=== PATIENT | male | born 1965 | race Two or more races ===

== ENCOUNTER → 2020-01-25 09:09 | Outpatient (BNVA) | payer MEDICAID, SELFPAY | PROVIDERS: Visit Provider Internal Medicine Gastroenterology | DX: K59.09 Other constipation (principal); K21.9 Gastro-esophageal reflux disease without esophagitis; K74.60 Unspecified cirrhosis of liver; D64.9 Anemia, unspecified; Z79.899 Other long term (current) drug therapy; Z86.19 Personal history of other infectious and parasitic diseases | CPT/HCPCS: 99213 ==

== ENCOUNTER 2020-01-26 10:40 | Emergency (ER) | payer MEDICAID, SELFPAY | END 2020-01-26 13:39 | disposition left against medical advice (07) | PROVIDERS: Emergency Provider Emergency Medicine | DX: R07.9 Chest pain, unspecified (principal); I10 Essential (primary) hypertension; F17.210 Nicotine dependence, cigarettes, uncomplicated | CPT/HCPCS: 99281 ==

== ENCOUNTER 2020-01-27 07:54 | Emergency (ER) | payer MEDICAID, SELFPAY ==
[2020-01-27 08:05] VITALS: BP 135/71; PULSE 74; RESP 14; TEMP 36.8; O2SAT 98; BMI 24.6
--- NOTE | 2020-01-27 08:19 | ECG_ITS ---
Test Reason : CHESTPAIN Blood Pressure : / mmHG Vent. Rate : 072 BPM Atrial Rate : 072 BPM P-R Int : 140 ms QRS Dur : 078 ms QT Int : 390 ms P-R-T Axes : 006 067 054 degrees QTc Int : 427 ms Normal sinus rhythm Nonspecific ST abnormality Inferior leads Abnormal ECG No significant change was found Referred By: Alley Hirsch Electronically Signed By:JOCELYNE RAINEY MD
--- NOTE | 2020-01-27 08:19 | XR_ITS ---
EXAMINATION: XR CHEST CLINICAL INFORMATION: Chest pain. COMPARISON: Chest 05/13/2019 TECHNIQUE: Frontal view of the chest was obtained. FINDINGS: The lungs are well-expanded and clear of acute process. The heart size and pulmonary vascularity is normal. No gross bony abnormality seen. Previously visualized rim calcified lesion along the posterior right eighth rib is not seen at this time. XR/XR chest 1V IMPRESSION: Unremarkable chest exam. No change from 05/13/2019.
--- NOTE | 2020-01-27 08:36 | ED.CHESTPAIN ---
HPI - Chest Pain General Chief Complaint: Chest Pain Stated Complaint: diff breathing, chest pain Time Seen by Provider: 01/27/20 08:29 Source: patient Mode of arrival: ambulatory Limitations: no limitations History of Present Illness HPI narrative: 54yoM c PMHx of hypertension, anemia, hepatitis-C, cirrhosis of liver without ascites and GERD presenting to the ED with complaints of diffuse chest pain/pressure with associated shortness of breath since yesterday a.m. while he was drinking coffee this started at 8AM and has been constant. Reports that he has associated right shoulder pain, neck pain and jaw pain. Reports nothing makes the symptoms worse and nothing makes the symptoms better. Reports he has never had these symptoms in the past. Denies recent travel, history of cancer, history of hypercoagulation disorder and recent surgery. Denies drug usage including cocaine usage and alcohol usage. Denies any other symptoms complaints or concerns at this time. Related Data Home Medications Medication Instructions Recorded Confirmed amlodipine 2.5 mg-benazepril 10 mg 1 cap PO DAILY 01/25/20 01/25/20 capsule calcium-vitamin D3-vitamin K 500 tab PO 01/25/20 01/25/20 mg-1,000 unit-40 mcg chewable tablet hydralazine 10 mg tablet 10 mg PO BID 01/25/20 01/25/20 lisinopril 40 mg tablet 40 mg PO DAILY 01/25/20 01/25/20 lubiprostone 24 mcg capsule 24 mcg PO BID cap 01/25/20 01/25/20 omeprazole 40 mg capsule,delayed 40 mg PO DAILY 01/25/20 01/25/20 release Previous Rx's Medication Instructions Recorded dicyclomine 20 mg tablet 20 mg PO QID PRN #120 tab 01/08/20 lubiprostone 24 mcg capsule 24 mcg PO BID #60 cap 01/25/20 cyclobenzaprine 10 mg PO TID PRN #10 tab NS 01/27/20 naproxen 500 mg PO BID PRN #10 tab NS 01/27/20 Allergies Allergy/AdvReac Type Severity Reaction Status Date / Time latex [LATEX] Allergy Mild RASH Verified 01/27/20 08:34 Review of Systems Review of Systems: Constitutional : No Weight loss, No Fever, No Chills, No Night Sweats, No Fatigue, No Malaise ENT/Mouth : No Hearing loss, No Ear Pain, No Nasal Congestion, No Sinus Pain, No Hoarseness, No sore throat, No Rhinorrhea, No Swallowing Difficulty Eyes: No Eye Pain, No Swelling, No Redness, No Foreign Body, No Discharge, No Vision Changes Cardiovascular : no Dyspnea on Exertion, No Orthopnea, No Edema, No extremity swelling, No Palpitations Respiratory : No Cough, No Sputum, No Wheezing, No Dyspnea Gastrointestinal : No Nausea, No Vomiting, No Diarrhea, No abdominal Pain Genitourinary : No Dysuria, No Urinary Frequency, No Hematuria, No Urinary Incontinence, No Urgency, No Flank Pain, No Urinary Flow Changes, No Hesitancy Musculoskeletal : No joint pain, No Myalgias, No Joint Swelling Skin : No Skin Lesions, No rash Neuro : No Weakness, No Numbness, No Paresthesias, No Loss of Consciousness, No Dizziness, No Headache Psych : No Anxiety/Panic, No Depression, No SI/HI/AH/VH Heme/Lymph: No Bruising, No Bleeding,No Lymphadenopathy Yes all other systems are reviewed and are negative [facility] Past Medical History Attestation statement: The following information was validated with the patient. Medical History Anemia Chronic constipation Cirrhosis of liver without ascites Depression GERD (gastroesophageal reflux disease) Hepatitis C virus infection resolved after antiviral drug therapy History of drug abuse History of Helicobacter pylori infection Hypertension Periumbilical abdominal pain Surgical History H/O inguinal hernia repair (~1989) H/O removal of cyst (~06/15/13) H/O wisdom tooth extraction History of cholecystectomy (~2010) History of colonoscopy Hx of endoscopy Hx of tonsillectomy S/P excision of lipoma (~06/2014) Family History Family History Father History of high blood pressure Mother History of depression Social History Social History Alcohol intake: never Smoking Status: Current every day smoker Tobacco Type: Cigarette Use of substances other than those prescribed or required for medical reasons: No Advance Directives: No Advance Directives Information Provided: Yes Physical Exam Vital Signs: Vital Signs: Vital Signs Temp Pulse Resp BP Pulse Ox 10/24/20 12:18 79 12 133/72 97 01/27/20 10:37 64 12 138/78 97 01/27/20 08:05 98.3 F 74 14 135/71 98 Body Mass Index 24.6 vital signs have been reviewed as normal and appeared to be correct. Blood pressure normal. Heart rate normal. Respiration rate normal. Temperature normal. Oxygen saturation normal. Appearance: Alert. Oriented X3. No acute distress. Head: Normal external exam. Normocephalic. Atraumatic. No Toth signs noted. No raccoon eyes noted Eyes: PERRLA. EOMI. Conjunctiva and sclera normal. Eyelids normal. ENT: EAC normal. TM's Normal. Pharynx normal. Uvula midline. Moist mucous membranes. No trismus noted. No drooling noted. No muffled voice noted. Neck: Normal inspection. Neck supple. FROM. No adenopathy. Thyroid Normal. No meningeal signs. No neck mass noted. CVS: Normal heart rate and rhythm. Heart sound normal. No murmurs noted. Pulses normal throughout. Respiratory: No respiratory distress. Painless inspiration. Breath sounds normal. No wheezes/rales/rhonchi noted. Chest nontender. No accessory muscle usage noted or decreased air movement noted. Abdomen: Soft and nontender. Bowel sounds normal in all 4 quadrants. No distention noted. No organomegaly noted. No visible injury noted. Back: No CVA tenderness. Full range of motion noted. Skin: Skin warm and dry. Normal skin color. Normal skin turgor. No rashes/lesions/lacerations noted. Extremities: No lower extremity edema. Extremities exhibit normal range of motion. Extremities nontender. Neuro: Oriented X 3. No motor deficit. No sensory deficit. Reflexes normal. Course Course Course Narrative: 8:20am 54yoM c PMHx of hypertension, anemia, hepatitis-C, cirrhosis of liver without ascites and GERD presenting to the ED with complaints of diffuse chest pain/pressure with associated shortness of breath since yesterday a.m. while he was drinking coffee this started at 8AM and has been constant. Reports that he has associated right shoulder pain, neck pain and jaw pain. Reports nothing makes the symptoms worse and nothing makes the symptoms better. Reports he has never had these symptoms in the past. Denies recent travel, history of cancer, history of hypercoagulation disorder and recent surgery. Denies drug usage including cocaine usage and alcohol usage. Denies any other symptoms complaints or concerns at this time. - Concern for ACS vs PE vs muscular strain - Plan: Labs, EKG, CXR then re-evaluate. Reevaluation(s) Reevaluation #1: Labs all within normal limits including troponin and D-dimer. Patient reports he is still having pain therefore given 15 mg of Toradol and 10 mg of Flexeril and re-obtain a troponin 3 hours after the 1st then will re-evaluate. Although this is most likely muscular as patient now is saying that it is pain in his trapezius aspect. Will re-evaluate. Time: 12:16 Reevaluation #2: Repeat 2nd troponin within normal limits. Patient reports he feels better after the Toradol and the Flexeril therefore most likely muscular. Will DC home with symptomatic treatment along with instructions to return if any new or worsening symptoms to follow-up with primary care provider. Patient understands agrees the plan. Time: 13:11 MDM - Chest Pain Medical Records Data Attestation: I reviewed the patient's medical records. Lab Data Attestation: I reviewed the patient's lab results. Result diagrams: 01/27/20 08:22 10 08:22 Labs: Lab Results 01/27/20 01/27/20 10 Range/Units 08:22 08:22 08:22 WBC 6.1 (4.8-10.8) X10*3/uL RBC 4.04 L (4.60-5.80) X10*6/uL Hgb 11.7 L (14.0-18.0) g/dl Hct 35.3 L (42-52) % MCV 87.4 (80-98) fL MCH 29.0 (27.0-33.0) pg MCHC 33.1 (31.0-36.0) g/dl RDW 13.3 (11.0-16.0) % Plt Count 115 L (160-400) X10*3/uL MPV 11.7 (9.4-12.4) fL Immature Gran % (Auto) 0.5 H (0.0-0.4) % Neut % (Auto) 55.8 (45-73) % Lymph % (Auto) 35.3 (20-40) % [place] % (Auto) 6.7 (2-11) % Eos % (Auto) 1.5 (0-4) % Baso % (Auto) 0.2 (0-2) % Lymph # (Auto) 2.2 (1.2-4.9) X10*3/uL [place] # (Auto) 0.4 (0.1-1.2) X10*3/uL Eos # (Auto) 0.1 (0.0-0.4) X10*3/uL Baso # (Auto) 0.0 (0.0-0.2) X10*3/uL Abs Immat Gran (auto) 0.03 (0.00-0.03) X10*3/uL Absolute Neuts (auto) 3.4 (2.0-8.3) X10*3/uL Absolute Nucleated RBC 0.000 (0.0-0.012) X10*3/uL Nucleated RBC % (auto) 0.0 (0.0-0.2) /100WBC PT INR D-Dimer < 200 NG/ML Hold Blue Top SEE NOTE Sodium 142 (135-145) mmol/L Potassium 4.2 (3.3-5.1) mmol/l Chloride 102 (96-108) mmol/L Carbon Dioxide 30 H (22-29) mmol/L Anion Gap 14 (12-20) BUN 26 H (9-16) mg/dL Creatinine 0.99 (0.5-1.4) mg/dL Estim Creat Clear Calc 83.3 Estimated GFR > 60 Random Glucose 131 H (60-115) mg/dL Calcium 9.1 (8.4-10.2) mg/dL Troponin I High Sens (<3.5-35.0) ng/L 01/27/20 01/27/20 01/27/20 Range/Units 08:22 10:28 12:24 WBC (4.8-10.8) X10*3/uL RBC (4.60-5.80) X10*6/uL Hgb (14.0-18.0) g/dl Hct (42-52) % MCV (80-98) fL MCH (27.0-33.0) pg MCHC (31.0-36.0) g/dl RDW (11.0-16.0) % Plt Count (160-400) X10*3/uL MPV (9.4-12.4) fL Immature Gran % (Auto) (0.0-0.4) % Neut % (Auto) (45-73) % Lymph % (Auto) (20-40) % [place] % (Auto) (2-11) % Eos % (Auto) (0-4) % Baso % (Auto) (0-2) % Lymph # (Auto) (1.2-4.9) X10*3/uL [place] # (Auto) (0.1-1.2) X10*3/uL Eos # (Auto) (0.0-0.4) X10*3/uL Baso # (Auto) (0.0-0.2) X10*3/uL Abs Immat Gran (auto) (0.00-0.03) X10*3/uL Absolute Neuts (auto) (2.0-8.3) X10*3/uL Absolute Nucleated RBC (0.0-0.012) X10*3/uL Nucleated RBC % (auto) (0.0-0.2) /100WBC PT Cancelled INR Cancelled D-Dimer Cancelled NG/ML Hold Blue Top Sodium (135-145) mmol/L Potassium (3.3-5.1) mmol/l Chloride (96-108) mmol/L Carbon Dioxide (22-29) mmol/L Anion Gap (12-20) BUN (9-16) mg/dL Creatinine (0.5-1.4) mg/dL Estim Creat Clear Calc Estimated GFR Random Glucose (60-115) mg/dL Calcium (8.4-10.2) mg/dL Troponin I High Sens < 3.5 < 3.5 (<3.5-35.0) ng/L Imaging Data Chest x-ray: Attestation: I personally reviewed and interpreted this imaging study as follows: Radiologist's impression: IMPRESSION: Unremarkable chest exam. No change from 05/13/2019. ECG Data ECG #1: Attestation: I personally reviewed and interpreted this ECG as follows: ECG interpretation date: 01/27/20 ECG interpretation time: 08:00 Prior ECG tracings: available for review Interpretation: Normal sinus rhythm with a ventricular rate of 72 normal NE interval, normal QRS duration, normal QT/QTC interval. No acute ischemic changes noted. Similar when compared to prior on Jan 26, 2020. Discharge Plan Discharge Clinical Impression: Atypical chest pain, Muscle strain Patient Disposition: Home, Self-Care Instructions: Chest Pain (ED), Muscle Spasm (ED) Prescriptions: New naproxen 500 mg tablet 500 mg PO BID PRN (Reason: pain) Qty: 10 RF: 0 cyclobenzaprine 10 mg tablet 10 mg PO TID PRN (Reason: muscle pain) Qty: 10 RF: 0 No Action dicyclomine 20 mg tablet 20 mg PO QID PRN (Reason: Abdominal cramps) Qty: 120 RF: 1 hydralazine 10 mg tablet 10 mg PO BID RF: 0 lisinopril 40 mg tablet 40 mg PO DAILY RF: 0 amlodipine-benazepril 2.5-10 mg capsule 1 cap PO DAILY RF: 0 omeprazole 40 mg capsule,delayed release(DR/EC) 40 mg PO DAILY RF: 0 calcium-vitamin D3-vitamin K [Citracal-D3 Soft Chew] 500 mg-1,000 unit-40 mcg tablet,chewable PO RF: 0 Amitiza 24 mcg capsule 24 mcg PO BID Qty: 60 RF: 1 Amitiza 24 mcg capsule 24 mcg PO BID RF: 0 Referrals: [facility] [Primary Care Provider] - 2 days Print Language: Frisian
[2020-01-27 09:06] LABS: Basophils Percent Auto 0.2 % (0-2); Eosinophils Absolute Auto 0.1 X10*3/uL (0.0-0.4); Eosinophils Percent Auto 1.5 % (0-4); Imm Gran Abs Auto 0.03 X10*3/uL (0.00-0.03); Imm Gran Pct Auto 0.5 % (0.0-0.4); PLT CLUMP 1; Red Cell Distribution Width 13.3 % (11.0-16.0); SCAN SMEAR FLAG 1
[2020-01-27 09:08] LABS: Hematocrit 35.3 % (42-52); Hemoglobin 11.7 g/dl (14.0-18.0); Lymphocytes Absolute Auto 2.2 X10*3/uL (1.2-4.9); Lymphocytes Percent Auto 35.3 % (20-40); Mean Corpuscular HGB Conc 33.1 g/dl (31.0-36.0); Mean Corpuscular Volume 87.4 fL (80-98); Mean Platelet Volume 11.7 fL (9.4-12.4); Monocytes Absolute Auto 0.4 X10*3/uL (0.1-1.2); Monocytes Percent Auto 6.7 % (2-11); Neutrophils Absolute Auto 3.4 X10*3/uL (2.0-8.3); Neutrophils Percent Auto 55.8 % (45-73); Red Blood Count 4.04 X10*6/uL (4.60-5.80); White Blood Count 6.1 X10*3/uL (4.8-10.8)
[2020-01-27 09:09] LABS: MANUAL DIFF FLAG NO
[2020-01-27 09:10] LABS: Platelet Count 115 X10*3/uL (160-400)
[2020-01-27 09:31] LABS: Anion Gap 14 (12-20); Blood Urea Nitrogen 26 mg/dL (9-16); Calcium 9.1 mg/dL (8.4-10.2); Carbon Dioxide 30 mmol/L (22-29); Chloride 102 mmol/L (96-108); Creatinine Clr Calc Pharmacy 83.3; Estimated Glomerular Filt Rate > 60; Glucose Random 131 mg/dL (60-115); Potassium 4.2 mmol/l (3.3-5.1); Sodium 142 mmol/L (135-145)
[2020-01-27 09:38] LABS: Troponin-I High Sensitivity < 3.5 ng/L (<3.5-35.0)
[2020-01-27 10:37] VITALS: BP 138/78; PULSE 64; RESP 12; O2SAT 97
[2020-01-27 11:43] LABS: D Dimer < 200 NG/ML
[2020-01-27] MEDS: Ketorolac Tromethamine 15 MG/ML VIAL IV (11:44)
[2020-01-27] MEDS: Cyclobenzaprine HCl 10 MG TABLET PO (11:44)
--- NOTE | 2020-01-27 11:48 | PC.NURSE ---
pt c/o R shoulder pain, radiating up to neck and jaw. pt reports lifting weights regularly. PA notified. medicated as per emr.
--- NOTE | 2020-01-27 12:17 | PC.NURSE ---
pt reporting signifcant improvement with pain
[2020-01-27 12:18] VITALS: BP 133/72; PULSE 79; RESP 12; O2SAT 97
[2020-01-27 12:58] LABS: Troponin-I High Sensitivity < 3.5 ng/L (<3.5-35.0)
== END 2020-01-27 13:35 | disposition home or self-care (01) ==
PROVIDERS: Physician Assistant Medical; Emergency Provider Emergency Medicine
DX: R07.89 Other chest pain (principal); M25.511 Pain in right shoulder; M54.2 Cervicalgia; R06.02 Shortness of breath; S46.911A Strain of unspecified muscle, fascia and tendon at shoulder and upper arm level, right arm, initial encounter; X58.XXXA Exposure to other specified factors, initial encounter; Y93.9 Activity, unspecified; Y92.9 Unspecified place or not applicable; Z79.899 Other long term (current) drug therapy; F17.200 Nicotine dependence, unspecified, uncomplicated; Z71.6 Tobacco abuse counseling
CPT/HCPCS: 36415; 71045; 80048; 84484; 85025; 85379; 85610; 93005; 96374; 99284; J1885

== ENCOUNTER 2020-03-21 13:37 | Outpatient (REF) | payer MEDICAID, SELFPAY ==
--- NOTE | 2020-03-21 13:45 | XR_ITS ---
EXAMINATION: XR SHOULDER, RIGHT CLINICAL INFORMATION: Pain COMPARISON: None TECHNIQUE: AP external rotation, Grashey, scapular Y, and axillary views of the right shoulder. FINDINGS: The bones and soft tissues are normal. No fracture. Glenohumeral and acromioclavicular alignment is anatomic with normal joint space. No abnormal soft tissue calcifications. XR/XR shoulder RT min 2V IMPRESSION: Normal right shoulder.
== END 2020-03-21 13:38 | disposition home or self-care (01) ==
LOC: HO.XRAY 13:37
PROVIDERS: PCP Internal Medicine; Visit Provider Internal Medicine
DX: M25.511 Pain in right shoulder (principal)
CPT/HCPCS: 73030

== ENCOUNTER → 2020-04-25 09:53 | Outpatient (BNVA) | payer MEDICAID, SELFPAY | PROVIDERS: Visit Provider Internal Medicine Gastroenterology ==

== ENCOUNTER 2020-04-30 17:35 | Emergency (ER) | payer MEDICAID, SELFPAY ==
--- NOTE | 2020-04-30 18:02 | ECG_ITS ---
Test Reason : CHEST PAIN Blood Pressure : / mmHG Vent. Rate : 074 BPM Atrial Rate : 074 BPM P-R Int : 140 ms QRS Dur : 072 ms QT Int : 344 ms P-R-T Axes : 044 067 075 degrees QTc Int : 381 ms Normal sinus rhythm Nonspecific ST abnormality Abnormal ECG When compared with ECG of 27-JAN-2020 08:00, No significant change was found Referred By: Generic ED Physician Electronically Signed By:Rosales Kaiser
[2020-04-30 18:32] VITALS: BP 130/73; PULSE 68; RESP 18; TEMP 36.7; O2SAT 97; BMI 25.1
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
--- NOTE | 2020-04-30 19:06 | XR_ITS ---
EXAMINATION: CHEST 1 VIEW CLINICAL INFORMATION: Left-sided chest pain. COMPARISON: January 27, 2020. TECHNIQUE: An AP view of the chest is provided. FINDINGS: The cardiac silhouette is not enlarged. The mediastinal and hilar contours are unremarkable. There are neither pleural effusions nor pneumothoraces. There are no consolidations. The osseous structures are stable. XR/XR chest 1V IMPRESSION: No evidence for acute disease.
[2020-04-30 19:51] LABS: Basophils Percent Auto 0.2 % (0-2); MANUAL DIFF FLAG SCAN; Monocytes Percent Auto 6.8 % (2-11); PLT CLUMP 1; SCAN SMEAR FLAG 1
[2020-04-30 19:52] LABS: Eosinophils Absolute Auto 0.1 X10*3/uL (0.0-0.4); Hematocrit 36.7 % (42-52); Hemoglobin 12.3 g/dl (14.0-18.0); Imm Gran Abs Auto 0.03 X10*3/uL (0.00-0.03); Imm Gran Pct Auto 0.5 % (0.0-0.4); Lymphocytes Absolute Auto 1.5 X10*3/uL (1.2-4.9); Lymphocytes Percent Auto 25.5 % (20-40); Mean Corpuscular HGB Conc 33.5 g/dl (31.0-36.0); Mean Corpuscular Hemoglobin 28.7 pg (27.0-33.0); Mean Corpuscular Volume 85.5 fL (80-98); Mean Platelet Volume 11.2 fL (9.4-12.4); Monocytes Absolute Auto 0.4 X10*3/uL (0.1-1.2); Neutrophils Absolute Auto 3.9 X10*3/uL (2.0-8.3); Platelet Count 129 X10*3/uL (160-400); Red Blood Count 4.29 X10*6/uL (4.60-5.80); Red Cell Distribution Width 13.2 % (11.0-16.0); White Blood Count 5.9 X10*3/uL (4.8-10.8)
[2020-04-30 19:58] LABS: SLIDE REVIEW VERIFIED
[2020-04-30 20:00] VITALS: BP 125/70; PULSE 72; RESP 13; TEMP 36.8; O2SAT 97
[2020-04-30 20:27] LABS: Anion Gap 14 (12-20); Blood Urea Nitrogen 28 mg/dL (9-16); Calcium 9.7 mg/dL (8.4-10.2); Carbon Dioxide 28 mmol/L (22-29); Chloride 104 mmol/L (96-108); Creatinine Clr Calc Pharmacy 90.6; Estimated Glomerular Filt Rate > 60; Glucose Random 99 mg/dL (60-115); Potassium 4.5 mmol/l (3.3-5.1); Sodium 141 mmol/L (135-145)
[2020-04-30 20:34] LABS: Troponin-I High Sensitivity < 3.5 ng/L (<3.5-35.0)
[2020-04-30 20:36] LABS: Glucose Urine UA NEG (NEG); Leukocyte Esterase Urine NEG (NEG); Nitrite Urine NEG (NEG); Specific Gravity - Urine >= 1.030 (1.005-1.025); Urine Blood NEG (NEG); Urine Ketones NEG (NEG); Urine Protein NEG (NEG-TRACE)
[2020-04-30 20:38] LABS: Appearance Urine CLEAR; Color Urine YELLOW
[2020-04-30 21:02] LABS: Amphetamine Screen Urine Not Detected (Not Detect); Barbiturates, Urine Not Detected (Not Detect); Benzodiazepines Screen Urine Not Detected (Not Detect); Cannabinoid Screen Urine Not Detected (Not Detect); Cocaine Screen Urine Not Detected (Not Detect); Opiate Screen Urine Not Detected (Not Detect); Phencyclidine Screen Urine Not Detected (Not Detect)
[2020-04-30 21:15] VITALS: BP 126/78; PULSE 74; RESP 10; O2SAT 98
--- NOTE | 2020-04-30 21:22 | PC.NURSE ---
pt reporting improvement with pain. continues to deny sob, dizziness, nausea. speaking in clear full sentences, resp even and nonlaboured. nsr on monitor. #20 in L AC. VS wnl since arrival.
[2020-04-30] MEDS: 0.9 % Sodium Chloride 1,000 ML 999 ML IVCONT (21:29)
== END 2020-04-30 22:24 | disposition home or self-care (01) ==
PROVIDERS: Nurse Practitioner Family; Emergency Provider Emergency Medicine Emergency Medical Services
DX: R07.89 Other chest pain (principal); E86.0 Dehydration; I10 Essential (primary) hypertension; F17.210 Nicotine dependence, cigarettes, uncomplicated; F19.11 Other psychoactive substance abuse, in remission
CPT/HCPCS: 36415; 71045; 80048; 80307; 81003; 84484; 85025; 93005; 96360; 99284

== ENCOUNTER 2020-05-01 07:52 | Outpatient (REF) | payer MEDICAID, SELFPAY ==
--- NOTE | 2020-05-01 08:00 | US_ITS ---
EXAMINATION: US ABDOMEN COMPLETE CLINICAL INFORMATION: Cirrhosis of liver. COMPARISON: Ultrasound abdomen 09/11/2019 and 03/10/2019. X-ray KUB 04/10/2019 and 03/10/2019. CT abdomen and pelvis 09/11/2018. TECHNIQUE: Real-time imaging of the abdominal viscera. FINDINGS: PANCREAS: Normal. ABDOMINAL AORTA: The proximal, mid, and distal segments are normal in caliber. INFERIOR VENA CAVA: Visualized portions are normal. LIVER: The liver is normal in size. The liver contour is nodular and lobulated. There is increased liver echogenicity. No focal hepatic lesion. There is no intrahepatic biliary duct dilatation seen. Normal hepatopedal flow seen in the portal vein on Doppler examination. There are periportal and head of the pancreas lymph nodes with the largest lymph node measuring 1.9 x 0.7 x 1.9 cm. GALLBLADDER: Surgically absent. COMMON BILE DUCT: Normal in caliber measuring 0.39 cm in diameter. RIGHT KIDNEY: There is an anechoic cyst in the midpole measuring 2.0 x 1.7 x 1.8 cm. No hydronephrosis or renal calculi. The kidney measures 10.6 cm in maximum dimension. LEFT KIDNEY: Normal. No hydronephrosis. No renal calculi or focal parenchymal lesions. The kidney measures 9.4 cm in maximum dimension. SPLEEN: Normal. The spleen measures 12 cm in maximum dimension. FREE FLUID: None. US/US abdomen complete IMPRESSION: Periportal lymph nodes. These are visualized on the previous ultrasound exam of 05/01/2010 and not described on exam from 2019. Diffuse hepatic steatosis with nodular liver surface and heterogeneous parenchyma suggestive of cirrhosis. Midpole right renal cyst measuring 2.0 cm.
== END 2020-05-01 07:53 | disposition home or self-care (01) ==
LOC: HO.US 07:52
PROVIDERS: Visit Provider Internal Medicine Gastroenterology
DX: K74.60 Unspecified cirrhosis of liver (principal)
CPT/HCPCS: 76700

== ENCOUNTER → 2020-05-02 09:57 | Outpatient (BNVA) | payer MEDICAID, SELFPAY | PROVIDERS: PCP Internal Medicine; Visit Provider Orthopaedic Surgery | DX: M67.919 Unspecified disorder of synovium and tendon, unspecified shoulder (principal) | CPT/HCPCS: 20610; 99202; J1100 ==

== ENCOUNTER 2020-05-10 07:44 | Outpatient (REF) | payer MEDICAID, SELFPAY ==
--- NOTE | ~2020-05-10 | MR_ITS ---
EXAMINATION: MR SHOULDER WITHOUT CONTRAST, RIGHT CLINICAL INFORMATION: Right shoulder pain. Decreased range of motion. Recent cortisone injection. COMPARISON: Right shoulder radiographs dated 03/21/2020 TECHNIQUE: MRI of the shoulder without contrast was performed on a high-field scanner. Examination is slightly limited by patient motion. Imaging sequences were repeated. FINDINGS: ROTATOR CUFF: There is mild undersurface fraying of the subscapularis tendon distally near the insertion. No tears. Supraspinatus, infraspinatus, and teres minor are intact. No muscle atrophy or fatty infiltration. BICEPS: Normal. CORACOACROMIAL ARCH: The undersurface of the acromion is curved with no subacromial spur. Mild acromioclavicular osteoarthritis. Small volume of fluid in the subacromial-subdeltoid bursa, most pronounced anteriorly. LABRUM/CAPSULE: There is undersurface fraying of the labrum superiorly. No tears. Joint capsule is thickened and edematous at the inferior glenohumeral ligament and axillary pouch. GLENOHUMERAL JOINT/MARROW: Small marginal osteophytes are present at the glenoid. There is mild chondral thinning at the humeral head superomedially and at the superior aspect of the glenoid. No fracture or malalignment. Marrow signal is normal. MR/MR shoulder RT wo con IMPRESSION: 1. Capsular thickening and edema at the glenohumeral joint as can be seen with adhesive capsulitis. 2. Articular-sided fraying of the subscapularis tendon. No discrete rotator cuff tear. 3. Mild acromioclavicular and glenohumeral osteoarthritis. Undersurface fraying of the superior labrum. 4. Minimal subacromial-subdeltoid bursitis.
== END 2020-05-10 07:45 | disposition home or self-care (01) ==
LOC: HO.MRI 07:44
PROVIDERS: Visit Provider Orthopaedic Surgery
DX: M67.919 Unspecified disorder of synovium and tendon, unspecified shoulder (principal)
CPT/HCPCS: 73221

== ENCOUNTER 2020-05-15 12:33 | Outpatient (RCR) | payer MEDICAID, SELFPAY ==
--- NOTE | 2020-05-16 16:34 | MHC.PT.EP ---
[facility] [place] Office [place] Office [place] Office [address] [phone] F: [phone] F: [phone] F: [phone] F: [phone] Physical Therapy Plan of Care Date of Evaluation: 05/15/20 Date of Surgery: NA Diagnosis: RIGHT SHOULDER IMPINGEMENT SYNDROME (UNSPECIFIED DISORDER OF SYNOVIUM AND TENDON, UNSPECIFIED SHOULDER M67.919) Assessment: Pt IS A PLEASANT 55 YO MALE WITH S/S CONSISTENT WITH SHOULDER IMPINGEMENT. IMPAIRMENTS INCLUDE DECREASED ROM, DECREASED STRENGTH, ALTERED POSTURE AND POSITIONING, INCREASED PAIN. FUNCTIONAL LIMITATIONS INCLUDE DECREASED ABILITY TO PERFORM LIFTING, REACHING, PUSHING AND PULLING, ALTERED ABILITY TO PERFORM HOMEMAKING AND SELF CARE TASKS, DISRUPTED SLEEP Frequency and Duration: The patient will be seen 2 X WEEK FOR 5 WEEKS Short Term Goals: INITIATE HEP AND SELF MANAGEMENT OF SYMPTOMS IN 2 WEEKS Fpc Goals: INDEPENDENT WITH HEP IN 5 WEEKS FULL, PAIN FREE SHOULDER MOBILITY IN 5 WEEKS TO PERFORM LIFTING TO SHOULDER HEIGHT WITH #5 OR GREATER AND PAIN NO GREATER THAN 2/10 IN 5 WEEKS Treatment Plan: Modalities to reduce pain, spasms and effusion. Manual therapy to restore motion and function. Therapeutic exercise to improve strength and flexibility. Neuromuscular re-education for posture and balance. Therapeutic activities to return to functional activities of daily living. Electronically signed by: JEFERSON RAY PT, DPT Please sign and return to therapist. Thank you for your referral.
--- NOTE | 2020-07-01 13:42 | MHC.PT.DC ---
[facility] [place] Office [place] Office [place] Office [address] Rafa Tsagn [address] [facility] [phone] F: [phone] F: [phone] F: [phone] F: [phone] Physical Therapy Discharge Report Diagnosis: RIGHT SHOULDER IMPINGEMENT SYNDROME (UNSPECIFIED DISORDER OF SYNOVIUM AND TENDON, UNSPECIFIED SHOULDER M67.919) Date of Surgery: NA Date of Evaluation: 05/15/20 Date of Discharge: 06/21/20 Treatments to Date: 1 Cancellations to Date: 2 No Shows to Date: 5 Discharge Status: Visit Non-compliance Discharge Summary: DID NOT RETURN AFTER INITIAL EVALUATION Electronically signed by: JEFERSON RAY PT, DPT Please sign and return to therapist. Thank you for your referral.
== END 2020-07-01 13:47 | disposition other institution (70) ==
LOC: HO.PT 12:33
PROVIDERS: PCP Family Medicine; Visit Provider Orthopaedic Surgery
DX: M67.919 Unspecified disorder of synovium and tendon, unspecified shoulder (principal)
CPT/HCPCS: 97110; 97161

== ENCOUNTER → 2020-10-17 10:02 | Outpatient (BNVA) | payer MEDICAID, SELFPAY | PROVIDERS: PCP Family Medicine; Visit Provider Internal Medicine Gastroenterology ==

== ENCOUNTER 2020-12-08 13:51 | Emergency (ER) | payer MEDICAID, SELFPAY ==
--- NOTE | ~2020-12-08 | XR_ITS ---
EXAMINATION: XR RIBS, LEFT CLINICAL INFORMATION: Left lateral rib pain post fall COMPARISON: None TECHNIQUE: Frontal view the chest and 3 views of the left ribs were obtained. FINDINGS: Mild asymmetric elevation of the right hemidiaphragm. Lungs are clear. No consolidation, pneumothorax, or pleural effusion. The cardiomediastinal silhouette and pulmonary vasculature are normal. Osseous structures are unremarkable. Ribs are intact. No displaced rib fractures are identified. XR/XR ribs LT min 3V w CXR1V IMPRESSION: No displaced rib fracture seen.
--- NOTE | ~2020-12-08 | XR_ITS ---
EXAMINATION: XR FOOT, LEFT CLINICAL INFORMATION: Pain and bruising. Fall. COMPARISON: None TECHNIQUE: AP, lateral, and oblique views of the left foot. FINDINGS: Bone alignment is normal. No fracture or dislocation is seen. The joint spaces are normal. Soft tissues are normal. XR/XR foot LT min 3V IMPRESSION: No fracture seen.
[2020-12-08 14:26] VITALS: BP 136/73; PULSE 78; RESP 18; TEMP 36.6; O2SAT 97; BMI 24.5
[2020-12-08] MEDS: oxyCODONE HCl Immed Release 5 MG TABLET PO (15:16)
--- NOTE | 2020-12-08 15:51 | ED.FALL ---
HPI - Fall General Chief Complaint: Fall Stated Complaint: FELL DOWN STAIRS L LEG INJ Time Seen by Provider: 12/08/20 15:06 Source: patient Mode of arrival: ambulatory Limitations: no limitations History of Present Illness HPI Narrative: 55-year-old male presenting to the ED with complaints of left lateral rib cage pain, left hip pain and left foot pain after he had a mechanical fall where he slipped and fell on approximately 6 steps in his home due to uneven steps while taking out the trash can yesterday. He denies head injury or loss of consciousness. He denies any other injuries complaints or concerns. He is not on any blood thinners. He denies any symptoms prior to the fall. He reports only pain after the fall no other symptoms. He denies prolonged downtime. complaint: fall Onset (ago): day(s) (Yesterday) Fall from: down stairs (#) (Approximately 6 steps) Fall witnessed: no Place fall occurred: home Loss of consciousness: none Prolonged down time: no Symptoms prior to fall: none Context: tripped/slipped (Due to uneven stairs) Location of injury: chest (Left lateral/posterior ribcage) and pelvis (Left hip) Location of injury - extremities: left: foot Severity: moderate Severity scale (1-10): >10 Quality: aching Associated symptoms (after fall): denies Related Data Home Medications Medication Instructions Recorded Confirmed amlodipine 2.5 mg-benazepril 10 mg 1 cap PO DAILY 01/25/20 10/17/20 capsule hydralazine 10 mg tablet 10 mg PO BID 01/25/20 10/17/20 lisinopril 40 mg tablet 40 mg PO DAILY 01/25/20 10/17/20 omeprazole 40 mg capsule,delayed 40 mg PO DAILY 01/25/20 10/17/20 release Previous Rx's Medication Instructions Recorded cyclobenzaprine 10 mg tablet 10 mg PO TID PRN #10 tab NS 01/27/20 naproxen 500 mg tablet 500 mg PO BID PRN #10 tab NS 01/27/20 bisacodyl 5 mg tablet,delayed 10 mg PO ONCE 1 Days #2 tab 02/16/20 release (Dulcolax (bisacodyl)) polyethylene glycol 3350 17 238 g PO .COMPLEX 1 Days #238 g 02/16/20 gram/dose oral powder (Miralax) sodium phosphates 19 gram-7 118 ml ME ONCE #133 ml 02/16/20 gram/118 mL enema (Fleet Enema) calcium-vitamin D3-vitamin K 500 1 tab PO ONCE 30 Days #30 tab 04/25/20 mg-1,000 unit-40 mcg chewable tablet (Citracal-D3 Soft Chew) lubiprostone 24 mcg capsule 24 mcg PO BID #60 cap 10/17/20 (Amitiza) dicyclomine 20 mg tablet 20 mg PO QID PRN #120 tab 11/27/20 hydrocodone 5 mg-acetaminophen 325 1 tab PO Q8H PRN #10 tab 12/08/20 mg tablet ibuprofen 800 mg tablet 800 mg PO Q8H PRN #14 tab 12/08/20 Allergies Allergy/AdvReac Type Severity Reaction Status Date / Time latex [LATEX] Allergy Mild RASH Verified 10/17/20 10:02 Review of Systems Review of Systems: Constitutional : No changes in activity, No lethargy, No recent prior head injury, No agitation, No increased fussiness ENT/Mouth : No Ear Pain, No Nasal discharge/drainage Eyes: No Eye Pain, No Swelling, No Redness, No Foreign Body, No Vision Changes Cardiovascular : No Chest Pain, No SOB Respiratory : No Cough Gastrointestinal : No Nausea, No Vomiting, No abdominal Pain Genitourinary : No Dysuria, No Urinary Frequency, No Urinary Incontinence, No Urgency, No Flank Pain Musculoskeletal : + joint pain to left foot and rib cage pain No neck stiffness, No back pain/injury Skin : No lacerations Neuro : No unsteady gait, No Paresthesias, No Loss of Consciousness, No altered mental status, No Headache Yes all other systems are reviewed and are negative FOR[facility]LY [facility], [facility] Past Medical History Attestation statement: The following information was validated with the patient. Medical History Anemia Chronic constipation Cirrhosis of liver without ascites Depression GERD (gastroesophageal reflux disease) Hepatitis C virus infection resolved after antiviral drug therapy History of drug abuse History of Helicobacter pylori infection Hypertension Periumbilical abdominal pain Rotator cuff dysfunction Surgical History H/O inguinal hernia repair (~1989) H/O removal of cyst (~06/15/13) H/O wisdom tooth extraction History of cholecystectomy (~2010) History of colonoscopy Hx of endoscopy Hx of tonsillectomy S/P excision of lipoma (~06/2014) Family History Family History Father History of high blood pressure Mother History of depression Social History Social History Household Members Other:: SISTER Alcohol intake: current Alcohol intake frequency: does not drink Cigarettes Per Day: 5 Advance Directives: Yes Advance Directives Information Provided: Yes Advance Directives on File: No Current occupational status: disabled Current occupation: right handed Physical Exam Vital Signs: Vital Signs: Last Vital Signs Temp 97.9 F 12/08/20 14:26 Pulse 78 12/08/20 14:26 Resp 18 12/08/20 14:26 BP 136/73 12/08/20 14:26 Pulse Ox 97 12/08/20 14:26 Body Mass Index 24.5 vital signs have been reviewed as normal and appeared to be correct. Blood pressure normal. Heart rate normal. Respiration rate normal. Temperature normal. Oxygen saturation normal. Appearance: Alert. Oriented X3. No acute distress. Head: Normal external exam. Normocephalic. Atraumatic. Eyes: PERRLA. EOMI. Conjunctiva and sclera normal. Eyelids normal. ENT: Pharynx normal. Uvula midline. Moist mucous membranes. Neck: Normal inspection. Neck supple. FROM. No adenopathy. No meningeal signs. CVS: Normal heart rate and rhythm. Heart sound normal. Pulses normal throughout. No murmurs/rales/gallops. Respiratory: No respiratory distress. Painless inspiration. Breath sounds normal. No wheezes/rales/rhonchi noted. Chest with tenderness of patient to left lateral ribcage. Not consistent with low chest. No obvious deformities or rashes noted. No accessory muscle usage noted or decreased air movement noted. Abdomen: Soft and nontender. Bowel sounds normal in all 4 quadrants. No distention noted. No organomegaly noted. No visible injury noted. Back: Full range of motion noted. No rashes/lesion/induration/fluctuance or signs of infection noted. Skin: Skin warm and dry. Normal skin color. Normal skin turgor. No rashes/lesions/lacerations noted. Extremities: Patient with tenderness of patient to left foot at the plantar aspect/medial aspect with ecchymosis noted. Although patient has full range of motion of all toes/foot and ankle joint. No obvious deformities or signs of infection noted. all other Extremities exhibit normal range of motion and nontender. Neuro: Oriented X 3. No motor deficit. No sensory deficit. Reflexes normal. Normal steady gait. No focal neuro deficits noted. Vascular: + radial pulses/+ 2 distal pedal pulses/+2 dorsalis pedis b/l. Normal cap refill. No cyanosis noted to upper extremity nails and lower extremity toes nails. Course Course Course Narrative: Patient presenting to the ED with complaints of left lateral rib cage pain and left foot pain after he had a mechanical fall yesterday while he was throwing up the trash down his steps fell approximately 6 steps. No head injury loss of consciousness. Not on any blood thinners. Denies any other symptoms. X-rays obtained of ribs and left foot and negative for any acute processes. Will DC home with symptomatic treatment instructions to return if any new or worsening symptoms to follow up with primary care provider. Patient understands agrees with this plan. MDM - Fall Medical Records Attestation: I reviewed the patient's medical records. Imaging Data Left foot x-ray: Attestation: I personally reviewed and interpreted this imaging study as follows: Radiologist's impression: FINDINGS: Bone alignment is normal. No fracture or dislocation is seen. The joint spaces are normal. Soft tissues are normal.? XR/XR foot LT min 3V IMPRESSION: No fracture seen. Ribs/chest x-ray: Attestation: I personally reviewed and interpreted this imaging study as follows: Radiologist's impression: FINDINGS: Mild asymmetric elevation of the right hemidiaphragm. Lungs are clear. No consolidation, pneumothorax, or pleural effusion. The cardiomediastinal silhouette and pulmonary vasculature are normal. Osseous structures are unremarkable. Ribs are intact. No displaced rib fractures are identified. XR/XR ribs LT min 3V w CXR1V IMPRESSION: No displaced rib fracture seen. Discharge Plan Discharge Clinical Impression: Fall, Sprain of left foot, Traumatic ecchymosis of left foot, Strain of chest wall Patient Disposition: Home, Self-Care Instructions: Muscle Strain (ED), Foot Contusion (ED), Foot Sprain (ED), Fall Prevention (ED) Prescriptions: New ibuprofen 800 mg tablet 800 mg PO Q8H PRN (Reason: pain) Qty: 14 RF: 0 hydrocodone-acetaminophen 5-325 mg tablet 1 tab PO Q8H PRN (Reason: pain) Qty: 10 RF: 0 No Action polyethylene glycol 3350 [Miralax] 17 gram/dose powder 238 g PO .COMPLEX 1 Days Qty: 238 RF: 0 bisacodyl [Dulcolax (bisacodyl)] 5 mg tablet,delayed release (DR/EC) 10 mg PO ONCE 1 Days Qty: 2 RF: 0 Fleet Enema 19-7 gram/118 mL enema 118 ml ME ONCE Qty: 133 RF: 0 dicyclomine 20 mg tablet 20 mg PO QID PRN (Reason: for cramps) Qty: 120 RF: 1 naproxen 500 mg tablet 500 mg PO BID PRN (Reason: pain) Qty: 10 RF: 0 cyclobenzaprine 10 mg tablet 10 mg PO TID PRN (Reason: muscle pain) Qty: 10 RF: 0 calcium-vitamin D3-vitamin K [Citracal-D3 Soft Chew] 500 mg-1,000 unit-40 mcg tablet,chewable 1 tab PO ONCE 30 Days Qty: 30 RF: 4 Amitiza 24 mcg capsule 24 mcg PO BID Qty: 60 RF: 3 hydralazine 10 mg tablet 10 mg PO BID RF: 0 lisinopril 40 mg tablet 40 mg PO DAILY RF: 0 amlodipine-benazepril 2.5-10 mg capsule 1 cap PO DAILY RF: 0 omeprazole 40 mg capsule,delayed release(DR/EC) 40 mg PO DAILY RF: 0 Referrals: Christine Mustafa MD [Primary Care Provider] - 2 days Print Language: Jamaican
[2020-12-08 16:04] VITALS: RESP 19
== END 2020-12-08 16:10 | disposition home or self-care (01) ==
PROVIDERS: Emergency Provider Emergency Medicine; PCP Family Medicine
DX: S93.602A Unspecified sprain of left foot, initial encounter (principal); M79.672 Pain in left foot; R07.81 Pleurodynia; W01.0XXA Fall on same level from slipping, tripping and stumbling without subsequent striking against object, initial encounter; Y93.9 Activity, unspecified; Y92.9 Unspecified place or not applicable; Y99.9 Unspecified external cause status; F17.210 Nicotine dependence, cigarettes, uncomplicated; Z71.6 Tobacco abuse counseling; Z79.899 Other long term (current) drug therapy
CPT/HCPCS: 71101; 73630; 99284

== ENCOUNTER 2022-09-15 09:02 | Emergency (ER) | payer MEDICAID, SELFPAY ==
--- NOTE | ~2022-09-15 | XR_ITS ---
Study: Right foot and ankle INDICATION: Pain after injury TECHNIQUE: 3 view right foot, 2 view right ankle FINDINGS: Arrow points to the plantar proximal foot No fracture or dislocation. Alignment and articulations are maintained. Mortise is intact. No focal soft tissue swelling. XR/XR ankle RT min 3V IMPRESSION: No acute bony pathology right foot and ankle
--- NOTE | ~2022-09-15 | XR_ITS ---
Study: Right foot and ankle INDICATION: Pain after injury TECHNIQUE: 3 view right foot, 2 view right ankle FINDINGS: Arrow points to the plantar proximal foot No fracture or dislocation. Alignment and articulations are maintained. Mortise is intact. No focal soft tissue swelling. XR/XR foot RT min 3V IMPRESSION: No acute bony pathology right foot and ankle
[2022-09-15 09:12] VITALS: BP 143/86; PULSE 105; RESP 20; TEMP 36.2; O2SAT 95; BMI 24.4
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
[2022-09-15] MEDS: Ketorolac Tromethamine 15 MG/ML VIAL IM (10:51)
== END 2022-09-15 10:54 | disposition home or self-care (01) ==
PROVIDERS: Emergency Provider Emergency Medicine; PCP Family Medicine
DX: M65.271 Calcific tendinitis, right ankle and foot (principal); M25.571 Pain in right ankle and joints of right foot
CPT/HCPCS: 73610; 73630; 96372; 99283; 99284; J1885

== ENCOUNTER 2022-11-04 08:57 | Outpatient (REF) | payer MEDICAID, SELFPAY ==
[2022-11-04 11:20] LABS: MANUAL DIFF FLAG NO
[2022-11-04 11:46] LABS: Basophils Percent Auto 0.2 % (0-2); Eosinophils Percent Auto 0.5 % (0-4); Hematocrit 36.6 % (42.0-52.0); Hemoglobin 11.7 g/dl (14.0-18.0); Imm Gran Abs Auto 0.01 X10*3/uL (0.00-0.03); Imm Gran Pct Auto 0.2 % (0.0-0.4); Lymphocytes Absolute Auto 1.5 X10*3/uL (1.2-4.9); Lymphocytes Percent Auto 24.8 % (20-40); Mean Corpuscular Hemoglobin 27.7 pg (27.0-33.0); Mean Corpuscular Volume 86.5 fL (80.0-98.0); Mean Platelet Volume 12.6 fL (9.4-12.4); Monocytes Absolute Auto 0.4 X10*3/uL (0.1-1.2); Monocytes Percent Auto 6.2 % (2-11); Neutrophils Percent Auto 68.1 % (45-73); Platelet Count 148 X10*3/uL (160-400); Red Blood Count 4.23 X10*6/uL (4.60-5.80); Red Cell Distribution Width 13.8 % (11.0-16.0); White Blood Count 5.9 X10*3/uL (4.8-10.8)
[2022-11-04 12:19] LABS: Alanine Aminotransferase 22 U/L (0-40); Albumin Level 4.5 g/dL (3.5-5.0); Alkaline Phosphatase 74 U/L (39-117); Anion Gap 15 (12-20); Aspartate Amino Transferase 25 U/L (5-37); Bilirubin Total 0.5 mg/dL (0.0-1.0); Blood Urea Nitrogen 28 mg/dL (9-16); Calcium 10.3 mg/dL (8.4-10.2); Carbon Dioxide 27 mmol/L (22-29); Chloride 106 mmol/L (96-108); Cholesterol 129 mg/dL; Estimated Glomerular Filt Rate > 60; Glucose Random 121 mg/dL (60-115); HDL Cholesterol 37 mg/dL; LDL Cholesterol Calculated 74 mg/dl; Potassium 4.4 mmol/L (3.3-5.1); Sodium 144 mmol/L (135-145); Triglycerides 90 mg/dL
[2022-11-04 12:24] LABS: Amphetamine Screen Urine Not Detected (Not Detect); Barbiturates, Urine Not Detected (Not Detect); Benzodiazepines Screen Urine Not Detected (Not Detect); Cannabinoid Screen Urine Not Detected (Not Detect); Cocaine Screen Urine POSITIVE (Not Detect); Fentanyl, urine POSITIVE (Not Detect); Opiate Screen Urine POSITIVE (Not Detect); Phencyclidine Screen Urine Not Detected (Not Detect)
== END 2022-11-04 08:58 | disposition home or self-care (01) ==
LOC: HO.HHCL 08:57
PROVIDERS: Visit Provider Nurse Practitioner Psychiatric/Mental Health
DX: Z79.899 Other long term (current) drug therapy (principal)
CPT/HCPCS: 80053; 80061; 80307; 85025

== ENCOUNTER 2022-11-29 09:48 | Emergency (ER) | payer MEDICAID, SELFPAY ==
--- NOTE | 2022-11-29 | ECG_ITS ---
Test Reason : CHEST PAIN Blood Pressure : / mmHG Vent. Rate : 068 BPM Atrial Rate : 068 BPM P-R Int : 162 ms QRS Dur : 080 ms QT Int : 392 ms P-R-T Axes : 067 067 065 degrees QTc Int : 416 ms Normal sinus rhythm Normal ECG When compared with ECG of 30-APR-2020 17:52, No significant change was found Referred By: Generic ED Physician Electronically Signed By:JOAN BEGUM
--- NOTE | ~2022-11-29 | XR_ITS ---
EXAMINATION: XR CHEST CLINICAL INFORMATION: Chest pain COMPARISON: Prior chest x-ray 12/08/2020 TECHNIQUE: Frontal view of the chest was obtained. FINDINGS: No significant abnormality is noted involving the heart, lungs, mediastinum, bony thorax or soft tissues. XR/XR chest 1V IMPRESSION: No radiographic evidence of acute cardiopulmonary disease.
[2022-11-29 09:52] VITALS: BP 138/77; PULSE 92; RESP 16; TEMP 36.9; O2SAT 94; BMI 23.9
--- NOTE | 2022-11-29 10:19 | PC.NURSE ---
Patient states about 2 days ago he started having productive cough, sob, and full body aches. Reports nausea wit no vomiting or diarrhea. States chest hurts from coughing. lungs clear bilat NSR on monitor, 93% on RA
--- NOTE | 2022-11-29 10:25 | ED_ITS ---
HPI - URI/Sore Throat General Chief Complaint: Upper Respiratory Symptoms Stated Complaint: Diff breathing/CP/Lots of phlegm Time Seen by Provider: 11/29/22 10:07 Source: patient Mode of arrival: ambulatory Limitations: no limitations History of Present Illness HPI Narrative: This is 57 years old male presented to emergency department complaining of cough for congestion ongoing for about 3 days denies any fever chills vomiting and diarrhea. MD elicited complaint: cough Onset (ago): day(s) (3) Consistency: constant Severity: moderate Description of mucous: yellow, green and purulent Able to tolerate fluids by mouth: Yes Exacerbating factors: nothing Related Data Home Medications Medication Instructions Recorded Confirmed amlodipine 2.5 mg-benazepril 10 mg 1 cap PO DAILY 01/25/20 10/17/20 capsule hydralazine 10 mg tablet 10 mg PO BID 01/25/20 10/17/20 lisinopril 40 mg tablet 40 mg PO DAILY 01/25/20 10/17/20 omeprazole 40 mg capsule,delayed 40 mg PO DAILY 01/25/20 10/17/20 release Previous Rx's Medication Instructions Recorded cyclobenzaprine 10 mg tablet 10 mg PO TID PRN muscle pain #10 01/27/20 tabs naproxen 500 mg tablet 500 mg PO BID PRN pain #10 tabs 01/27/20 bisacodyl 5 mg tablet,delayed 10 mg PO ONCE Bowel Preparation 1 02/16/20 release (Dulcolax (bisacodyl)) day #2 tabs polyethylene glycol 3350 17 238 g PO .COMPLEX 1 day #238 grams 02/16/20 gram/dose oral powder (Miralax) sodium phosphates 19 gram-7 118 ml DE ONCE constipation #133 mL 02/16/20 gram/118 mL enema (Fleet Enema) calcium-vitamin D3-vitamin K 500 1 tab PO ONCE 30 days #30 tabs 04/25/20 mg-1,000 unit-40 mcg chewable tablet (Citracal-D3 Soft Chew) hydrocodone 5 mg-acetaminophen 325 1 tab PO Q8H PRN pain #10 tabs 12/08/20 mg tablet ibuprofen 800 mg tablet 800 mg PO Q8H PRN pain #14 tabs 12/08/20 lubiprostone 24 mcg capsule 24 mcg PO BID 30 days #60 caps 11/30/21 (Amitiza) dicyclomine 20 mg tablet 20 mg PO QID PRN for cramps 30 06/08/22 days #120 tabs naproxen 500 mg tablet 500 mg PO BID 7 days #14 tabs 09/15/22 prednisone 20 mg tablet 20 mg PO DAILY 7 days #7 tabs 09/15/22 doxycycline monohydrate 100 mg 100 mg PO BID #14 caps 11/29/22 capsule (Monodox) Allergies Allergy/AdvReac Type Severity Reaction Status Date / Time latex [LATEX] Allergy Mild RASH Verified 11/29/22 09:57 Review of Systems Constitutional: Constitutional: Reports no additional constitutional complaints ENT: Reports as per HPI Cardiovascular: Cardiovascular: Reports as per HPI Musculoskeletal: Musculoskeletal: Reports no additional musculoskeletal complaints PMFSH Past Medical History Attestation statement: The following information was validated with the patient. Medical History Anemia Chronic constipation Cirrhosis of liver without ascites Depression GERD (gastroesophageal reflux disease) Hepatitis C virus infection resolved after antiviral drug therapy History of drug abuse History of Helicobacter pylori infection Hypertension Periumbilical abdominal pain Rotator cuff dysfunction Surgical History H/O inguinal hernia repair (~1989) H/O removal of cyst (~06/15/13) H/O wisdom tooth extraction History of cholecystectomy (~2010) History of colonoscopy Hx of endoscopy Hx of tonsillectomy S/P excision of lipoma (~06/2014) Family History Family History Father History of high blood pressure Mother History of depression Social History Social History Household Members Other:: SISTER Alcohol intake: former Cigarettes Per Day: 5 Smoked in Last 30 Days: Yes Use of substances other than those prescribed or required for medical reasons: Yes Substance Use Type: Marijuana Advance Directives: No Advance Directives Information Provided: Yes Current occupational status: disabled Current occupation: right handed Physical Exam Vital Signs: Vital Signs: Last Vital Signs Temp 98.9 F 11/29/22 10:40 Pulse 72 11/29/22 10:40 Resp 18 11/29/22 10:40 BP 139/74 11/29/22 10:40 Pulse Ox 94 11/29/22 09:52 O2 Del Method Room Air 11/29/22 09:52 BMI result Body Mass Index 23.9 Const: General: cooperative Nutritional Appearance: average body habitus and well nourished Orientation/consciousness: patient oriented x3 Li mitations: no limitations HEENT: Head: Yes normal to inspection General nose exam: Normal external nose present Face and sinus: Yes normal facial exam Mouth: Normal oral and palatal mucosa present Throat: Yes posterior oropharynx normal Neck: Neck: Yes normal visual inspection and Yes full ROM Chest: Chest palpation & inspection: normal inspection of the chest Resp: Effort & Inspection: able to speak in complete sentences Auscultation: rhonchi Cardio: Jugular venous distension: no JVD Rate: regular rate Rhythm: regular rhythm GI: Inspection: Yes normal to inspection Palpation (GI): Soft to palpation, not firm and nontender Auscultation: normal bowel sounds Skin: General skin exam: no rashes or lesions noted Lesions: no lesions Rashes: no rashes Neuro: General: patient oriented x3 Course Reevaluation(s) Reevaluation #1: Patient remained stable chest x-ray was normal labs within normal limit okay to discharge Time: 12:02 Medical Decision Making Medical Decision Making [facility] Narrative: Patient presented cough or congestion it is reasonable to obtain a chest x-ray labs and reassess @1200 PM remains stable chest x-ray negative will discharge the patient home on antibiotic for possible bronchitis Differential Diagnosis Differential Diagnoses: The differential diagnosis associated with the presentation includes Pneumonia/pneumothorax/viral syndrome/bronchitis Admission/Observation Consideration of admission/observation: Escalation of care including admission/observation considered Lab Data [facility] Lab Attestation statement: I reviewed the patient's lab results. 11/29/22 10:46 11/29/22 10:46 Labs: Lab Results 11/29/22 11/29/22 11/29/22 Range/Units 10:46 10:46 10:46 WBC 6.7 (4.8-10.8) X10*3/uL RBC 4.06 L (4.60-5.80) X10*6/uL Hgb 11.4 L (14.0-18.0) g/dl Hct 34.0 L (42.0-52.0) % MCV 83.7 (80.0-98.0) fL MCH 28.1 (27.0-33.0) pg MCHC 33.5 (31.0-36.0) g/dl RDW 13.8 (11.0-16.0) % Plt Count 126 L (160-400) X10*3/uL MPV 10.8 (9.4-12.4) fL Immature Gran % (Auto) 0.3 (0.0-0.4) % Neut % (Auto) 76.2 H (45-73) % Lymph % (Auto) 16.1 L (20-40) % [place] % (Auto) 6.3 (2-11) % Eos % (Auto) 1.0 (0-4) % Baso % (Auto) 0.1 (0-2) % Lymph # (Auto) 1.1 L (1.2-4.9) X10*3/uL [place] # (Auto) 0.4 (0.1-1.2) X10*3/uL Eos # (Auto) 0.1 (0.0-0.4) X10*3/uL Baso # (Auto) 0.0 (0.0-0.2) X10*3/uL Abs Immat Gran (auto) 0.02 (0.00-0.03) X10*3/uL Absolute Neuts (auto) 5.1 (2.0-8.3) x10*3/uL Absolute Nucleated RBC 0.000 (0.0-0.012) X10*3/uL Nucleated RBC % (auto) 0.0 (0.0-0.2) /100WBC Sodium 143 (135-145) mmol/L Potassium 3.4 D (3.3-5.1) mmol/L Chloride 106 (96-108) mmol/L Carbon Dioxide 25 (22-29) mmol/L Anion Gap 15 (12-20) BUN 26 H (9-16) mg/dL Creatinine 1.18 (0.5-1.4) mg/dL Estim Creat Clear Calc 67.4 Estimated GFR > 60 Random Glucose 113 (60-115) mg/dL Calcium 10.1 (8.4-10.2) mg/dL COVID-19 (THIEN) (Negative) COVID-19 Clin Com Influenza Type A (JUDD) Negative (Negative) Influenza Type B (JUDD) Negative (Negative) Influenza A & B Note See Note 11/29/22 Range/Units 11:16 WBC (4.8-10.8) X10*3/uL RBC (4.60-5.80) X10*6/uL Hgb (14.0-18.0) g/dl Hct (42.0-52.0) % MCV (80.0-98.0) fL MCH (27.0-33.0) pg MCHC (31.0-36.0) g/dl RDW (11.0-16.0) % Plt Count (160-400) X10*3/uL MPV (9.4-12.4) fL Immature Gran % (Auto) (0.0-0.4) % Neut % (Auto) (45-73) % Lymph % (Auto) (20-40) % [place] % (Auto) (2-11) % Eos % (Auto) (0-4) % Baso % (Auto) (0-2) % Lymph # (Auto) (1.2-4.9) X10*3/uL [place] # (Auto) (0.1-1.2) X10*3/uL Eos # (Auto) (0.0-0.4) X10*3/uL Baso # (Auto) (0.0-0.2) X10*3/uL Abs Immat Gran (auto) (0.00-0.03) X10*3/uL Absolute Neuts (auto) (2.0-8.3) x10*3/uL Absolute Nucleated RBC (0.0-0.012) X10*3/uL Nucleated RBC % (auto) (0.0-0.2) /100WBC Sodium (135-145) mmol/L Potassium (3.3-5.1) mmol/L Chloride (96-108) mmol/L Carbon Dioxide (22-29) mmol/L Anion Gap (12-20) BUN (9-16) mg/dL Creatinine (0.5-1.4) mg/dL Estim Creat Clear Calc Estimated GFR Random Glucose (60-115) mg/dL Calcium (8.4-10.2) mg/dL COVID-19 (THIEN) Negative (Negative) COVID-19 Clin Com See Note Influenza Type A (JUDD) (Negative) Influenza Type B (JUDD) (Negative) Influenza A & B Note Independent Interpretation I performed an independent interpretation of an: EKG (Normal sinus rhythm rate [address]-T changes) and Plain X-Ray Interpretation: Chest x-ray reviewed by me normal Radiology Impression Discussion of test interpretation with radiology: I have reviewed the radiologist's reading. Radiologist Impression: Accession Number(s): [id number] cc: Evans Marquez MD~ EXAMINATION: XR CHEST CLINICAL INFORMATION: Chest pain COMPARISON: Prior chest x-ray 12/08/2020 TECHNIQUE: Frontal view of the chest was obtained. FINDINGS: No significant abnormality is noted involving the heart, lungs, mediastinum, bony thorax or soft tissues. XR/XR chest 1V IMPRESSION: No radiographic evidence of acute cardiopulmonary disease. ? Dictated By: Horacio Pate MD Signed By: <Electronically signed by Horacio Pate MD in OV> 11/29/22 1100 DD/ 1015 Prescription Management I considered prescription management with: Antibiotic Discharge Plan Discharge Clinical Impression: Bronchitis Patient Disposition: Home, Self-Care Instructions: Acute Bronchitis (ED) Prescriptions: New doxycycline monohydrate [Monodox] 100 mg capsule 100 mg PO BID Qty: 14 0RF No Action polyethylene glycol 3350 [Miralax] 17 gram/dose powder 238 g PO .COMPLEX 1 Days Qty: 238 0RF Rx Instructions: 238 grams PO As directed prior to procedure, bowel prep bisacodyl [Dulcolax (bisacodyl)] 5 mg tablet,delayed release (DR/EC) 10 mg PO ONCE 1 Days Qty: 2 0RF Rx Instructions: Take 2 tablets at 12:00pm the day before your procedure, bowel prep Fleet Enema 19-7 gram/118 mL enema 118 ml DE ONCE Qty: 133 0RF Rx Instructions: As directed Amitiza 24 mcg capsule 24 mcg PO BID 30 Days Qty: 60 3RF dicyclomine 20 mg tablet 20 mg PO QID PRN (Reason: for cramps) 30 Days Qty: 120 1RF naproxen 500 mg tablet 500 mg PO BID PRN (Reason: pain) Qty: 10 0RF cyclobenzaprine 10 mg tablet 10 mg PO TID PRN (Reason: muscle pain) Qty: 10 0RF ibuprofen 800 mg tablet 800 mg PO Q8H PRN (Reason: pain) Qty: 14 0RF hydrocodone-acetaminophen 5-325 mg tablet 1 tab PO Q8H PRN (Reason: pain) Qty: 10 0RF Rx Instructions: Patient may request partial fill prednisone 20 mg tablet 20 mg PO DAILY 7 Days Qty: 7 0RF naproxen 500 mg tablet 500 mg PO BID 7 Days Qty: 14 0RF calcium-vitamin D3-vitamin K [Citracal-D3 Soft Chew] 500 mg-1,000 unit-40 mcg tablet,chewable 1 tab PO ONCE 30 Days Qty: 30 4RF hydralazine 10 mg tablet 10 mg PO BID lisinopril 40 mg tablet 40 mg PO DAILY amlodipine-benazepril 2.5-10 mg capsule 1 cap PO DAILY omeprazole 40 mg capsule,delayed release(DR/EC) 40 mg PO DAILY Referrals: Christine Mustafa MD [Primary Care Provider] - 2 days Interventions: ED Discharge Assessment Last Done: 11/29/22 12:15 Discharge Date/Time: 11/29/22 12:31
[2022-11-29 10:40] VITALS: BP 139/74; PULSE 72; RESP 18; TEMP 37.2
[2022-11-29 10:51] LABS: MANUAL DIFF FLAG NO
[2022-11-29 10:52] LABS: Basophils Percent Auto 0.1 % (0-2); Eosinophils Absolute Auto 0.1 X10*3/uL (0.0-0.4); Hemoglobin 11.4 g/dl (14.0-18.0); Imm Gran Abs Auto 0.02 X10*3/uL (0.00-0.03); Imm Gran Pct Auto 0.3 % (0.0-0.4); Lymphocytes Absolute Auto 1.1 X10*3/uL (1.2-4.9); Lymphocytes Percent Auto 16.1 % (20-40); Mean Corpuscular HGB Conc 33.5 g/dl (31.0-36.0); Mean Corpuscular Hemoglobin 28.1 pg (27.0-33.0); Mean Corpuscular Volume 83.7 fL (80.0-98.0); Mean Platelet Volume 10.8 fL (9.4-12.4); Monocytes Absolute Auto 0.4 X10*3/uL (0.1-1.2); Monocytes Percent Auto 6.3 % (2-11); Neutrophils Absolute Auto 5.1 x10*3/uL (2.0-8.3); Neutrophils Percent Auto 76.2 % (45-73); Platelet Count 126 X10*3/uL (160-400); Red Blood Count 4.06 X10*6/uL (4.60-5.80); Red Cell Distribution Width 13.8 % (11.0-16.0); White Blood Count 6.7 X10*3/uL (4.8-10.8)
[2022-11-29 11:04] LABS: Anion Gap 15 (12-20); Blood Urea Nitrogen 26 mg/dL (9-16); Calcium 10.1 mg/dL (8.4-10.2); Carbon Dioxide 25 mmol/L (22-29); Chloride 106 mmol/L (96-108); Creatinine Clr Calc Pharmacy 67.4; Estimated Glomerular Filt Rate > 60; Glucose Random 113 mg/dL (60-115); Potassium 3.4 mmol/L (3.3-5.1); Sodium 143 mmol/L (135-145)
[2022-11-29 11:06] LABS: IDNOW Serial# 6674DD1D; Influenza A Negative (Negative); Influenza B2 Negative (Negative)
[2022-11-29 11:33] LABS: COVID-19 Test Negative (Negative); IDNOW Serial# 6674DD1D
--- NOTE | 2022-11-29 12:15 | PC.NURSE ---
Discharge plan reviewed with patient who verbalized understanding
== END 2022-11-29 12:31 | disposition home or self-care (01) ==
PROVIDERS: Emergency Provider Emergency Medicine; PCP Family Medicine
DX: J20.9 Acute bronchitis, unspecified (principal); R07.9 Chest pain, unspecified; R05.9 Cough, unspecified; Z20.822 Contact with and (suspected) exposure to COVID-19
CPT/HCPCS: 71045; 80048; 85025; 87502; 87635; 93005; 99284

== ENCOUNTER 2023-03-24 13:18 | Outpatient (AMB) | payer MEDICAID, SELFPAY ==
--- NOTE | 2023-03-24 13:19 | A.OFFVIS_ITS ---
Intake Vital Signs 03/24/23 13:24 BP 128/72 Blood Pressure Location Lt radial Position Sitting Pulse 96 Pulse Source Pulse Oximeter Pulse Oximetry (%) 97 Oxygen Delivery Method Room Air Intake Visit Reasons: MAT Intake Intake Note: the patient presents for a mat visit Director Of Cardiac Cath Lab Required: No Allergies latex [LATEX] Allergy (Mild, Verified 03/24/23 13:25) RASH Do you need a note to return to daycare/school/sports/work: No HPI MAT Intake HPI Details Patient presents today to explore transitioning from Methadone to suboxone He currently is a patient of [facility] in [place] His MTD dose is currently 50mg, tapered down from 72mg. He previously has tried to self-taper, but ended up experiencing withdrawal symptoms that were bad enough he needed to visit the ED to stabilize. He is expressing much fear about the transition as he does not want to experience withdrawal like he previously has again. 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 He has a of nearly 30 years that he reports is a good recovery support for him He is stably housed and has stable transportation He reports being amish and finding comfort in his yarsani and reading the Bible Substance Use Hx Heroin- started when he was 24, has had a period of recovery spanning 25 years, reports relapse 6 months ago. He is unsure what brought about the relapse but reports he is desperately wanting to be clean . His use is intermittent and when he uses it is 1 bag / day. His use is intranasal, however historically he has used intravenously. He has taken suboxone in the past He has done cocaine in the distant past Occasionally smokes marijuana vape Smokes 1/2 pack of cigarettes daily He denies ever sharing needles, and has purchased them from pharmacy in the past He denies hx of overdose Reports multiple attempts at detox, most recently with [facility] history He does not have psych providers at this time He has never been psychiatrically hospitalized Reports occasional depression, but denies self harm, self harm thoughts, or any SI past or present Medical Hx He reports no know drug allergies PMHx: HTN (controlled with medications), childhood asthma, Hep C years ago that he receieved treatment for, scarring of the liver His PCP is Dr. Ma at [facility] Medical History Anemia Chronic constipation Cirrhosis of liver without ascites Depression GERD (gastroesophageal reflux disease) Hepatitis C virus infection resolved after antiviral drug therapy History of drug abuse History of Helicobacter pylori infection Hypertension Periumbilical abdominal pain Rotator cuff dysfunction Surgical History H/O inguinal hernia repair (~1989) H/O removal of cyst (~06/15/13) H/O wisdom tooth extraction History of cholecystectomy (~2010) History of colonoscopy Hx of endoscopy Hx of tonsillectomy S/P excision of lipoma (~06/2014) Family History Father History of high blood pressure Mother History of depression Social History Household Members Other:: SISTER Alcohol intake: former Cigarettes Per Day: 5 Substance Use Type: Marijuana Current occupational status: disabled Current occupation: right handed Review of Systems Const Reports as per HPI Physical Exam Vital Signs: Last Vital Signs Pulse 96 03/24/23 13:24 BP 128/72 03/24/23 13:24 Pulse Ox 97 03/24/23 13:24 Oxygen Delivery Method Room Air 03/24/23 13:24 Const General: cooperative and no acute distress Nutritional Appearance: thin Resp Effort & Inspection: normal respiratory effort Psych Appearance: grossly normal Mental Status: mental status grossly normal Speech and movement: Normal speech and movement present Affect: normal affect Attitude: cooperative Thought process: Normal thought process present Assessment & Plan Assessment & Plan (1) Opioid use disorder: Code(s): F11.90 - Opioid use, unspecified, uncomplicated Plan: -Provided with information about recovery advocate, he is to think about if he wants or not -Provided information and reviewed method for transitioning off of methadone to suboxone -Discussed risk reduction -Reviewed comfort meds -He plans to go home and discuss with his before he makes any decisions. -Follow up in 1 week Coding Level of Care Code Est Pt Level 4 (25295) Diagnoses Opioid use disorder F11.90
[2023-03-24 13:24] VITALS: BP 128/72; PULSE 96; O2SAT 97
== END 2023-03-24 15:03 | disposition home or self-care (01) ==
PROVIDERS: PCP Family Medicine; Visit Provider Nurse Practitioner Family
DX: F11.90 Opioid use, unspecified, uncomplicated (principal)
CPT/HCPCS: 99214

== ENCOUNTER → 2023-03-24 13:18 | Outpatient (BNVA) | payer MEDICAID, SELFPAY | PROVIDERS: PCP Family Medicine; Visit Provider Nurse Practitioner Family | DX: F11.20 Opioid dependence, uncomplicated (principal) | CPT/HCPCS: 99212 ==

== ENCOUNTER 2023-05-28 11:53 | Emergency (ER) | payer MEDICAID, SELFPAY ==
[2023-05-28 12:15] VITALS: BP 139/72; PULSE 99; RESP 18; TEMP 36.7; O2SAT 100; BMI 21.8
--- NOTE | 2023-05-28 12:15 | ED_ITS ---
HPI - General Adult General Chief complaint: ETOH/Substance Use Stated complaint: Substance Abuse Seeking Detox Time Seen by Provider: 05/28/23 12:56 Source: patient and RN notes reviewed Mode of arrival: ambulatory Limitations: no limitations History of Present Illness HPI narrative: This is a 58-year-old male with a history of opiate use disorder on methadone, who presents emergency department to ?get off methadone?. Patient states that he has been on methadone for 3-4 years. 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 He tried discussing this with the methadone clinic however they were not receptive and he is here to get off of methadone altogether. He states that he is still using, states that he uses a bag of heroin today. States that he is otherwise feeling well. No other complaints or concerns at this time. MD complaint: Methadone tapering Relieving factors: none Exacerbating factors: none Associated symptoms: denies other symptoms Treatments prior to arrival: none Related Data Home Medications Medication Instructions Recorded Confirmed amlodipine 2.5 mg-benazepril 10 mg 1 cap PO DAILY 01/25/20 10/17/20 capsule hydralazine 10 mg tablet 10 mg PO BID 01/25/20 05/31/23 lisinopril 40 mg tablet 40 mg PO DAILY 01/25/20 05/31/23 omeprazole 40 mg capsule,delayed 40 mg PO DAILY 01/25/20 05/31/23 release Previous Rx's Medication Instructions Recorded bisacodyl 5 mg tablet,delayed 10 mg (2 x 5 mg) PO ONCE Bowel 02/16/20 release (Dulcolax (bisacodyl)) Preparation 1 day #2 tabs calcium-vitamin D3-vitamin K 500 1 tab PO ONCE 30 days #30 tabs 04/25/20 mg-1,000 unit-40 mcg chewable tablet (Citracal-D3 Soft Chew) ibuprofen 800 mg tablet 800 mg PO Q8H PRN pain #14 tabs 12/08/20 naproxen 500 mg tablet 500 mg PO BID 7 days #14 tabs 09/15/22 hydroxyzine pamoate 50 mg capsule 50 mg PO BID PRN anxiety #30 caps 05/31/23 mirtazapine 7.5 mg tablet 7.5 mg PO BEDTIME #30 tabs 05/31/23 Allergies Allergy/AdvReac Type Severity Reaction Status Date / Time latex [LATEX] Allergy Mild RASH Verified 06/02/23 13:33 Review of Systems 2 Review of Systems: Yes all other systems are reviewed and are negative Constitutional: Constitutional: Reports as per [facility] Past Medical History Attestation statement: The following information was validated with the patient. Medical History Rotator cuff dysfunction Cirrhosis of liver without ascites Anemia Periumbilical abdominal pain Chronic constipation History of Helicobacter pylori infection Hypertension Depression History of drug abuse GERD (gastroesophageal reflux disease) Hepatitis C virus infection resolved after antiviral drug therapy Surgical History Hx of endoscopy History of colonoscopy H/O removal of cyst (~06/15/13) S/P excision of lipoma (~06/2014) H/O wisdom tooth extraction History of cholecystectomy (~2010) H/O inguinal hernia repair (~1989) Hx of tonsillectomy Family History Family History Father History of high blood pressure Mother History of depression Social History Social History Household Members Other:: SISTER Alcohol intake: former Cigarettes Per Day: 5 Smoked in Last 30 Days: Yes Substance Use Type: Former Substance User Advance Directives: No Advance Directives Information Provided: No Current occupational status: disabled Current occupation: right handed Physical Exam ED Vital Signs: Vital Signs - 24 hr 05/28/23 12:15 Temperature 98.0 F Pulse Rate 99 Respiratory Rate 18 Blood Pressure 139/72 Pulse Oximetry 100 Oxygen Delivery Method Room Air BMI result Body Mass Index 21.8 Const General: cooperative, comfortable and no acute distress Orientation/consciousness: patient oriented x3 Limitations: no limitations HENMT Head: Yes normal to inspection, Yes normocephalic and Yes atraumatic Ears: hearing grossly normal bilaterally General nose exam: Normal external nose present Face and sinus: Yes normal facial exam Mouth: Normal oral and palatal mucosa present, oropharynx normal and moist mucous membranes Throat: Yes posterior oropharynx normal Eyes General: appearance normal, both eyes and all related structures Eyelids: Yes eyelids normal Conjunctivae: conjunctivae normal Sclerae: sclerae normal Pupils: Equal, round and reactive pupils present EOM: EOMs intact bilaterally Neck Neck: Yes normal visual inspection, Yes full ROM and Yes no lymphadenopathy Lymphatic: no lymphadenopathy noted Chest Chest palpation & inspection: normal inspection of the chest Resp Effort & Inspection: normal respiratory effort and able to speak in complete sentences Auscultation: clear to auscultation bilaterally, no crackles, no rales, no rhonchi and no wheezes Cardio Rate: regular rate Rhythm: regular rhythm Heart sounds: S1 normal heart sound present and S2 normal heart sound present GI Inspection: Yes normal to inspection Skin General skin exam: no rashes or lesions noted Trauma: no lacerations or abrasions Wounds: no wounds Neuro General: patient oriented x3 and moves all extremities Cranial nerves: Yes Equal, round and reactive pupils present Extrem General: Yes normal to inspection Right upper extremity: normal to inspection Left upper extremity: normal to inspection Right lower extremity: normal to inspection Left lower extremity: normal to inspection Course Course Course Narrative: RME:?58 yo male hx of HTN, GERD, hep c, opioid use disorder on methadone, here He is currently being titrated off of methadone weekly. he states I need to do this faster to get back to work . he believes he is on 30mg daily however they are titrating him blindly so he is not quite sure of the dose. he has been on methadone for approx 5 years. his only complaint at present is myalgias. he enodorses occasional etoh consumption. denies current illicit substance use. Full HPI, ROS and PE to be performed by the primary ED provider. Medications Administered Discontinued Medications Generic Name Dose Route Start Last Admin Trade Name Freq PRN Reason Stop Dose Admin Sodium Chloride 1,000 mls @ 999 mls/hr 05/28/23 13:20 05/28/23 15:30 Ns IV 05/28/23 14:20 Infused .Q1H1M ONE Infusion Medical Decision Making Medical Decision Making [facility] Narrative: This is a 58-year-old male, with a history of opioid use disorder on methadone, presenting to the emergency department to get off of methadone. On arrival, vital signs within normal limits. Patient admits that he is still using fentanyl on top of his methadone dosing. Labs were ordered out in triage, he does have a slight increase in his creatinine from previous labs as well as an elevated BUN, given 1 L of IV fluids. He is feeling well, with no complaints. Patient met with recovery Services who set up external resources to start patient on suboxone - will follow up outpatient. Stable for d/c. Differential Diagnosis Differential Diagnoses: The differential diagnosis associated with the presentation includes Opioid use disorder, depression, anxiety, withdrawal Lab Data MDM Lab Attestation statement: I reviewed the patient's lab results. No leukocytosis, H&H around his baseline, create Shayna slightly elevated at 1.37, BUN 27. 05/28/23 12:27 05/28/23 12:26 Labs: Lab Results 05/28/23 05/28/23 Range/Units 12:26 12:27 WBC 7.7 (4.8-10.8) X10*3/uL RBC 4.06 L (4.60-5.80) X10*6/uL Hgb 11.6 L (14.0-18.0) g/dl Hct 34.1 L (42.0-52.0) % MCV 84.0 (80.0-98.0) fL MCH 28.6 (27.0-33.0) pg MCHC 34.0 (31.0-36.0) g/dl RDW 14.1 (11.0-16.0) % Plt Count 158 L D (160-400) X10*3/uL MPV 10.5 (9.4-12.4) fL Immature Gran % (Auto) 0.5 H (0.0-0.4) % Neut % (Auto) 80.8 H (45-73) % Lymph % (Auto) 13.8 L (20-40) % Ray % (Auto) 4.5 (2-11) % Eos % (Auto) 0.3 (0-4) % Baso % (Auto) 0.1 (0-2) % Lymph # (Auto) 1.1 L (1.2-4.9) X10*3/uL Ray # (Auto) 0.4 (0.1-1.2) X10*3/uL Eos # (Auto) 0.0 (0.0-0.4) X10*3/uL Baso # (Auto) 0.0 (0.0-0.2) X10*3/uL Abs Immat Gran (auto) 0.04 H (0.00-0.03) X10*3/uL Absolute Neuts (auto) 6.2 (2.0-8.3) x10*3/uL Absolute Nucleated RBC 0.000 (0.0-0.012) X10*3/uL Nucleated RBC % (auto) 0.0 (0.0-0.2) /100WBC Sodium 142 (135-145) mmol/L Potassium 4.1 (3.3-5.1) mmol/L Chloride 107 (96-108) mmol/L Carbon Dioxide 26 (22-29) mmol/L Anion Gap 13 (12-20) BUN 27 H (9-16) mg/dL Creatinine 1.37 (0.5-1.4) mg/dL Estim Creat Clear Calc 54.2 Estimated GFR 53 Random Glucose 90 (60-115) mg/dL Calcium 10.3 H (8.4-10.2) mg/dL Magnesium 1.9 (1.6-2.6) mg/dL Salicylates < 5.0 L (15-30) mg/dL Discharge Plan Discharge Clinical Impression: Opioid use disorder Patient Disposition: Home, Self-Care Instructions: Opioid Use Disorder (ED) Additional Instructions: Please go to [facility] tomorrow at 8:00 a.m. as a walk-in. Please follow-up at [facility] to see Nelly on Wednesday at 3:15 pm. Follow all instructions that your given through the addiction Medicine Services. If any new or worsening symptoms occur, please return for re-evaluation. Prescriptions: No Action bisacodyl [Dulcolax (bisacodyl)] 5 mg tablet,delayed release (DR/EC) 10 mg PO ONCE 1 Days Qty: 2 0RF Rx Instructions: Take 2 tablets at 12:00pm the day before your procedure, bowel prep ibuprofen 800 mg tablet 800 mg PO Q8H PRN (Reason: pain) Qty: 14 0RF naproxen 500 mg tablet 500 mg PO BID 7 Days Qty: 14 0RF calcium-vitamin D3-vitamin K [Citracal-D3 Soft Chew] 500 mg-1,000 unit-40 mcg tablet,chewable 1 tab PO ONCE 30 Days Qty: 30 4RF hydralazine 10 mg tablet 10 mg PO BID lisinopril 40 mg tablet 40 mg PO DAILY amlodipine-benazepril 2.5-10 mg capsule 1 cap PO DAILY omeprazole 40 mg capsule,delayed release(DR/EC) 40 mg PO DAILY hydroxyzine pamoate 50 mg capsule 50 mg PO BID PRN (Reason: anxiety) Qty: 30 0RF mirtazapine 7.5 mg tablet 7.5 mg PO BEDTIME Qty: 30 0RF Interventions: ED Discharge Assessment Last Done: 05/28/23 16:56 Discharge Date/Time: 05/28/23 16:56
[2023-05-28 12:31] LABS: MANUAL DIFF FLAG NO
[2023-05-28 12:32] LABS: Basophils Percent Auto 0.1 % (0-2); Eosinophils Percent Auto 0.3 % (0-4); Hematocrit 34.1 % (42.0-52.0); Hemoglobin 11.6 g/dl (14.0-18.0); Imm Gran Abs Auto 0.04 X10*3/uL (0.00-0.03); Imm Gran Pct Auto 0.5 % (0.0-0.4); Lymphocytes Absolute Auto 1.1 X10*3/uL (1.2-4.9); Lymphocytes Percent Auto 13.8 % (20-40); Mean Corpuscular Hemoglobin 28.6 pg (27.0-33.0); Mean Platelet Volume 10.5 fL (9.4-12.4); Monocytes Absolute Auto 0.4 X10*3/uL (0.1-1.2); Monocytes Percent Auto 4.5 % (2-11); Neutrophils Absolute Auto 6.2 x10*3/uL (2.0-8.3); Neutrophils Percent Auto 80.8 % (45-73); Platelet Count 158 X10*3/uL (160-400); Red Blood Count 4.06 X10*6/uL (4.60-5.80); Red Cell Distribution Width 14.1 % (11.0-16.0); White Blood Count 7.7 X10*3/uL (4.8-10.8)
[2023-05-28 12:45] LABS: Anion Gap 13 (12-20); Blood Urea Nitrogen 27 mg/dL (9-16); Calcium 10.3 mg/dL (8.4-10.2); Carbon Dioxide 26 mmol/L (22-29); Chloride 107 mmol/L (96-108); Creatinine Clr Calc Pharmacy 54.2; Estimated Glomerular Filt Rate 53; Glucose Random 90 mg/dL (60-115); Magnesium 1.9 mg/dL (1.6-2.6); Potassium 4.1 mmol/L (3.3-5.1); Sodium 142 mmol/L (135-145)
[2023-05-28 12:46] LABS: Salicylate < 5.0 mg/dL (15-30)
[2023-05-28] MEDS: 0.9 % Sodium Chloride 1,000 ML 999 ML IV (14:08)
--- NOTE | 2023-05-28 15:26 | MHC.RECOVRN ---
Met with pt in [facility] to discuss plan. 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 Pt reports he is currently at 39 mg through [facility] in [place]. Pt has been working with the [facility] and has been decreasing from 60 mg. Pt is interested in Suboxone, discussed methadone to Suboxone transition with microdosing. Pt reports he had been to the [facility] a couple months ago and discussed this transition, however, chickened out. Pt reports he is ready to start the induction process. Pt educated regarding the collaboration that is necessary between [facility] and [facility]. Pt also reports heroin/fentanyl use, 1 bag daily, IN, as well as cocaine, IN. Educated pt on challenges with microdosing while on methadone and using and increased risk of precipitated withdrawal. Pt verbalizes understanding. Discussed possibility of ATS in order to stabilize on only methadone and then present to the [facility] to begin microdosing induction. Pt agreeable with that plan. Plan to refer pt to [facility] for [facility]. Provider aware.
--- NOTE | 2023-05-28 16:20 | MHC.RECOVRN ---
Have not heard response from [facility]. Checked in with pt, plan to present as walk in at 8AM tomorrow. Pt also has [facility] appt Wednesday 05/31 at 3:15PM with Nelly Santoyo. Denies questions or concerns for t/w.
== END 2023-05-28 16:56 | disposition home or self-care (01) ==
PROVIDERS: Physician Assistant Medical; Emergency Provider Emergency Medicine
DX: F11.90 Opioid use, unspecified, uncomplicated (principal); I10 Essential (primary) hypertension; D64.9 Anemia, unspecified; K21.9 Gastro-esophageal reflux disease without esophagitis; B19.20 Unspecified viral hepatitis C without hepatic coma
CPT/HCPCS: 36415; 80048; 80179; 83735; 85025; 96360; 99283; 99284

== ENCOUNTER 2023-05-31 15:16 | Outpatient (AMB) | payer MEDICAID, SELFPAY ==
[2023-05-31 15:23] VITALS: BP 136/84; PULSE 80; O2SAT 97
--- NOTE | 2023-05-31 15:23 | MHC.AM.SUB ---
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 Required: No Allergies latex [LATEX] Allergy (Mild, Verified 06/02/23 13:33) RASH Medication List - Last Reconciled 05/31/23 by Nelly Santoyo CNP amlodipine-benazepril 2.5-10 mg 1 cap PO DAILY bisacodyl (Dulcolax (bisacodyl)) 10 mg (2 x 5 mg) PO ONCE 1 day calcium-vitamin D3-vitamin K 500 mg-1,000 unit-40 mcg (Citracal-D3 Soft Chew) 1 tab PO ONCE 30 days hydralazine 10 mg PO BID ibuprofen 800 mg PO Q8H PRN lisinopril 40 mg PO DAILY naproxen 500 mg PO BID 7 days omeprazole 40 mg PO DAILY Do you need a note to return to daycare/school/sports/work: No HPI MAT HPI Details Patient presents for transition to suboxone from methadone He reports his current methadone dose is 42mg Previously at 60mg He expresses and presents with a sense of urgency to complete transition LUAN 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 Unable to provide rationale other than he wants to be done with methadone He continues to use fentanyl occasionally, last use Wednesday, 2-3 bags per day Denies any other substance use Reviewed process for transitioning from methadone to buprenorphine and challenges with ongoing fentanyl use. Provided written resource as well as encouraging patient to make a plan with [facility] Discussed ATS as another potential plan for managing transition [facility], [facility] Medical History Rotator cuff dysfunction Cirrhosis of liver without ascites Anemia Periumbilical abdominal pain Chronic constipation History of Helicobacter pylori infection Hypertension Depression History of drug abuse GERD (gastroesophageal reflux disease) Hepatitis C virus infection resolved after antiviral drug therapy Surgical History Hx of endoscopy History of colonoscopy H/O removal of cyst (~06/15/13) S/P excision of lipoma (~06/2014) H/O wisdom tooth extraction History of cholecystectomy (~2010) H/O inguinal hernia repair (~1989) Hx of tonsillectomy Family History Father History of high blood pressure Mother History of depression Social History Household Members Other:: SISTER Alcohol intake: former Cigarettes Per Day: 5 Smoked in Last 30 Days: Yes Substance Use Type: Former Substance User Advance Directives: No Advance Directives Information Provided: No Current occupational status: disabled Current occupation: right handed Review of Systems Const Reports as per HPI and Reports no additional complaints Physical Exam Vital Signs: Last Vital Signs Pulse 80 05/31/23 15:23 BP 136/84 05/31/23 15:23 Pulse Ox 97 05/31/23 15:23 Oxygen Delivery Method Room Air 05/31/23 15:23 Const General: cooperative and anxious Nutritional Appearance: average body habitus Orientation/consciousness: patient oriented x3 Neuro General: patient oriented x3 Psych Appearance: well kempt Speech and movement: Clear speech present Affect: Animated affect present and Anxious affect present Assessment & Plan Assessment & Plan (1) Opioid use disorder: Code(s): F11.90 - Opioid use, unspecified, uncomplicated Plan: patient to continue methadone encouraged not to speed up taper comfort medications ordered patient to follow up Medications: New hydroxyzine pamoate 50 mg PO BID PRN 30 caps 0RF anxiety mirtazapine 7.5 mg PO BEDTIME 30 tabs 0RF Coding Level of Care Code Est Pt Level 4 (67400) Diagnoses Opioid use disorder F11.90
== END 2023-05-31 16:15 | disposition home or self-care (01) ==
PROVIDERS: Visit Provider Nurse Practitioner Psychiatric/Mental Health
DX: F11.90 Opioid use, unspecified, uncomplicated (principal)
CPT/HCPCS: 99214

== ENCOUNTER → 2023-05-31 15:16 | Outpatient (BNVA) | payer MEDICAID, SELFPAY | PROVIDERS: Visit Provider Nurse Practitioner Psychiatric/Mental Health | DX: Z51.81 Encounter for therapeutic drug level monitoring (principal); F11.20 Opioid dependence, uncomplicated | CPT/HCPCS: 99212 ==

== ENCOUNTER 2023-06-02 13:17 | Emergency (ER) | payer MEDICAID, SELFPAY ==
--- NOTE | ~2023-06-02 | CT_ITS ---
EXAMINATION: CT HEAD WITHOUT CONTRAST CLINICAL INFORMATION: Headache. COMPARISON: None. TECHNIQUE: Contiguous axial imaging was performed from the skullbase to vertex without intravenous administration of contrast. This CT examination was performed using dose optimization techniques as appropriate, variously including the following: *Automated exposure control *Adjustment of mA and/or kV according to patient size (this includes techniques or standardized protocols for targeted exams where dose is matched to indication/reason for exam; i.e. extremities or head) *Use of iterative reconstruction technique DLP: 616 mGy-cm. FINDINGS: There is no evidence of acute intracranial hemorrhage or territorial infarction. No abnormal mass effect or midline shift is seen. Desouza to white matter differentiation is well preserved. No extra-axial fluid collections are identified. The ventricles are normal in size. There is no abnormal attenuation within the brain parenchyma. The osseous structures and soft tissues are normal. The mastoid air cells and visualized portions of the paranasal sinuses are well aerated. CT/CT head/brain wo IV con IMPRESSION: No acute intracranial pathology.
--- NOTE | ~2023-06-02 | XR_ITS ---
EXAMINATION: XR CHEST CLINICAL INFORMATION: Chest pain. COMPARISON: None available. TECHNIQUE: 2 views of the chest were obtained. FINDINGS: No significant abnormality is noted involving the heart, lungs, mediastinum, bony thorax or soft tissues. XR/XR chest 2V IMPRESSION: Unremarkable examination.
--- NOTE | 2023-06-02 13:18 | ECG_ITS ---
Test Reason : chest pain Blood Pressure : / mmHG Vent. Rate : 070 BPM Atrial Rate : 070 BPM P-R Int : 134 ms QRS Dur : 086 ms QT Int : 370 ms P-R-T Axes : 021 071 064 degrees QTc Int : 399 ms Normal sinus rhythm Normal ECG When compared with ECG of 29-NOV-2022 10:18, No significant change was found Referred By: Catherine Gomes Electronically Signed By:ASHA LUNA
--- NOTE | 2023-06-02 13:31 | ED_ITS ---
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 He was treated for hepatitis C several years ago successfully. He has also a lifelong smoker and has a history of hypertension and is on hydralazine and amlodipine. The patient was feeling fine when he woke up this morning at around 06:30. At around 11:00 o'clock he was doing some housework when he developed left-sided chest pain. The chest pain began as mild and progressed to a very severe pressure-like pain. This was associated with the development of a fairly abrupt onset headache as well. The patient says he has never had chest pain like this before and he has never had a headache like this before. He called his ex who came to his house at around 13:00 and recommended he come to the hospital. She drove him to the hospital. While waiting to be seen his chest pain has subsided and an incompletely resolved. His headache has also subsided and is feeling much better. He wonders whether his symptoms could be secondary to some cleaning liquid that he was using when he was doing house cleaning. He said that there had been no particular odor to the fluid and he does not think it was any particularly toxic cleaning fluid but he can not think of anything else that might have caused his symptoms. The patient's mother is still alive in her 80s. The patient's father at the age of 84 possibly of congestive heart failure. The patient's father had also had a stroke in his 40s and had had kidney disease. Related Data Home Medications Medication Instructions Recorded Confirmed amlodipine 2.5 mg-benazepril 10 mg 1 cap PO DAILY 01/25/20 10/17/20 capsule hydralazine 10 mg tablet 10 mg PO BID 01/25/20 05/31/23 lisinopril 40 mg tablet 40 mg PO DAILY 01/25/20 05/31/23 omeprazole 40 mg capsule,delayed 40 mg PO DAILY 01/25/20 05/31/23 release Previous Rx's Medication Instructions Recorded bisacodyl 5 mg tablet,delayed 10 mg (2 x 5 mg) PO ONCE Bowel 02/16/20 release (Dulcolax (bisacodyl)) Preparation 1 day #2 tabs calcium-vitamin D3-vitamin K 500 1 tab PO ONCE 30 days #30 tabs 04/25/20 mg-1,000 unit-40 mcg chewable tablet (Citracal-D3 Soft Chew) ibuprofen 800 mg tablet 800 mg PO Q8H PRN pain #14 tabs 12/08/20 naproxen 500 mg tablet 500 mg PO BID 7 days #14 tabs 09/15/22 hydroxyzine pamoate 50 mg capsule 50 mg PO BID PRN anxiety #30 caps 05/31/23 mirtazapine 7.5 mg tablet 7.5 mg PO BEDTIME #30 tabs 05/31/23 Allergies Allergy/AdvReac Type Severity Reaction Status Date / Time latex [LATEX] Allergy Mild RASH Verified 06/02/23 13:33 Review of Systems 2 Review of Systems: Yes all other systems are reviewed and are negative [facility] Past Medical History Medical History Rotator cuff dysfunction Cirrhosis of liver without ascites Anemia Periumbilical abdominal pain Chronic constipation History of Helicobacter pylori infection Hypertension Depression History of drug abuse GERD (gastroesophageal reflux disease) Hepatitis C virus infection resolved after antiviral drug therapy Surgical History Hx of endoscopy History of colonoscopy H/O removal of cyst (~06/15/13) S/P excision of lipoma (~06/2014) H/O wisdom tooth extraction History of cholecystectomy (~2010) H/O inguinal hernia repair (~1989) Hx of tonsillectomy Family History Family History Father History of high blood pressure Mother History of depression Social History Social History Household Members Other:: SISTER Alcohol intake: former Cigarettes Per Day: 5 Smoked in Last 30 Days: Yes Substance Use Type: Former Substance User Advance Directives: No Advance Directives Information Provided: No Current occupational status: disabled Current occupation: right handed Physical Exam ED Vital Signs: Vital Signs - 24 hr 06/02/23 13:33 06/02/23 14:18 06/02/23 16:26 Temperature 98 F 98.3 F Pulse Rate 75 73 68 Respiratory Rate 18 12 12 Blood Pressure 119/66 136/64 110/53 L Pulse Oximetry 97 98 95 Oxygen Delivery Method Room Air Room Air Room Air BMI result Body Mass Index 23.6 Const Other: The patient is a slim 58-year-old who looks quite healthy considering his history of cirrhosis and smoking. He does not appear in any distress. HENMT Other: The face is symmetrical. ?Mucous membranes moist.. Eyes Other: Pupils are round equal, conjunctivae are clear, extraocular movements intact Neck Other: No JVD. The neck is supple. Chest Other: There is some very subtle chest wall tenderness at the left upper chest in the midclavicular line. No crepitus or subcutaneous emphysema. Resp Effort & Inspection: normal respiratory effort Auscultation: clear to auscultation bilaterally Cardio Rate: regular rate Rhythm: regular rhythm Heart sounds: S1 normal heart sound present and S2 normal heart sound present GI Other: Abdomen is flat and soft and nontender.. Skin Other: Skin is dry and unremarkable. Neuro Other: The patient is awake, alert, pleasant, cooperative. Mental status is normal. Neck is supple. Speech is clear, face is symmetrical, eye movements intact, moves all 4 extremities normally and appropriately. Grossly neurologically intact. Extrem Other: No peripheral edema., no calf swelling or tenderness. No asymmetry. Course Course Course Narrative: This is a rapid medical exam: Additional HPI, ROS, PE not included below will be deferred to primary provider. Patient is a 58-year-old male with history of HTN, cirrhosis, GERD presenting to the ED with complaint of left anterior chest pain which started approximately 45 minutes prior to arrival. Was sorting through clothing, nothing exertional when pain began. Also complains of headache and feeling sweaty. Has been trying to quit smoking for the past week. Plan: EKG, labs, CXR Medications Administered Discontinued Medications Generic Name Dose Route Start Last Admin Trade Name Freq PRN Reason Stop Dose Admin Acetaminophen 975 mg 06/02/23 14:55 06/02/23 15:00 Acetaminophen 325 Mg Tablet PO 06/02/23 14:56 975 mg ONCE ONE Administration Medical Decision Making Medical Decision Making [facility] Narrative: The patient is a 58-year-old male who presents with a first-time episode of left-sided chest pain that he describes as being very intense and which made him think he was having a heart attack. While having the chest pain he also experienced a headache that he says is the worst headache of his life. Both of his symptoms improved spontaneously. His EKG is unremarkable. He has risk factors for coronary disease which include hypertension and smoking. His EKG is unremarkable. His troponins are normal. A head CT is negative. He is reassured. He should continue his regular medications and follow up with his regular doctor. Return if worse. Lab Data 06/02/23 13:50 06/02/23 13:50 Labs: Lab Results 06/02/23 06/02/23 Range/Units 13:50 16:20 WBC 6.6 (4.8-10.8) X10*3/uL RBC 3.96 L (4.60-5.80) X10*6/uL Hgb 11.1 L (14.0-18.0) g/dl Hct 33.4 L (42.0-52.0) % MCV 84.3 (80.0-98.0) fL MCH 28.0 (27.0-33.0) pg MCHC 33.2 (31.0-36.0) g/dl RDW 13.9 (11.0-16.0) % Plt Count 154 L (160-400) X10*3/uL MPV 10.8 (9.4-12.4) fL Immature Gran % (Auto) 0.5 H (0.0-0.4) % Neut % (Auto) 70.1 (45-73) % Lymph % (Auto) 22.4 (20-40) % [place] % (Auto) 6.5 (2-11) % Eos % (Auto) 0.3 (0-4) % Baso % (Auto) 0.2 (0-2) % Lymph # (Auto) 1.5 (1.2-4.9) X10*3/uL [place] # (Auto) 0.4 (0.1-1.2) X10*3/uL Eos # (Auto) 0.0 (0.0-0.4) X10*3/uL Baso # (Auto) 0.0 (0.0-0.2) X10*3/uL Abs Immat Gran (auto) 0.03 (0.00-0.03) X10*3/uL Absolute Neuts (auto) 4.7 (2.0-8.3) x10*3/uL Absolute Nucleated RBC 0.000 (0.0-0.012) X10*3/uL Nucleated RBC % (auto) 0.0 (0.0-0.2) /100WBC PT 13.0 (11.1-13.3) SEC INR 1.1 (0.9-1.1) Sodium 140 (135-145) mmol/L Potassium 3.9 (3.3-5.1) mmol/L Chloride 107 (96-108) mmol/L Carbon Dioxide 27 (22-29) mmol/L Anion Gap 10 L (12-20) BUN 39 H (9-16) mg/dL Creatinine 1.20 (0.5-1.4) mg/dL Estim Creat Clear Calc 65.4 Estimated GFR > 60 Random Glucose 86 (60-115) mg/dL Calcium 10.1 (8.4-10.2) mg/dL Total Bilirubin 0.7 (0.0-1.0) mg/dL AST 31 (5-37) U/L ALT 26 (0-40) U/L Alkaline Phosphatase 77 (39-117) U/L Troponin I High Sens 2.8 3.9 (<3.5-35.0) ng/L Total Protein 7.7 (6.5-8.0) g/dL Albumin 4.6 (3.5-5.0) g/dL Lipase 19 (8-78) U/L Independent Interpretation I performed an independent interpretation of an: EKG Interpretation: EKG at 13:20 shows normal sinus rhythm at 70 beats per minute and is a normal EKG. No change from previous. Discharge Plan Discharge Clinical Impression: Chest pain, Headache Patient Disposition: Home, Self-Care Additional Instructions: Your testing in the emergency room today is very reassuring. I think it is unlikely that your chest pain or your headache represent any acutely dangerous process. Please continue your regular medications. Please plan on following up with your regular doctor's office for a second opinion in the next couple of weeks. Return to the emergency room if worse. Prescriptions: No Action bisacodyl [Dulcolax (bisacodyl)] 5 mg tablet,delayed release (DR/EC) 10 mg PO ONCE 1 Days Qty: 2 0RF Rx Instructions: Take 2 tablets at 12:00pm the day before your procedure, bowel prep ibuprofen 800 mg tablet 800 mg PO Q8H PRN (Reason: pain) Qty: 14 0RF naproxen 500 mg tablet 500 mg PO BID 7 Days Qty: 14 0RF calcium-vitamin D3-vitamin K [Citracal-D3 Soft Chew] 500 mg-1,000 unit-40 mcg tablet,chewable 1 tab PO ONCE 30 Days Qty: 30 4RF hydralazine 10 mg tablet 10 mg PO BID lisinopril 40 mg tablet 40 mg PO DAILY amlodipine-benazepril 2.5-10 mg capsule 1 cap PO DAILY omeprazole 40 mg capsule,delayed release(DR/EC) 40 mg PO DAILY hydroxyzine pamoate 50 mg capsule 50 mg PO BID PRN (Reason: anxiety) Qty: 30 0RF mirtazapine 7.5 mg tablet 7.5 mg PO BEDTIME Qty: 30 0RF Referrals: [facility] [Provider Group] (Chest pain, headache)
[2023-06-02 13:33] VITALS: BP 119/66; PULSE 75; RESP 18; TEMP 36.6; O2SAT 97; BMI 23.6
[2023-06-02 13:54] LABS: MANUAL DIFF FLAG NO
[2023-06-02 14:00] LABS: Basophils Percent Auto 0.2 % (0-2); Eosinophils Percent Auto 0.3 % (0-4); Hematocrit 33.4 % (42.0-52.0); Hemoglobin 11.1 g/dl (14.0-18.0); Imm Gran Abs Auto 0.03 X10*3/uL (0.00-0.03); Imm Gran Pct Auto 0.5 % (0.0-0.4); Lymphocytes Absolute Auto 1.5 X10*3/uL (1.2-4.9); Lymphocytes Percent Auto 22.4 % (20-40); Mean Corpuscular HGB Conc 33.2 g/dl (31.0-36.0); Mean Corpuscular Volume 84.3 fL (80.0-98.0); Mean Platelet Volume 10.8 fL (9.4-12.4); Monocytes Absolute Auto 0.4 X10*3/uL (0.1-1.2); Monocytes Percent Auto 6.5 % (2-11); Neutrophils Absolute Auto 4.7 x10*3/uL (2.0-8.3); Neutrophils Percent Auto 70.1 % (45-73); Platelet Count 154 X10*3/uL (160-400); Red Blood Count 3.96 X10*6/uL (4.60-5.80); Red Cell Distribution Width 13.9 % (11.0-16.0); White Blood Count 6.6 X10*3/uL (4.8-10.8)
[2023-06-02 14:07] LABS: INTERNATIONAL NORM RATIO 1.1 (0.9-1.1)
[2023-06-02 14:13] LABS: Alanine Aminotransferase 26 U/L (0-40); Albumin Level 4.6 g/dL (3.5-5.0); Alkaline Phosphatase 77 U/L (39-117); Anion Gap 10 (12-20); Aspartate Amino Transferase 31 U/L (5-37); Bilirubin Total 0.7 mg/dL (0.0-1.0); Blood Urea Nitrogen 39 mg/dL (9-16); Calcium 10.1 mg/dL (8.4-10.2); Carbon Dioxide 27 mmol/L (22-29); Chloride 107 mmol/L (96-108); Creatinine Clr Calc Pharmacy 65.4; Estimated Glomerular Filt Rate > 60; Glucose Random 86 mg/dL (60-115); Lipase 19 U/L (8-78); Potassium 3.9 mmol/L (3.3-5.1); Sodium 140 mmol/L (135-145); Total Protein 7.7 g/dL (6.5-8.0)
[2023-06-02 14:18] VITALS: BP 136/64; PULSE 73; RESP 12; TEMP 36.8; O2SAT 98
[2023-06-02 14:21] LABS: Troponin-I High Sensitivity 2.8 ng/L (<3.5-35.0)
[2023-06-02] MEDS: Acetaminophen 325 MG TABLET 975 MG PO (15:00)
[2023-06-02 16:26] VITALS: BP 110/53; PULSE 68; RESP 12; O2SAT 95
[2023-06-02 16:49] LABS: Troponin-I High Sensitivity 3.9 ng/L (<3.5-35.0)
== END 2023-06-02 17:57 | disposition home or self-care (01) ==
PROVIDERS: Registered Nurse Emergency; Emergency Provider Emergency Medicine
DX: R07.9 Chest pain, unspecified (principal); R51.9 Headache, unspecified; I10 Essential (primary) hypertension; F17.210 Nicotine dependence, cigarettes, uncomplicated; Z79.899 Other long term (current) drug therapy
CPT/HCPCS: 36415; 70450; 71046; 80053; 83690; 84484; 85025; 85610; 93005; 99284; 99285

== ENCOUNTER → 2023-06-02 13:18 | Outpatient (BNV) | payer MEDICAID, SELFPAY | PROVIDERS: Emergency Provider Emergency Medicine; Visit Provider Internal Medicine | DX: R07.9 Chest pain, unspecified (principal) | CPT/HCPCS: 93010 ==

== ENCOUNTER 2023-09-03 23:41 | Emergency (ER) | payer MEDICAID, SELFPAY ==
--- NOTE | ~2023-09-03 | XR_ITS ---
EXAMINATION: XR ELBOW, LEFT CLINICAL INFORMATION: Pain, swelling, question foreign body COMPARISON: None available. TECHNIQUE: AP, lateral, and oblique views of the left elbow. FINDINGS: Osseous alignment is anatomic. No acute fracture is seen. There is soft tissue swelling along the dorsal/ulnar aspect of the elbow. No radiopaque foreign body is seen. No significant effusion. XR/XR elbow LT min 3V IMPRESSION: Soft tissue swelling along the dorsal/ulnar aspect of the elbow. No radiopaque foreign body identified.
[2023-09-03 23:59] VITALS: BP 133/82; PULSE 91; RESP 16; TEMP 37.1; O2SAT 97; BMI 21.4
--- OUTSIDE RECORDS SUMMARY | 2023-09-04 01:05 | XMS_ITS | Continuity of Care Document ---
Author Organization [facility] ter Address [address] [place] [address]- Care Team Providers Care Bar Pilot Name Role Phone Richard WEAVER, Abdulaziz Yuen Primary Care Physician [place] [facility] [place] - 10/15/[address] [id number]- Discharge Disposition: A-D/C Walkout Attending Physician: Not on Staff, Attending MD Admitting Physician: Not on Staff, Admitting MD Referring Physician: Not on Staff, Referring MD Allergies, Adverse Reactions, Alerts No Known Allergies Medications Vicodin 5/500 Tablet By Mouth, Every 4 hours, PRN Pain , Severe, 0 Refills, Maintenance Start Date: 12/25/10 Status: Ordered Results Radiology Reports * Exam Date Time Procedure Performing Provider Status 10/14/22 7:02 PM Chest 2 Views Frontal and Lat Sarah Amador (Verified) Notes: (Chest 2 Views Frontal and Lat) Reason For Exam: Chest Pain;Other: RESULT: Chest 2 Views Frontal and Lat Chest 2 Views Frontal and Lat Hx of Present Illness: Patient reports fell against stairs 2 days ago. Patient does not know how fall occurred. Has pain in ribs chest. Also, tingling in left hand. Denies injury to head neck. 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 FINDINGS: LINES AND TUBES: None. LUNGS AND PLEURA: Clear lungs. Normal pulmonary vascularity. No pleural effusion. No pneumothorax. HEART, MEDIASTINUM AND NATAN: Heart is normal in size. Normal mediastinal and hilar contour. BONES AND SOFT TISSUES: No acute abnormality. IMPRESSION: No acute abnormality. WSN: [id number] Ordering Physician: Flaco Dumas Dictated By: Jonathon Santiago MD Dictated Date/Time: 10/14/22 7:09 pm Reviewed By: Jonathon Santiago MD Signed By: Jonathon Santiago MD Signed Date/Time: 10/14/22 7:09 pm Transcribed By: DIONTE Transcribed Date/Time: 10/14/22 7:08 pm Vital Signs Most recent to oldest [Reference Range]: 1 2 3 Height 177 cm (10/14/22 6:35 PM) 177 cm (10/14/22 5:48 PM) Weight 73 kg (10/14/22 6:35 PM) 73 kg (10/14/22 5:48 PM) Oxygen Saturation [94-100 %] 99 % (10/14/22 7:46 PM) 100 % (10/14/22 5:48 PM) 97 % (10/14/22 5:45 PM) Pulse Rate [55-90 bpm] 90 bpm (10/14/22 7:46 PM) 87 bpm (10/14/22 5:48 PM) 50 bpm *L* (10/14/22 5:45 PM) Body Mass Index [18.5-24.99 kg/m2] 23.3 kg/m2 (10/14/22 5:48 PM) Blood Pressure [90-138/55-84 mm Hg] 136/93mm Hg (10/14/22 7:46 PM) 144/77mm Hg *H* (10/14/22 5:48 PM) Respiratory Rate [16-30 br/min] 18 br/min (10/14/22 5:48 PM) 16 br/min (10/14/22 5:45 PM) Temperature [96.8-100.4 DegF] 99.0 DegF (10/14/22 7:46 PM) 99.1 DegF (10/14/22 5:48 PM) Mode of Delivery (Oxygen) Room air (10/14/22 7:46 PM) Room air (10/14/22 5:48 PM) Room air (10/14/22 5:45 PM) Blood pressure sites Arm, right (10/14/22 7:46 PM) Arm, right (10/14/22 5:48 PM) Temperature Route Oral (10/14/22 7:46 PM) Oral (10/14/22 5:48 PM) Dry Weight 73 kg (7/12/23 6:35 PM) 73 kg (10/14/22 5:48 PM) Weight Obtained Via Patient/family state d (10/14/22 5:48 PM) Dry Weight Obtained Via Patient/family s tated (10/14/22 5:48 PM) EKG study * Event Display: EKG Authored Date: [id number] Patient Care team information Care Team Personnel Name: Abdulaziz Ramos NP Position: S Outreach Member Role: PCP Address: Address: [address] [place] [address]- Care Team Related Persons Name: MAX MCCAIN Address: home [address] [address]
[2023-09-04 02:00] VITALS: BP 121/66; PULSE 70; RESP 16; TEMP 36.8; O2SAT 97
--- NOTE | 2023-09-04 03:25 | ED_ITS ---
HPI - Extremity Problem General Chief complaint: Extremity Injury, Upper Stated complaint: left arm foreign substance inbeded Time Seen by Provider: 09/04/23 01:19 History of Present Illness HPI Narrative: Patient is a 58-year-old male presented today with having pain to his left proximal forearm. There is an area redness swelling. Denies any systemic complaints. Related Data Home Medications ?Medication ?Instructions ?Recorded ?Confirmed amlodipine 2.5 mg-benazepril 10 mg 1 cap PO DAILY 01/25/20 10/17/20 capsule hydralazine 10 mg tablet 10 mg PO BID 01/25/20 05/31/23 lisinopril 40 mg tablet 40 mg PO DAILY 01/25/20 05/31/23 omeprazole 40 mg capsule,delayed 40 mg PO DAILY 01/25/20 05/31/23 release Previous Rx's ?Medication ?Instructions ?Recorded bisacodyl 5 mg tablet,delayed 10 mg (2 x 5 mg) PO ONCE Bowel 02/16/20 release (Dulcolax (bisacodyl)) Preparation 1 day #2 tabs calcium-vitamin D3-vitamin K 500 1 tab PO ONCE 30 days #30 tabs 04/25/20 mg-1,000 unit-40 mcg chewable tablet (Citracal-D3 Soft Chew) ibuprofen 800 mg tablet 800 mg PO Q8H PRN pain #14 tabs 12/08/20 naproxen 500 mg tablet 500 mg PO BID 7 days #14 tabs 09/15/22 hydroxyzine pamoate 50 mg capsule 50 mg PO BID PRN anxiety #30 caps 05/31/23 mirtazapine 7.5 mg tablet 7.5 mg PO BEDTIME #30 tabs 06/28/23 doxycycline hyclate 100 mg capsule 100 mg PO BID cough 7 days #14 caps 09/04/23 Allergies Allergy/AdvReac Type Severity Reaction Status Date / Time latex [LATEX] Allergy Mild RASH Verified 09/04/23 00:02 Review of Systems Review of Systems: No fever no chills no systemic complaints Yes all other systems are reviewed and are negative [facility] Past Medical History Attestation statement: The following information was validated with the patient. Medical History Rotator cuff dysfunction Cirrhosis of liver without ascites Anemia Periumbilical abdominal pain Chronic constipation History of Helicobacter pylori infection Hypertension Depression History of drug abuse GERD (gastroesophageal reflux disease) Hepatitis C virus infection resolved after antiviral drug therapy Surgical History Hx of endoscopy History of colonoscopy H/O removal of cyst (~06/15/13) S/P excision of lipoma (~06/2014) H/O wisdom tooth extraction History of cholecystectomy (~2010) H/O inguinal hernia repair (~1989) Hx of tonsillectomy Family History Family History Father History of high blood pressure Mother History of depression Social History Social History Household Members Other:: SISTER Alcohol intake: former Cigarettes Per Day: 5 Substance Use Type: Former Substance User Advance Directives: No Advance Directives Information Provided: Yes Do you have a plan to hurt others: No Plan Current occupational status: disabled Current occupation: right handed Physical Exam Vital Signs: Vital Signs: Last Vital Signs Temp 98.2 F 09/04/23 02:00 Pulse 70 09/04/23 02:00 Resp 16 09/04/23 02:00 BP 121/66 09/04/23 02:00 Pulse Ox 97 09/04/23 02:00 O2 Del Method Room Air 09/04/23 02:00 BMI result Body Mass Index 21.4 Appearance: Alert. Oriented X3. No acute distress. Eyes: Pupils equal, round and reactive to light. ENT: Pharynx normal. Neck: Normal inspection. Neck supple. No lymph nodes noted. No crepitus CVS: Normal heart rate and rhythm. Pulses normal. Normal S1 and S2 Respiratory: No respiratory distress. Breath sounds normal. No Wheezing. No rales Abdomen: Soft and nontender. No rigidity. No distention. good BS x4 Skin: Positive abscess noted over the proximal left forearm. Approximately 3 cm x 3 cm in size fluctuant with a red base. Extremities: No lower extremity edema. Neurovascular intact to all extremities. No Lacerations. Range of motion at the elbow intact. Distal pulses intact sen sation intact Neuro: Oriented X 3. No motor deficit. No sensory deficit. Moving all extermities. No slurred speech Medical Decision Making Medical Decision Making MDM Narrative: Patient well appearing no acute distress. Positive abscess to the forearm. Explained to patient the need to undergo an incision and drainage. Patient refused to wait for I&D. Left against medical advice. Understood risks including infection loss of current lifestyle. Patient left against medical advice we did what we could. Explained to patient the need to come back. Antibiotic was prescribed as a next best option. Explained to patient he can come back at any time. Differential Diagnosis Differential Diagnoses: The differential diagnosis associated with the presentation includes Cellulitis, abscess, joint infection Admission/Observation Consideration of admission/observation: Escalation of care including admission/observation considered Lab Data [facility] Lab Attestation statement: I reviewed the patient's lab results. Independent Interpretation I performed an independent interpretation of an: Plain X-Ray (X-ray of the elbow was grossly negative) Radiology Impression Discussion of test interpretation with radiology: I have reviewed the radiologist's reading. Independent Historian Clinical information obtained from an independent historian. History obtained from or confirmed by: Spouse Chronic Conditions Patient?s care impacted by: Hypertension Discharge Plan Discharge Clinical Impression: Abscess Patient Disposition: Left Against Medical Advice Instructions: Abscess (ED) Additional Instructions: You left against medical advice. An abscess can not be fully treated with just antibiotics. Please come back if he change his mind. An antibiotic was prescribed you nevertheless. Prescriptions: New doxycycline hyclate 100 mg capsule 100 mg PO BID 7 Days Qty: 14 0RF No Action bisacodyl [Dulcolax (bisacodyl)] 5 mg tablet,delayed release (DR/EC) 10 mg PO ONCE 1 Days Qty: 2 0RF Rx Instructions: Take 2 tablets at 12:00pm the day before your procedure, bowel prep mirtazapine 7.5 mg tablet 7.5 mg PO BEDTIME Qty: 30 0RF ibuprofen 800 mg tablet 800 mg PO Q8H PRN (Reason: pain) Qty: 14 0RF naproxen 500 mg tablet 500 mg PO BID 7 Days Qty: 14 0RF calcium-vitamin D3-vitamin K [Citracal-D3 Soft Chew] 500 mg-1,000 unit-40 mcg tablet,chewable 1 tab PO ONCE 30 Days Qty: 30 4RF hydralazine 10 mg tablet 10 mg PO BID lisinopril 40 mg tablet 40 mg PO DAILY amlodipine-benazepril 2.5-10 mg capsule 1 cap PO DAILY omeprazole 40 mg capsule,delayed release(DR/EC) 40 mg PO DAILY hydroxyzine pamoate 50 mg capsule 50 mg PO BID PRN (Reason: anxiety) Qty: 30 0RF Referrals: [facility] [Primary Care Provider] - (If you change your mind come back immediately) Stand Alone Forms: Against Medical Advice Print Language: Vietnamese
[2023-09-04] MEDS: Doxycycline Monohydrate 100 MG CAPSULE PO (03:30)
--- NOTE | 2023-09-04 03:34 | PC.NURSE ---
pt out into the hallway to ask this RN how much longer he has to wait. explained that there is only one provider available at this time and it is difficult to give a time frame on when he would be in. this RN notified MD of the patient concern in regards to time. pt then became verbally aggressive w/ this RN. this is ridiculous. all i want is antibiotics. all this time for nothing. explained the plan is to perform an I/D. pt is refusing I/D at this time. states I only want antibiotics. MD overheard the conversation, at bedside talking w/ patient. patient continues to refuse I/D. requesting to leave w/ antibiotics. MD aware. this RN gave PO abx and AMA paperwork. pt remains to be verbally aggressive w/ staff cursing and yelling at this RN in regards to wait time. pt ambulated out of the ER.
--- NOTE | 2023-09-04 04:37 | PC.NURSE ---
at bedside for wound lancing/cleaning.
[2023-09-04] MEDS: HYDROcodone Bit/Acetam 5/325 TABLET 1 TAB PO (04:58)
[2023-09-04 05:02] VITALS: BP 0/0; PULSE 0; RESP 20; TEMP -17.7; TEMP 0
--- NOTE | 2023-09-04 05:02 | PC.NURSE ---
Pt medicated per JUN. Provided with DC paperwork.
== END 2023-09-04 05:05 | disposition home or self-care (01) ==
PROVIDERS: Emergency Provider Emergency Medicine Emergency Medical Services
DX: L02.414 Cutaneous abscess of left upper limb (principal); M79.632 Pain in left forearm; I10 Essential (primary) hypertension; Z87.891 Personal history of nicotine dependence; Z79.899 Other long term (current) drug therapy
CPT/HCPCS: 10060; 73080; 87070; 87077; 87186; 87205; 99284

== ENCOUNTER 2023-09-06 17:59 | Emergency (ER) | payer MEDICAID, SELFPAY ==
[2023-09-06 18:29] VITALS: BP 124/70; PULSE 80; RESP 16; TEMP 36.6; O2SAT 97; BMI 23.6
--- NOTE | 2023-09-06 18:38 | ED_ITS ---
HPI - General Adult General Chief complaint: Wound/Laceration Stated complaint: arm wound, seen here the other day Time Seen by Provider: 09/06/23 18:38 Source: patient, RN notes reviewed and old records reviewed Mode of arrival: ambulatory Limitations: no limitations History of Present Illness ED Provider: Brent HPI narrative: 58-year-old male presents for evaluation of a wound recheck. Patient was seen here 2 days ago for an abscess to his left arm. He had an abscess that was drained with incision He was placed on doxycycline. He reports area feels much better and the swelling has improved He has minimal intermittent pain. Denies any fevers No other complaints or concerns Related Data Home Medications ?Medication ?Instructions ?Recorded ?Confirmed amlodipine 2.5 mg-benazepril 10 mg 1 cap PO DAILY 01/25/20 10/17/20 capsule hydralazine 10 mg tablet 10 mg PO BID 01/25/20 05/31/23 lisinopril 40 mg tablet 40 mg PO DAILY 01/25/20 05/31/23 omeprazole 40 mg capsule,delayed 40 mg PO DAILY 01/25/20 05/31/23 release Previous Rx's ?Medication ?Instructions ?Recorded bisacodyl 5 mg tablet,delayed 10 mg (2 x 5 mg) PO ONCE Bowel 02/16/20 release (Dulcolax (bisacodyl)) Preparation 1 day #2 tabs calcium-vitamin D3-vitamin K 500 1 tab PO ONCE 30 days #30 tabs 04/25/20 mg-1,000 unit-40 mcg chewable tablet (Citracal-D3 Soft Chew) ibuprofen 800 mg tablet 800 mg PO Q8H PRN pain #14 tabs 12/08/20 naproxen 500 mg tablet 500 mg PO BID 7 days #14 tabs 09/15/22 hydroxyzine pamoate 50 mg capsule 50 mg PO BID PRN anxiety #30 caps 05/31/23 mirtazapine 7.5 mg tablet 7.5 mg PO BEDTIME #30 tabs 06/28/23 doxycycline hyclate 100 mg capsule 100 mg PO BID cough 7 days #14 caps 09/04/23 Allergies Allergy/AdvReac Type Severity Reaction Status Date / Time latex [LATEX] Allergy Mild RASH Verified 09/06/23 18:31 Review of Systems Constitutional: Constitutional: Denies body ache(s), Denies chills and Denies fever(s) Cardiovascular: Cardiovascular: Denies chest pain Musculoskeletal: Musculoskeletal: Denies arthralgias and Denies joint swelling Integumentary/Breasts: Skin/Breast: Reports erythema and Reports wounds PMFSH Past Medical History Medical History Rotator cuff dysfunction Cirrhosis of liver without ascites Anemia Periumbilical abdominal pain Chronic constipation History of Helicobacter pylori infection Hypertension Depression History of drug abuse GERD (gastroesophageal reflux disease) Hepatitis C virus infection resolved after antiviral drug therapy Surgical History Hx of endoscopy History of colonoscopy H/O removal of cyst (~06/15/13) S/P excision of lipoma (~06/2014) H/O wisdom tooth extraction History of cholecystectomy (~2010) H/O inguinal hernia repair (~1989) Hx of tonsillectomy Family History Family History Father History of high blood pressure Mother History of depression Social History Social History Household Members Other:: SISTER Alcohol intake: former Cigarettes Per Day: 5 Substance Use Type: Former Substance User Advance Directives: No Advance Directives Information Provided: No Current occupational status: disabled Current occupation: right handed Physical Exam ED Vital Signs: Vital Signs - 24 hr 09/06/23 18:29 Temperature 97.8 F Pulse Rate 80 Respiratory Rate 16 Blood Pressure 124/70 Pulse Oximetry 97 Oxygen Delivery Method Room Air BMI result Body Mass Index 23.6 Const General: healthy appearing, comfortable, no acute distress, alert and awake Nutritional Appearance: well nourished Orientation/consciousness: patient oriented x3 HENMT Head: Yes normocephalic and Yes atraumatic Eyes Eyelids: Yes eyelids normal Conjunctivae: conjunctivae normal Sclerae: sclerae normal Corneas: corneas normal Pupils: Equal, round and reactive pupils present EOM: EOMs intact bilaterally Neck Neck: Yes full ROM Resp Effort & Inspection: normal respiratory effort, able to speak in complete sentences and not labored Skin Other: There is an area of previous incision and drainage to the left lateral elbow. There is minimal surrounding erythema/granulomatous tissue and scant drainage. General skin exam: elasticity normal Neuro General: patient oriented x3 Cranial nerves: Yes Equal, round and reactive pupils present and Yes Bilaterally intact EOM present Cognition (Neuro): normal cognition Extrem Other: Patient has good range of motion with flexion and extension of the left elbow. Medical Decision Making Medical Decision Making MDM Narrative: 58-year-old male presents for evaluation of a wound recheck. He had incision drainage 2 days ago in this ER. I reviewed that note. The patient's dressing was removed, his incision appears to be healing well. There is scant drainage. Patient will continue with doxycycline and warm compresses. No indication for further emergent workup at this time Differential Diagnosis Differential Diagnoses: The differential diagnosis associated with the presentation includes Abscess Cellulitis Wound check Septic joint less likely Discharge Plan Discharge Clinical Impression: Abscess re-check Patient Disposition: Home, Self-Care Instructions: Warm Compress or Soak (ED) Additional Instructions: Your wound appears to be healing well. Continue warm compresses and the doxycycline as prescribed. Follow-up with your primary doctor, return for new or worsening symptoms Prescriptions: No Action bisacodyl [Dulcolax (bisacodyl)] 5 mg tablet,delayed release (DR/EC) 10 mg PO ONCE 1 Days Qty: 2 0RF Rx Instructions: Take 2 tablets at 12:00pm the day before your procedure, bowel prep mirtazapine 7.5 mg tablet 7.5 mg PO BEDTIME Qty: 30 0RF ibuprofen 800 mg tablet 800 mg PO Q8H PRN (Reason: pain) Qty: 14 0RF naproxen 500 mg tablet 500 mg PO BID 7 Days Qty: 14 0RF doxycycline hyclate 100 mg capsule 100 mg PO BID 7 Days Qty: 14 0RF calcium-vitamin D3-vitamin K [Citracal-D3 Soft Chew] 500 mg-1,000 unit-40 mcg tablet,chewable 1 tab PO ONCE 30 Days Qty: 30 4RF hydralazine 10 mg tablet 10 mg PO BID lisinopril 40 mg tablet 40 mg PO DAILY amlodipine-benazepril 2.5-10 mg capsule 1 cap PO DAILY omeprazole 40 mg capsule,delayed release(DR/EC) 40 mg PO DAILY hydroxyzine pamoate 50 mg capsule 50 mg PO BID PRN (Reason: anxiety) Qty: 30 0RF Discharge Date/Time: 09/06/23 19:01 Print Language: Swedish
--- NOTE | 2023-09-06 18:40 | PC.NURSE ---
dsd placed on forearm
--- NOTE | 2023-09-06 18:41 | PC.NURSE ---
seen and discharged from triage
== END 2023-09-06 19:01 | disposition home or self-care (01) ==
PROVIDERS: Emergency Provider Internal Medicine
DX: L02.414 Cutaneous abscess of left upper limb (principal); A49.02 Methicillin resistant Staphylococcus aureus infection, unspecified site; I10 Essential (primary) hypertension; F17.210 Nicotine dependence, cigarettes, uncomplicated; F11.90 Opioid use, unspecified, uncomplicated; Z86.19 Personal history of other infectious and parasitic diseases
CPT/HCPCS: 99281; 99282

== ENCOUNTER 2023-09-30 09:01 | Emergency (ER) | payer MEDICAID, SELFPAY ==
--- NOTE | ~2023-09-30 | XR_ITS ---
EXAMINATION: XR ELBOW, LEFT CLINICAL INFORMATION: Abscess with elbow swelling COMPARISON: None available. TECHNIQUE: AP, lateral, and oblique views of the left elbow. FINDINGS: The bones and soft tissues are normal aside from some soft tissue prominence seen in the very proximal forearm. No fracture or joint effusion. Alignment is anatomic. Joint spaces are maintained. XR/XR elbow LT 2V IMPRESSION: Soft tissue prominence in the proximal forearm. No acute osseous findings.
[2023-09-30 09:13] VITALS: BP 109/72; PULSE 98; RESP 19; TEMP 37; O2SAT 98; BMI 21.4
--- NOTE | 2023-09-30 10:54 | ED_ITS ---
HPI - General Adult General Chief complaint: Wound/Laceration Stated complaint: wound check Time Seen by Provider: 09/30/23 10:54 Source: patient Mode of arrival: ambulatory Limitations: no limitations History of Present Illness ED Provider: frank NORIEGA narrative: Patient is a 58-year-old male with history of opioid use disorder, hypertension, cirrhosis, anemia presenting to the emergency department with complaint of new abscess to left elbow. Patient was seen and treated for an abscess to his elbow at the beginning of September. He states that the initial area has healed but now has a new area of swelling with purulent discharge. Denies any decreased range of motion at elbow. Denies any fevers. Denies any weakness, numbness or tingling to left arm. MD complaint: Abscess Onset (ago): day(s) Location: left and upper extremity Severity: mild Quality: aching Associated symptoms: denies other symptoms Treatments prior to arrival: none Related Data Home Medications ?Medication ?Instructions ?Recorded ?Confirmed amlodipine 2.5 mg-benazepril 10 mg 1 cap PO DAILY 01/25/20 10/17/20 capsule hydralazine 10 mg tablet 10 mg PO BID 01/25/20 05/31/23 lisinopril 40 mg tablet 40 mg PO DAILY 01/25/20 05/31/23 omeprazole 40 mg capsule,delayed 40 mg PO DAILY 01/25/20 05/31/23 release Previous Rx's ?Medication ?Instructions ?Recorded bisacodyl 5 mg tablet,delayed 10 mg (2 x 5 mg) PO ONCE Bowel 02/16/20 release (Dulcolax (bisacodyl)) Preparation 1 day #2 tabs calcium-vitamin D3-vitamin K 500 1 tab PO ONCE 30 days #30 tabs 04/25/20 mg-1,000 unit-40 mcg chewable tablet (Citracal-D3 Soft Chew) ibuprofen 800 mg tablet 800 mg PO Q8H PRN pain #14 tabs 12/08/20 naproxen 500 mg tablet 500 mg PO BID 7 days #14 tabs 09/15/22 hydroxyzine pamoate 50 mg capsule 50 mg PO BID PRN anxiety #30 caps 05/31/23 mirtazapine 7.5 mg tablet 7.5 mg PO BEDTIME #30 tabs 06/28/23 doxycycline hyclate 100 mg capsule 100 mg PO BID cough 7 days #14 caps 09/04/23 clindamycin HCl 150 mg capsule 450 mg (3 x 150 mg) PO TID 7 days 09/30/23 #63 caps Allergies Allergy/AdvReac Type Severity Reaction Status Date / Time latex [LATEX] Allergy Mild RASH Verified 09/30/23 09:15 Review of Systems 2 Review of Systems: As per HPI. Yes all other systems are reviewed and are negative Constitutional: Constitutional: Reports as per HPI PMFSH Past Medical History Medical History Rotator cuff dysfunction Cirrhosis of liver without ascites Anemia Periumbilical abdominal pain Chronic constipation History of Helicobacter pylori infection Hypertension Depression History of drug abuse GERD (gastroesophageal reflux disease) Hepatitis C virus infection resolved after antiviral drug therapy Surgical History Hx of endoscopy History of colonoscopy H/O removal of cyst (~06/15/13) S/P excision of lipoma (~06/2014) H/O wisdom tooth extraction History of cholecystectomy (~2010) H/O inguinal hernia repair (~1989) Hx of tonsillectomy Family History Family History Father History of high blood pressure Mother History of depression Social History Social History Household Members Other:: SISTER Alcohol intake: former Cigarettes Per Day: 5 Substance Use Type: Former Substance User Advance Directives: No Advance Directives Information Provided: Yes Current occupational status: disabled Current occupation: right handed Physical Exam ED Vital Signs: Vital Signs - 24 hr 09/30/23 09:13 Temperature 98.6 F Pulse Rate 98 Respiratory Rate 19 Blood Pressure 109/72 Pulse Oximetry 98 Oxygen Delivery Method Room Air BMI result Body Mass Index 21.4 Vital signs have been reviewed and appear to be correct. Blood pressure normal. Heart rate normal. Respiratory rate normal. Temperature normal. Oxygen saturation normal. Const General: cooperative, healthy appearing and no acute distress Orientation/consciousness: oriented to person, oriented to place, oriented to time and patient oriented x3 Limitations: no limitations HENMT Head: Yes normocephalic and Yes atraumatic Ears: external ears normal General nose exam: Normal external nose present Face and sinus: Yes face symmetric Mouth: oropharynx normal and moist mucous membranes Throat: Yes uvula midline Eyes Pupils: Equal, round and reactive pupils present Neck Neck: Yes normal visual inspection and Yes supple Resp Effort & Inspection: normal respiratory effort and able to speak in complete sentences Auscultation: clear to auscultation bilaterally Cardio Rate: regular rate Rhythm: regular rhythm Heart sounds: S1 normal heart sound present and S2 normal heart sound present GI Palpation (GI): Soft to palpation and nontender Auscultation: normoactive bowel sounds General: Yes no CVA tenderness Back/Spine/Pelvis Back: no CVA tenderness Skin General skin exam: elasticity normal and turgor normal Neuro General: oriented to person, oriented to place, oriented to time, patient oriented x3, moves all extremities, no focal motor deficits and CN's II-XI intact bilaterally Cranial nerves: Yes Equal, round and reactive pupils present Cognition (Neuro): normal cognition Extrem General: Yes full ROM, Yes no pedal edema and Yes no calf tenderness Left upper extremity: elbow/forearm Details: tenderness Location: of the proximal forearm, normal ROM, warmth (in area of abscess), distal pulses intact and other (erythematous pustule) Elbow/forearm/wrist images: 2 1. pustule with surrounding erythema, scar from prior abscess distal to current abscess Psych Mental Status: mental status grossly normal Affect: normal affect Thought process: Normal thought process present Medical Decision Making Medical Decision Making MDM Narrative: Patient is a 58-year-old male with history of opioid use disorder, hypertension, cirrhosis, anemia presenting to the emergency department with complaint of new abscess to left elbow. On exam patient is awake, A+Ox3, VS WNL, afebrile, normal neurological exam without focal deficits, physical exam findings as above. Given reported symptoms and physical exam findings, initial differential includes abscess, cellulitis. Unlikely septic joint as patient has full ROM. Labs notable for no leukocytosis, normal ESR and CRP. X-ray notable for no evidence of osteomyelitis. My interpretation is in agreement with the radiologist's interpretation. Review of EMR shows that patient's wound culture from prior visit was positive for MRSA resistant to tetracycline and that patient was unable to be reached at callback number so he was only treated with doxycycline. Will treat patient with clindamycin. Return precautions discussed. Patient verbalized understanding of and agreement with plan. Differential Diagnosis Differential Diagnoses: The differential diagnosis associated with the presentation includes As per [facility]. Lab Data [facility] Lab Attestation statement: I reviewed the patient's lab results. As per [facility]. 09/30/23 11:26 09/30/23 11:25 Labs: Lab Results 09/30/23 09/30/23 Range/Units 11:25 11:26 WBC 6.6 (4.8-10.8) X10*3/uL RBC 4.40 L (4.60-5.80) X10*6/uL Hgb 12.5 L (14.0-18.0) g/dl Hct 37.7 L (42.0-52.0) % MCV 85.7 (80.0-98.0) fL MCH 28.4 (27.0-33.0) pg MCHC 33.2 (31.0-36.0) g/dl RDW 14.0 (11.0-16.0) % Plt Count 126 L (160-400) X10*3/uL MPV 11.5 (9.4-12.4) fL Immature Gran % (Auto) 0.5 H (0.0-0.4) % Neut % (Auto) 66.5 (45-73) % Lymph % (Auto) 23.9 (20-40) % [place] % (Auto) 7.4 (2-11) % Eos % (Auto) 1.5 (0-4) % Baso % (Auto) 0.2 (0-2) % Lymph # (Auto) 1.6 (1.2-4.9) X10*3/uL [place] # (Auto) 0.5 (0.1-1.2) X10*3/uL Eos # (Auto) 0.1 (0.0-0.4) X10*3/uL Baso # (Auto) 0.0 (0.0-0.2) X10*3/uL Abs Immat Gran (auto) 0.03 (0.00-0.03) X10*3/uL Absolute Neuts (auto) 4.4 (2.0-8.3) x10*3/uL Absolute Nucleated RBC 0.000 (0.0-0.012) X10*3/uL Nucleated RBC % (auto) 0.0 (0.0-0.2) /100WBC ESR 11 (0-15) MM/HR Sodium 140 (135-145) mmol/L Potassium 4.8 D (3.3-5.1) mmol/L Chloride 103 (96-108) mmol/L Carbon Dioxide 29 (22-29) mmol/L Anion Gap 13 (12-20) BUN 29 H (9-16) mg/dL Creatinine 0.85 (0.5-1.4) mg/dL Estim Creat Clear Calc 85.9 Estimated GFR > 60 Random Glucose 81 (60-115) mg/dL Calcium 10.1 (8.4-10.2) mg/dL C-Reactive Protein 0.18 (< or = 0.50) mg/dL Independent Interpretation I performed an independent interpretation of an: Plain X-Ray Radiology Impression Discussion of test interpretation with radiology: I have reviewed the radiologist's reading. External Record Review External record reviewed: Inpatient record, Office record and Outpatient record Prescription Management I considered prescription management with: Antibiotic Discharge Plan Discharge Clinical Impression: Abscess of left elbow Patient Disposition: Home, Self-Care Instructions: Abscess (ED), Abscess Follow-up (ED) Additional Instructions: You were evaluated in the ER for an abscess. Please keep the area surrounding the abscess clean and dry. You were given a prescription for antibiotics, please take the antibiotics as directed for the full course of the medication. You should perform a skin check of the area daily. If the abscess progresses you may have to have the abscess incised and drained. You can use Tylenol or ibuprofen per package directions as needed for pain. If necessary, you can alternate these medications so that you take one medication every 3 hours. For instance, at noon take ibuprofen, then at 3:00 p.m. take Tylenol, then at 6:00 p.m. take ibuprofen. Please schedule an appointment with your primary care physician as soon as possible for follow-up. Return to the emergency department if you experience fevers greater than 100.4? F, increased in area of redness or swelling, increasing amount of discharge from the area, increased tenderness around the area, or any other concerning symptoms. Prescriptions: New clindamycin HCl 150 mg capsule 450 mg PO TID 7 Days Qty: 63 0RF No Action bisacodyl [Dulcolax (bisacodyl)] 5 mg tablet,delayed release (DR/EC) 10 mg PO ONCE 1 Days Qty: 2 0RF Rx Instructions: Take 2 tablets at 12:00pm the day before your procedure, bowel prep mirtazapine 7.5 mg tablet 7.5 mg PO BEDTIME Qty: 30 0RF ibuprofen 800 mg tablet 800 mg PO Q8H PRN (Reason: pain) Qty: 14 0RF naproxen 500 mg tablet 500 mg PO BID 7 Days Qty: 14 0RF doxycycline hyclate 100 mg capsule 100 mg PO BID 7 Days Qty: 14 0RF calcium-vitamin D3-vitamin K [Citracal-D3 Soft Chew] 500 mg-1,000 unit-40 mcg tablet,chewable 1 tab PO ONCE 30 Days Qty: 30 4RF hydralazine 10 mg tablet 10 mg PO BID lisinopril 40 mg tablet 40 mg PO DAILY amlodipine-benazepril 2.5-10 mg capsule 1 cap PO DAILY omeprazole 40 mg capsule,delayed release(DR/EC) 40 mg PO DAILY hydroxyzine pamoate 50 mg capsule 50 mg PO BID PRN (Reason: anxiety) Qty: 30 0RF Print Language: Irish
[2023-09-30 11:30] LABS: MANUAL DIFF FLAG NO
[2023-09-30 11:33] LABS: Basophils Percent Auto 0.2 % (0-2); Eosinophils Absolute Auto 0.1 X10*3/uL (0.0-0.4); Eosinophils Percent Auto 1.5 % (0-4); Hematocrit 37.7 % (42.0-52.0); Hemoglobin 12.5 g/dl (14.0-18.0); Imm Gran Abs Auto 0.03 X10*3/uL (0.00-0.03); Imm Gran Pct Auto 0.5 % (0.0-0.4); Lymphocytes Absolute Auto 1.6 X10*3/uL (1.2-4.9); Lymphocytes Percent Auto 23.9 % (20-40); Mean Corpuscular HGB Conc 33.2 g/dl (31.0-36.0); Mean Corpuscular Hemoglobin 28.4 pg (27.0-33.0); Mean Corpuscular Volume 85.7 fL (80.0-98.0); Mean Platelet Volume 11.5 fL (9.4-12.4); Monocytes Absolute Auto 0.5 X10*3/uL (0.1-1.2); Monocytes Percent Auto 7.4 % (2-11); Neutrophils Absolute Auto 4.4 x10*3/uL (2.0-8.3); Neutrophils Percent Auto 66.5 % (45-73); Platelet Count 126 X10*3/uL (160-400); White Blood Count 6.6 X10*3/uL (4.8-10.8)
[2023-09-30 11:45] LABS: Anion Gap 13 (12-20); Blood Urea Nitrogen 29 mg/dL (9-16); C Reactive Protein 0.18 mg/dL (< or = 0.50); Calcium 10.1 mg/dL (8.4-10.2); Carbon Dioxide 29 mmol/L (22-29); Chloride 103 mmol/L (96-108); Creatinine Clr Calc Pharmacy 85.9; Estimated Glomerular Filt Rate > 60; Glucose Random 81 mg/dL (60-115); Potassium 4.8 mmol/L (3.3-5.1); Sodium 140 mmol/L (135-145)
[2023-09-30 12:10] LABS: Erythrocyte Sedimentation Rate 11 MM/HR (0-15)
[2023-09-30 14:01] VITALS: BP 110/76; PULSE 76; RESP 18; TEMP 36.8; O2SAT 98
== END 2023-09-30 14:03 | disposition home or self-care (01) ==
PROVIDERS: Registered Nurse Emergency; Emergency Provider Emergency Medicine
DX: L02.414 Cutaneous abscess of left upper limb (principal); I10 Essential (primary) hypertension; F11.90 Opioid use, unspecified, uncomplicated; D64.9 Anemia, unspecified; Z86.19 Personal history of other infectious and parasitic diseases
CPT/HCPCS: 36415; 73070; 80048; 85025; 85652; 86140; 99283; 99284

== ENCOUNTER 2023-10-13 08:52 | Emergency (ER) | payer MEDICAID, SELFPAY ==
--- NOTE | ~2023-10-13 | XR_ITS ---
EXAMINATION: XR CHEST CLINICAL INFORMATION: Chest pain COMPARISON: 06/02/2023 TECHNIQUE: Frontal view of the chest was obtained. FINDINGS: Lungs grossly are clear. Heart and pulmonary vessels are normal. XR/XR chest 1V IMPRESSION: No active disease.
[2023-10-13 09:06] VITALS: BP 111/64; PULSE 97; RESP 16; TEMP 36.9; O2SAT 98; BMI 22.1
--- NOTE | 2023-10-13 09:11 | ECG_ITS ---
Test Reason : CP Blood Pressure : / mmHG Vent. Rate : 088 BPM Atrial Rate : 088 BPM P-R Int : 146 ms QRS Dur : 078 ms QT Int : 362 ms P-R-T Axes : 063 074 061 degrees QTc Int : 438 ms Normal sinus rhythm Normal ECG When compared with ECG of 02-JUN-2023 13:20, No significant change was found Referred By: Generic ED Physician Electronically Signed By:Rosales Kaiser
[2023-10-13 09:31] LABS: MANUAL DIFF FLAG NO
[2023-10-13 09:32] LABS: Basophils Percent Auto 0.5 % (0-2); Eosinophils Absolute Auto 0.1 X10*3/uL (0.0-0.4); Eosinophils Percent Auto 1.4 % (0-4); Hematocrit 35.4 % (42.0-52.0); Hemoglobin 11.9 g/dl (14.0-18.0); Imm Gran Abs Auto 0.05 X10*3/uL (0.00-0.03); Imm Gran Pct Auto 0.7 % (0.0-0.4); Lymphocytes Absolute Auto 1.7 X10*3/uL (1.2-4.9); Lymphocytes Percent Auto 23.6 % (20-40); Mean Corpuscular HGB Conc 33.6 g/dl (31.0-36.0); Mean Corpuscular Hemoglobin 28.3 pg (27.0-33.0); Mean Corpuscular Volume 84.1 fL (80.0-98.0); Mean Platelet Volume 10.8 fL (9.4-12.4); Monocytes Absolute Auto 0.5 X10*3/uL (0.1-1.2); Monocytes Percent Auto 7.2 % (2-11); Neutrophils Absolute Auto 4.9 x10*3/uL (2.0-8.3); Neutrophils Percent Auto 66.6 % (45-73); Platelet Count 169 X10*3/uL (160-400); Red Blood Count 4.21 X10*6/uL (4.60-5.80); Red Cell Distribution Width 14.1 % (11.0-16.0); White Blood Count 7.3 X10*3/uL (4.8-10.8)
[2023-10-13 09:47] LABS: Alanine Aminotransferase 26 U/L (0-40); Albumin Level 4.6 g/dL (3.5-5.0); Alkaline Phosphatase 88 U/L (39-117); Anion Gap 16 (12-20); Aspartate Amino Transferase 30 U/L (5-37); Bilirubin Direct 0.2 mg/dL (0.0-0.5); Bilirubin Total 0.4 mg/dL (0.0-1.0); Blood Urea Nitrogen 56 mg/dL (9-16); Calcium 9.6 mg/dL (8.4-10.2); Carbon Dioxide 24 mmol/L (22-29); Chloride 103 mmol/L (96-108); Creatinine Clr Calc Pharmacy 30.1; Estimated Glomerular Filt Rate 26; Glucose Random 164 mg/dL (60-115); Potassium 4.1 mmol/L (3.3-5.1); Sodium 139 mmol/L (135-145); Total Protein 7.7 g/dL (6.5-8.0)
[2023-10-13 09:54] LABS: Troponin-I High Sensitivity 3.6 ng/L (<3.5-35.0)
--- NOTE | 2023-10-13 10:29 | PC.NURSE ---
Patient reports left sided chest pain that started last night and comes and goes. States that he also has a headache and intermittent abdominal pain. reports about 1 month ago was poked by a thorn and his left elbow became infected and needed to be opened up and drained. States then started with a new area on the left elbow and was given po abt (doxy and clindamicin) states that he took full course of doxy but only took 4 capsules of clindamicin because it caused diarrhea. States hx of liver issues.
--- NOTE | 2023-10-13 11:25 | ED_ITS ---
HPI - Chest Pain General Chief Complaint: Chest Pain Stated Complaint: sharp pain under rib, headache Time Seen by Provider: 10/13/23 09:35 Source: patient and old records reviewed Mode of arrival: ambulatory Limitations: no limitations History of Present Illness ED Provider: MARY HPI narrative: 58 yo male opiate use disorder, HTN, GERD, anemia, hep C, cocaine use, notes for the past 3 days he has sharp intermittent L sided chest pain under rib cage. He also notes 4 diarrhea episodes a day without blood. He was Rx clindamycin 09/29 for L elbow infection but stopped taking it. He denies travel hx. He notes no cough, fevers, dyspnea. Denies IVDA currently. MD complaint: chest pain Onset (ago): day(s) (3) Timing of current episode: episodic Prior episodes: No Onset: during rest Pain location: left chest Pain radiation: none Severity: moderate Quality: sharp Relieving factors: nothing Exacerbating factors: nothing Context: other (clindamycin and doxy use) Associated symptoms: other (diarrhea) Treatment prior to arrival: none Related Data Home Medications ?Medication ?Instructions ?Recorded ?Confirmed amlodipine 2.5 mg-benazepril 10 mg 1 cap PO DAILY 01/25/20 10/17/20 capsule hydralazine 10 mg tablet 10 mg PO BID 01/25/20 05/31/23 lisinopril 40 mg tablet 40 mg PO DAILY 01/25/20 05/31/23 omeprazole 40 mg capsule,delayed 40 mg PO DAILY 01/25/20 05/31/23 release Previous Rx's ?Medication ?Instructions ?Recorded bisacodyl 5 mg tablet,delayed 10 mg (2 x 5 mg) PO ONCE Bowel 02/16/20 release (Dulcolax (bisacodyl)) Preparation 1 day #2 tabs calcium-vitamin D3-vitamin K 500 1 tab PO ONCE 30 days #30 tabs 04/25/20 mg-1,000 unit-40 mcg chewable tablet (Citracal-D3 Soft Chew) ibuprofen 800 mg tablet 800 mg PO Q8H PRN pain #14 tabs 12/08/20 naproxen 500 mg tablet 500 mg PO BID 7 days #14 tabs 09/15/22 hydroxyzine pamoate 50 mg capsule 50 mg PO BID PRN anxiety #30 caps 05/31/23 mirtazapine 7.5 mg tablet 7.5 mg PO BEDTIME #30 tabs 06/28/23 doxycycline hyclate 100 mg capsule 100 mg PO BID cough 7 days #14 caps 09/04/23 clindamycin HCl 150 mg capsule 450 mg (3 x 150 mg) PO TID 7 days 09/30/23 #63 caps Allergies Allergy/AdvReac Type Severity Reaction Status Date / Time latex [LATEX] Allergy Mild RASH Verified 10/13/23 09:07 Review of Systems 2 Review of Systems: Constitutional : No Weight loss, No Fever, No Chills ENT/Mouth : No sore throat, No Rhinorrhea Eyes: No Eye Pain, No Swelling Cardiovascular : pos Chest Pain, no SOB, no Dyspnea on Exertion, No Orthopnea, No Edema, No Palpitations Respiratory : No Cough, No Sputum Gastrointestinal : no Nausea, No Vomiting, No Diarrhea, No abdominal Pain, No Hematochezia, No Melena Genitourinary : No Dysuria, No Urinary Frequency Musculoskeletal : No joint pain, No Myalgias, No Joint Swelling Skin : No Skin Lesions, No rash Neuro : No Weakness, No Numbness, No Dizziness, No Headache Psych : No Anxiety/Panic, No Depression All other systems reviewed and are negative PMFSH Past Medical History Attestation statement: The following information was validated with the patient. Source: old records reviewed Medical History Rotator cuff dysfunction Cirrhosis of liver without ascites Anemia Periumbilical abdominal pain Chronic constipation History of Helicobacter pylori infection Hypertension Depression History of drug abuse GERD (gastroesophageal reflux disease) Hepatitis C virus infection resolved after antiviral drug therapy Surgical History Hx of endoscopy History of colonoscopy H/O removal of cyst (~06/15/13) S/P excision of lipoma (~06/2014) H/O wisdom tooth extraction History of cholecystectomy (~2010) H/O inguinal hernia repair (~1989) Hx of tonsillectomy Family History Family History Father History of high blood pressure Mother History of depression Social History Social History Household Members Other:: SISTER Alcohol intake: former Cigarettes Per Day: 5 Smoked in Last 30 Days: Yes Use of substances other than those prescribed or required for medical reasons: Yes Substance Use Type: Crack/Cocaine Substance Use Frequency: Chronic Longstanding Advance Directives: No Current occupational status: disabled Current occupation: right handed Physical Exam 2 Vital Signs: Vital Signs: Last Vital Signs Temp 98.4 F 10/13/23 09:06 Pulse 97 10/13/23 09:06 Resp 16 10/13/23 09:06 BP 111/64 10/13/23 09:06 Pulse Ox 98 10/13/23 09:06 O2 Del Method Room Air 10/13/23 09:06 BMI result Body Mass Index 22.1 Appearance: Alert. Oriented X3. No acute distress. Eyes: Pupils equal, round and reactive to light. ENT: Pharynx normal. Neck: Normal inspection. Neck supple. CVS: Normal heart rate and rhythm. Pulses normal. Respiratory: No respiratory distress. Breath sounds normal. Abdomen: Soft and nontender. Skin: Skin warm and dry. Normal skin color. Normal skin turgor. Extremities: No lower extremity edema. No calf ttp L elbow no signs of infection or joint effusion Neuro: Oriented X 3. No motor deficit. No sensory deficit. Medications Administered Generic Name Dose Route Start Last Admin Trade Name Freq PRN Reason Stop Dose Admin Nicotine Polacrilex 2 mg 10/13/23 11:40 10/13/23 11:58 Nicotine Polacrilex 2 Mg Gum BUCCAL 2 mg Q2H PRN Administration Nicotine Cravings Discontinued Medications Generic Name Dose Route Start Last Admin Trade Name Freq PRN Reason Stop Dose Admin Sodium Chloride 1,000 mls @ 999 mls/hr 10/13/23 11:20 10/13/23 13:59 Ns IV 10/13/23 12:20 Infused .Q1H1M ONE Infusion Sodium Chloride 500 mls @ 500 mls/hr 10/13/23 11:20 10/13/23 13:59 Ns IV 10/13/23 12:19 Infused .Q1H ONE Infusion Sodium Chloride 1,000 mls @ 999 mls/hr 10/13/23 11:20 10/13/23 15:06 Ns IV 10/13/23 12:20 Infused .Q1H1M ONE Infusion Medical Decision Making Medical Decision Making MDM Narrative: 58 yo male opiate use disorder, HTN, GERD, anemia, hep C, cocaine use here with c/o intermittent chest pain x 3 days that is not related to exertion he adamantly denies IVDA so endocarditis seems less likely at this time. He will get troponin x 1 and EKG, CXR for PTX/pneumonia. Ddimer ordered to rule out VTE. IVF x 2.5L and recheck of Cr ordered. He did have diarrhea post clindamycin and it is hot out and he is not drinking enough fluids. Doubt c diff due to only 4 stools a day no wbc count and stool output improving. Differential Diagnosis Differential Diagnoses: The differential diagnosis associated with the presentation includes atypical chest pain, pneumonia, pleurisy, VTE, rib fracture denies IVDA and no fevers, wbc count doubt endocarditis new onset KIRSTIN possible dehydration/cocaine use/rhabdo Admission/Observation Consideration of admission/observation: Escalation of care including admission/observation considered pending repeat BMP if Cr corrects he can go home if still up he will need admission if he goes home will need to hold the lisinopril signed out to [place] 4pm Lab Data MDM Lab Attestation statement: I reviewed the patient's lab results. 10/13/23 09:25 10/13/23 09:25 Labs: Lab Results 10/13/23 10/13/23 Range/Units 09:25 11:55 WBC 7.3 (4.8-10.8) X10*3/uL RBC 4.21 L (4.60-5.80) X10*6/uL Hgb 11.9 L (14.0-18.0) g/dl Hct 35.4 L (42.0-52.0) % MCV 84.1 (80.0-98.0) fL MCH 28.3 (27.0-33.0) pg MCHC 33.6 (31.0-36.0) g/dl RDW 14.1 (11.0-16.0) % Plt Count 169 D (160-400) X10*3/uL MPV 10.8 (9.4-12.4) fL Immature Gran % (Auto) 0.7 H (0.0-0.4) % Neut % (Auto) 66.6 (45-73) % Lymph % (Auto) 23.6 (20-40) % [place] % (Auto) 7.2 (2-11) % Eos % (Auto) 1.4 (0-4) % Baso % (Auto) 0.5 (0-2) % Lymph # (Auto) 1.7 (1.2-4.9) X10*3/uL [place] # (Auto) 0.5 (0.1-1.2) X10*3/uL Eos # (Auto) 0.1 (0.0-0.4) X10*3/uL Baso # (Auto) 0.0 (0.0-0.2) X10*3/uL Abs Immat Gran (auto) 0.05 H (0.00-0.03) X10*3/uL Absolute Neuts (auto) 4.9 (2.0-8.3) x10*3/uL Absolute Nucleated RBC 0.000 (0.0-0.012) X10*3/uL Nucleated RBC % (auto) 0.0 (0.0-0.2) /100WBC D-Dimer High Sensitivty 158 NG/ML Sodium 139 (135-145) mmol/L Potassium 4.1 (3.3-5.1) mmol/L Chloride 103 (96-108) mmol/L Carbon Dioxide 24 (22-29) mmol/L Anion Gap 16 (12-20) BUN 56 H (9-16) mg/dL Creatinine 2.51 H (0.5-1.4) mg/dL Estim Creat Clear Calc 30.1 Estimated GFR 26 Random Glucose 164 H (60-115) mg/dL Calcium 9.6 (8.4-10.2) mg/dL Total Bilirubin 0.4 (0.0-1.0) mg/dL Direct Bilirubin 0.2 (0.0-0.5) mg/dL AST 30 (5-37) U/L ALT 26 (0-40) U/L Alkaline Phosphatase 88 (39-117) U/L Total Creatine Kinase 341 H (38-174) U/L Troponin I High Sens 3.6 (<3.5-35.0) ng/L Total Protein 7.7 (6.5-8.0) g/dL Albumin 4.6 (3.5-5.0) g/dL Independent Interpretation I performed an independent interpretation of an: EKG and Plain X-Ray (normal ) Interpretation: Rate: 88 Rhythm: NSR [place]: normal Normal P waves. Normal ASHLYN. Normal QRS complex. ST T wave : normal no TIA qTC: 438 prior studies: no acute ischemia The study has been interpreted contemporaneously by me. . Radiology Impression Discussion of test interpretation with radiology: I have reviewed the radiologist's reading. External Record Review External record reviewed: Inpatient record Critical Care Time Critical Care Time Critical Care Time: Yes Total Critical Care Time: 45 Attestation: review of records, repeat labs, 2.5L of IVF I attest to this time spent taking care of the patient Discharge Plan Discharge Clinical Impression: Atypical chest pain, KIRSTIN (acute kidney injury) Patient Disposition: Still a Patient Instructions: Chest Pain (ED), Acute Kidney Injury (DC) Additional Instructions: drink plenty of fluids take a probiotic over the counter you do not need any antibiotics no motrin, ibuprofen, advil or any NSAIDs but tylenol is okay hold lisinopril until Wednesday follow up with primary care doctor on Wednesday and repeat kidney function then Prescriptions: No Action bisacodyl [Dulcolax (bisacodyl)] 5 mg tablet,delayed release (DR/EC) 10 mg PO ONCE 1 Days Qty: 2 0RF Rx Instructions: Take 2 tablets at 12:00pm the day before your procedure, bowel prep mirtazapine 7.5 mg tablet 7.5 mg PO BEDTIME Qty: 30 0RF ibuprofen 800 mg tablet 800 mg PO Q8H PRN (Reason: pain) Qty: 14 0RF naproxen 500 mg tablet 500 mg PO BID 7 Days Qty: 14 0RF clindamycin HCl 150 mg capsule 450 mg PO TID 7 Days Qty: 63 0RF doxycycline hyclate 100 mg capsule 100 mg PO BID 7 Days Qty: 14 0RF calcium-vitamin D3-vitamin K [Citracal-D3 Soft Chew] 500 mg-1,000 unit-40 mcg tablet,chewable 1 tab PO ONCE 30 Days Qty: 30 4RF hydralazine 10 mg tablet 10 mg PO BID lisinopril 40 mg tablet 40 mg PO DAILY amlodipine-benazepril 2.5-10 mg capsule 1 cap PO DAILY omeprazole 40 mg capsule,delayed release(DR/EC) 40 mg PO DAILY hydroxyzine pamoate 50 mg capsule 50 mg PO BID PRN (Reason: anxiety) Qty: 30 0RF Print Language: Colombian
[2023-10-13] MEDS: 0.9 % Sodium Chloride 1,000 ML 999 ML IV ×2 (11:36→13:11)
[2023-10-13] MEDS: Nicotine Polacrilex 2 MG GUM BUCCAL (11:58)
[2023-10-13 12:08] LABS: D Dimer High Sensitivity 158 NG/ML
[2023-10-13] MEDS: 0.9 % Sodium Chloride 500 ML IV (13:11)
[2023-10-13 16:28] LABS: Anion Gap 10 (12-20); Blood Urea Nitrogen 45 mg/dL (9-16); Calcium 8.5 mg/dL (8.4-10.2); Carbon Dioxide 26 mmol/L (22-29); Chloride 110 mmol/L (96-108); Creatinine Clr Calc Pharmacy 45.2; Estimated Glomerular Filt Rate 42; Glucose Random 134 mg/dL (60-115); Potassium 4.6 mmol/L (3.3-5.1); Sodium 141 mmol/L (135-145)
[2023-10-13 18:03] VITALS: BP 120/80; PULSE 80; RESP 18; TEMP 36.6; O2SAT 98
== END 2023-10-13 18:07 | disposition home or self-care (01) ==
PROVIDERS: Emergency Medicine; Emergency Provider Internal Medicine
DX: R07.89 Other chest pain (principal); R11.2 Nausea with vomiting, unspecified; R51.9 Headache, unspecified; R05.9 Cough, unspecified; R50.9 Fever, unspecified; Z79.899 Other long term (current) drug therapy
CPT/HCPCS: 36415; 71045; 80048; 80076; 82550; 84484; 85025; 85379; 93005; 96360; 96361; 99284

== ENCOUNTER → 2023-10-13 09:11 | Outpatient (BNV) | payer MEDICAID, SELFPAY | PROVIDERS: Emergency Provider Emergency Medicine; Visit Provider Internal Medicine Cardiovascular Disease | DX: R07.9 Chest pain, unspecified (principal) | CPT/HCPCS: 93010 ==

== ENCOUNTER 2023-10-21 10:06 | Outpatient (AMB) | payer MEDICAID, SELFPAY ==
--- NOTE | 2023-10-21 10:29 | A.OFFVISCC_ITS ---
Vital Signs 10/21/23 10:30 BP 120/70 Blood Pressure Location Rt brachial Respiration 19 Pulse 84 Pulse Oximetry (%) 98 Intake Visit Reasons: Restart Allergies latex [LATEX] Allergy (Mild, Verified 10/13/23 09:07) RASH Medication List - Last Reconciled 10/21/23 by Nelly Santoyo CNP amlodipine-benazepril 2.5-10 mg 1 cap PO DAILY bisacodyl (Dulcolax (bisacodyl)) 10 mg (2 x 5 mg) PO ONCE 1 day calcium-vitamin D3-vitamin K 500 mg-1,000 unit-40 mcg (Citracal-D3 Soft Chew) 1 tab PO ONCE 30 days hydralazine 10 mg PO BID ibuprofen 800 mg PO Q8H PRN lisinopril 40 mg PO DAILY omeprazole 40 mg PO DAILY HPI HPI Restart: Details: Patient presents for follow up --last seen several months ago when he wanted transition from methadone to buprenorphine He is currently at 27mg methadone -last dose this morning. Previously had discussed not needing to taper methadone dose, however patient did not feel comfortable transitioning at previous dose last use 2 days ago --every other day use of fentanyl and cocaine Discussed ongoing use and how this may impact transition. Patient verbalized understanding Chart review shows that patient was seen in ED recently for abcess on forearm and awas started on PO abx. He reports he did not finish the course of antibiotics because he did not like the way they made him feel ? new abcess on right forearm. Denies fever, some tenderness, warm to the touch, and states he has expressed puss from it He states he is going to [facility] after this visit to be seen for this [facility] Medical History Rotator cuff dysfunction Cirrhosis of liver without ascites Anemia Periumbilical abdominal pain Chronic constipation History of Helicobacter pylori infection Hypertension Depression History of drug abuse GERD (gastroesophageal reflux disease) Hepatitis C virus infection resolved after antiviral drug therapy Surgical History Hx of endoscopy History of colonoscopy H/O removal of cyst (~06/15/13) S/P excision of lipoma (~06/2014) H/O wisdom tooth extraction History of cholecystectomy (~2010) H/O inguinal hernia repair (~1989) Hx of tonsillectomy Family History Father History of high blood pressure Mother History of depression Social History Household Members Other:: SISTER Alcohol intake: former Cigarettes Per Day: 5 Substance Use Type: Crack/Cocaine Current occupational status: disabled Current occupation: right handed Review of Systems Const Reports as per HPI Physical Exam Vital Signs: Last Vital Signs Pulse 84 10/21/23 10:30 Resp 19 10/21/23 10:30 BP 120/70 10/21/23 10:30 Pulse Ox 98 10/21/23 10:30 Const General: cooperative, healthy appearing and acute distress Nutritional Appearance: thin Orientation/consciousness: patient oriented x3 Limitations: no limitations Skin Lesions: other (round, firm raised area right forearm) Neuro General: patient oriented x3 Psych Appearance: well kempt Speech and movement: Clear speech present Affect: normal affect Attitude: cooperative Thought process: Circumstantial thought process present Thought content: Normal thought content present Insight: Fair insight present (Psych) Judgement: Fair judgement present (Psych) Assessment & Plan Assessment & Plan (1) Opioid use disorder: Code(s): F11.90 - Opioid use, unspecified, uncomplicated Category: Medical Plan: * provided written and verbal instructions on transition * patient to call on Wednesday to follow up with RN--at this time additional suboxne will be sent in Medications: New buprenorphine-naloxone 2-0.5 mg (Suboxone) 1 film sublingual BID 8 ea 0RF
[2023-10-21 10:30] VITALS: BP 120/70; PULSE 84; RESP 19; O2SAT 98
== END 2023-10-21 11:02 | disposition home or self-care (01) ==
PROVIDERS: Visit Provider Nurse Practitioner Psychiatric/Mental Health
DX: F11.90 Opioid use, unspecified, uncomplicated (principal)
CPT/HCPCS: 99214

== ENCOUNTER → 2023-10-21 10:06 | Outpatient (BNVA) | payer MEDICAID, SELFPAY | PROVIDERS: Visit Provider Nurse Practitioner Psychiatric/Mental Health | DX: F11.20 Opioid dependence, uncomplicated (principal) | CPT/HCPCS: 99212 ==

== ENCOUNTER 2023-10-23 19:26 | Emergency (ER) | payer MEDICAID, SELFPAY ==
[2023-10-23 19:31] VITALS: BP 102/63; PULSE 88; RESP 16; TEMP 36.6; O2SAT 98; BMI 20.2
--- NOTE | 2023-10-23 19:32 | ED.GENADULT ---
HPI - General Adult General Chief complaint: General Medical Stated complaint: rt arm bump? Time Seen by Provider: 10/23/23 21:07 History of Present Illness ED Provider: Campos NORIEGA narrative: The patient is a 58-year-old male with a history of hypertension who comes to the emergency room for evaluation of a painful swelling on his right forearm that has been getting worse for the last 3 or 4 days. No definite fever. The patient says that he has had 2 abscesses in his left arm recently. He says the first abscess occurred after he had a thorn injury to the left arm. Why he might have had the other 2 abscesses however. He says he does not inject himself with anything. Related Data Home Medications ?Medication ?Instructions ?Recorded ?Confirmed amlodipine 2.5 mg-benazepril 10 mg 1 cap PO DAILY 01/25/20 10/21/23 capsule hydralazine 10 mg tablet 10 mg PO BID 01/25/20 10/21/23 lisinopril 40 mg tablet 40 mg PO DAILY 01/25/20 10/21/23 omeprazole 40 mg capsule,delayed 40 mg PO DAILY 01/25/20 10/21/23 release Previous Rx's ?Medication ?Instructions ?Recorded bisacodyl 5 mg tablet,delayed 10 mg (2 x 5 mg) PO ONCE Bowel 02/16/20 release (Dulcolax (bisacodyl)) Preparation 1 day #2 tabs calcium-vitamin D3-vitamin K 500 1 tab PO ONCE 30 days #30 tabs 04/25/20 mg-1,000 unit-40 mcg chewable tablet (Citracal-D3 Soft Chew) ibuprofen 800 mg tablet 800 mg PO Q8H PRN pain #14 tabs 12/08/20 buprenorphine 2 mg-naloxone 0.5 mg 1 film sublingual BID #8 ea 10/21/23 sublingual film (Suboxone) doxycycline monohydrate 100 mg 100 mg PO BID 8 days #16 caps 10/23/23 capsule Allergies Allergy/AdvReac Type Severity Reaction Status Date / Time latex [LATEX] Allergy Mild RASH Verified 10/23/23 19:33 Review of Systems Review of Systems: Yes all other systems are reviewed and are negative PMFSH Past Medical History Medical History Rotator cuff dysfunction Cirrhosis of liver without ascites Anemia Periumbilical abdominal pain Chronic constipation History of Helicobacter pylori infection Hypertension Depression History of drug abuse GERD (gastroesophageal reflux disease) Hepatitis C virus infection resolved after antiviral drug therapy Surgical History Hx of endoscopy History of colonoscopy H/O removal of cyst (~06/15/13) S/P excision of lipoma (~06/2014) H/O wisdom tooth extraction History of cholecystectomy (~2010) H/O inguinal hernia repair (~1989) Hx of tonsillectomy Family History Family History Father History of high blood pressure Mother History of depression Social History Social History Household Members Other:: SISTER Unable to assess alcohol history related to: Unknown Alcohol intake: former Cigarettes Per Day: 5 Use of substances other than those prescribed or required for medical reasons: No Substance Use Type: Crack/Cocaine Advance Directives: No Advance Directives Information Provided: No Do you have a plan to hurt others: No Plan Current occupational status: disabled Current occupation: right handed Physical Exam ED Vital Signs: Vital Signs - 24 hr 10/23/23 19:31 10/23/23 22:39 Temperature 97.8 F 97.8 F Pulse Rate 88 88 Respiratory Rate 16 16 Blood Pressure 102/63 102/63 Pulse Oximetry 98 98 Oxygen Delivery Method Room Air Room Air BMI result Body Mass Index 20.2 Const Other: The patient is awake, alert, pleasant, cooperative. He is a slim 58-year-old male who does not appear in acute distress or seem obviously acutely ill [facility] Other: Face is symmetrical. Mucous membranes moist Skin Other: There is an area of swelling and tenderness to the right medial mid forearm. There is some slight erythema in the surrounding skin. Neuro Other: The patient is awake and alert with a normal mental status. He has normal neurological function of the right hand Extrem Other: There is an area of swelling and tenderness and mild fluctuance on the right mid forearm. Swelling is about 2 cm across. There is some surrounding erythema Course Course Course Narrative: RME performed by Brea Valdez PA-C. Patient is a 58 year old assigned male at presenting to the emergency department with a right forearm abscess. Detailed physical exam and review of systems are deferred to the store clerk. Patient placed back in the waiting room pending room availability. Medications Administered Discontinued Medications Generic Name Dose Route Start Last Admin Trade Name Sam PRN Reason Stop Dose Admin Bacitracin 1 appl 10/23/23 22:24 10/23/23 22:33 Bacitracin Oint 0.9 Gm Packet TOPICAL 10/23/23 22:25 1 appl ONCE ONE Administration Protocol Doxycycline Monohydrate 100 mg 10/23/23 22:22 10/23/23 22:33 Doxycycline Monohydrate 100 Mg Capsule PO 10/23/23 22:23 100 mg ONCE ONE Administration Lidocaine HCl 10 ml 10/23/23 21:36 10/23/23 22:11 Lidocaine Hcl 1 % 10 Ml Vial INFILTRATI 10/23/23 21:37 10 ml ONCE ONE Administration Procedures Abscess I/D Site: upper extremity Side (if applicable): right Local Anesthetic: lidocaine 1% Amount of anesthesia used (mL): 6 Technique: incised with blade Amount of fluid expressed (mL): 5 Sent for culture/gram staining?: Yes Irrigation: Yes Packing used?: none Medical Decision Making Medical Decision Making MDM Narrative: The patient is a 58-year-old male who seems to have a soft tissue skin abscess on the right medial mid forearm which is associated with a small amount of cellulitis. I explained to the patient that it would be good to perform an incision and drainage. The patient consented. I prepped the skin of the abscess and around the abscess with Betadine. I anesthetized around the abscess with 1% plain lidocaine using 27 gauge needle. I then used a 11. Blade to make an incision which released pus and some sebaceous material. The abscess was probed and irrigated. I expressed as much material as I could out of the abscess. A culture was sent. The patient will be placed on doxycycline. He should follow up with his PCP or return to the ER if worse Discharge Plan Discharge Clinical Impression: Abscess of forearm, right Patient Disposition: Home, Self-Care Instructions: Abscess Incision and Drainage (DC) Additional Instructions: You have an abscess in your right forearm. The abscess was opened so that pus could drain. You have been started on an antibiotic, doxycycline. Please take this 2 times a day until done. Keep the abscess clean and covered. You may apply bacitracin 1 to 2 times a day to the wound with Band-Aids. Please follow up soon with your regular doctor for a recheck and to discuss why you may be having recurrent abscesses Return to the emergency room of the arm seems to be getting worse in any way Prescriptions: New doxycycline monohydrate 100 mg capsule 100 mg PO BID 8 Days Qty: 16 0RF No Action bisacodyl [Dulcolax (bisacodyl)] 5 mg tablet,delayed release (DR/EC) 10 mg PO ONCE 1 Days Qty: 2 0RF Rx Instructions: Take 2 tablets at 12:00pm the day before your procedure, bowel prep ibuprofen 800 mg tablet 800 mg PO Q8H PRN (Reason: pain) Qty: 14 0RF calcium-vitamin D3-vitamin K [Citracal-D3 Soft Chew] 500 mg-1,000 unit-40 mcg tablet,chewable 1 tab PO ONCE 30 Days Qty: 30 4RF hydralazine 10 mg tablet 10 mg PO BID lisinopril 40 mg tablet 40 mg PO DAILY amlodipine-benazepril 2.5-10 mg capsule 1 cap PO DAILY omeprazole 40 mg capsule,delayed release(DR/EC) 40 mg PO DAILY buprenorphine-naloxone [Suboxone] 2-0.5 mg film 1 film sublingual BID Qty: 8 0RF Interventions: ED Discharge Assessment Last Done: 10/23/23 22:39 Discharge Date/Time: 10/23/23 22:40 Print Language: Georgian
[2023-10-23] MEDS: Lidocaine HCl 1 % 10 ML VIAL INFILTRATI (22:11)
[2023-10-23] MEDS: Bacitracin Oint 0.9 GM PACKET 1 APPL TOPICAL (22:33)
[2023-10-23] MEDS: Doxycycline Monohydrate 100 MG CAPSULE PO (22:33)
[2023-10-23 22:39] VITALS: BP 102/63; PULSE 88; RESP 16; TEMP 36.6; O2SAT 98
== END 2023-10-23 22:40 | disposition home or self-care (01) ==
PROVIDERS: Emergency Provider Emergency Medicine
DX: L02.413 Cutaneous abscess of right upper limb (principal); I10 Essential (primary) hypertension; D64.9 Anemia, unspecified; K74.60 Unspecified cirrhosis of liver; F11.20 Opioid dependence, uncomplicated; Z86.19 Personal history of other infectious and parasitic diseases
CPT/HCPCS: 10060; 87070; 87077; 87186; 87205; 99284

== ENCOUNTER 2023-11-22 10:52 | Emergency (ER) | payer MEDICAID, SELFPAY ==
--- NOTE | ~2023-11-22 | XR_ITS ---
EXAMINATION: XR CHEST CLINICAL INFORMATION: Cough COMPARISON: 10/13/2023 TECHNIQUE: 2 views of the chest were obtained. FINDINGS: No significant abnormality is noted involving the heart, lungs, mediastinum, bony thorax or soft tissues. XR/XR chest 2V IMPRESSION: Unremarkable examination. No interval change
[2023-11-22 11:01] VITALS: BP 133/73; PULSE 104; RESP 16; TEMP 37.2; O2SAT 96; BMI 21.1
--- NOTE | 2023-11-22 11:04 | ED.SOB ---
HPI - SOB/Dyspnea General Chief Complaint: Dyspnea Stated Complaint: Congestion/SOB Time Seen by Provider: 11/22/23 11:59 Source: patient, RN notes reviewed and old records reviewed Mode of arrival: ambulatory History of Present Illness ED Provider: Rossana Burnett PA-C HPI Narrative: 58-year-old male with a past medical history of GERD, anemia, hepatitis-C, opiate use disorder, HTN, presenting to the ED complaining of congestion/rhinorrhea, productive cough and right-sided chest pain when coughing x3-4 days. Admits chest pain started after stretching in the morning. Admits to mild SOB. Denies fever, chills, sore throat, recent travel, calf pain, history of clots. Related Data Home Medications ?Medication ?Instructions ?Recorded ?Confirmed amlodipine 2.5 mg-benazepril 10 mg 1 cap PO DAILY 01/25/20 10/21/23 capsule hydralazine 10 mg tablet 10 mg PO BID 01/25/20 10/21/23 lisinopril 40 mg tablet 40 mg PO DAILY 01/25/20 10/21/23 omeprazole 40 mg capsule,delayed 40 mg PO DAILY 01/25/20 10/21/23 release Previous Rx's ?Medication ?Instructions ?Recorded bisacodyl 5 mg tablet,delayed 10 mg (2 x 5 mg) PO ONCE Bowel 02/16/20 release (Dulcolax (bisacodyl)) Preparation 1 day #2 tabs calcium-vitamin D3-vitamin K 500 1 tab PO ONCE 30 days #30 tabs 04/25/20 mg-1,000 unit-40 mcg chewable tablet (Citracal-D3 Soft Chew) ibuprofen 800 mg tablet 800 mg PO Q8H PRN pain #14 tabs 12/08/20 buprenorphine 2 mg-naloxone 0.5 mg 1 film sublingual BID #8 ea 10/21/23 sublingual film (Suboxone) doxycycline monohydrate 100 mg 100 mg PO BID 8 days #16 caps 10/23/23 capsule acetaminophen 500 mg tablet 500 mg PO Q6H PRN fever or pain 11/22/23 (Tylenol Extra Strength) #14 tabs benzonatate 100 mg capsule 100 mg PO TID PRN cough #14 caps 11/22/23 lidocaine 5 % topical patch 1 patch topical DAILY PRN pain #30 11/22/23 (Lidoderm) ea naproxen 500 mg tablet 500 mg PO BID PRN pain 10 days #20 11/22/23 tabs Allergies Allergy/AdvReac Type Severity Reaction Status Date / Time latex [LATEX] Allergy Mild RASH Verified 11/22/23 11:03 Review of Systems Review of Systems: Constitutional: No Fever, No Chills ENT/Mouth: No Ear Pain, + Nasal Congestion, No sore throat, + Rhinorrhea, No Swallowing Difficulty Cardiovascular: +Chest Pain, + SOB Respiratory: + Cough, + Sputum, No Wheezing Gastrointestinal: No Nausea, No Vomiting, No Diarrhea, No Constipation, No Abdominal pain Musculoskeletal: No joint pain, No Myalgias, No Joint Swelling Skin: No Skin Lesions, No rash Neuro: No Weakness Yes all other systems are reviewed and are negative Constitutional: Constitutional: Reports as per [facility] Past Medical History Attestation statement: The following information was validated with the patient. Source: old records reviewed Medical History Rotator cuff dysfunction Cirrhosis of liver without ascites Anemia Periumbilical abdominal pain Chronic constipation History of Helicobacter pylori infection Hypertension Depression History of drug abuse GERD (gastroesophageal reflux disease) Hepatitis C virus infection resolved after antiviral drug therapy Surgical History Hx of endoscopy History of colonoscopy H/O removal of cyst (~06/15/13) S/P excision of lipoma (~06/2014) H/O wisdom tooth extraction History of cholecystectomy (~2010) H/O inguinal hernia repair (~1989) Hx of tonsillectomy Family History Family History Father History of high blood pressure Mother History of depression Social History Social History Household Members Other:: SISTER Unable to assess alcohol history related to: Unknown Alcohol intake: former Cigarettes Per Day: 5 Substance Use Type: Crack/Cocaine Advance Directives: No Advance Directives Information Provided: No Current occupational status: disabled Current occupation: right handed Physical Exam Vital Signs: Vital Signs: Last Vital Signs Temp 98.9 F 11/22/23 13:47 Pulse 104 H 11/22/23 13:47 Resp 16 11/22/23 13:47 BP 133/73 11/22/23 13:47 Pulse Ox 96 11/22/23 13:47 O2 Del Method Room Air 11/22/23 13:47 BMI result Body Mass Index 21.1 Const: General: cooperative, healthy appearing and no acute distress Orientation/consciousness: patient oriented x3 Limitations: no limitations HEENT: Head: Yes normal to inspection and Yes atraumatic Ears: hearing grossly normal bilaterally General nose exam: Normal external nose present Face and sinus: Yes normal facial exam Eyes: General: appearance normal, both eyes and all related structures EOM: EOMs intact bilaterally Neck: Neck: Yes normal visual inspection and Yes no meningeal signs Chest: Other: + reproducible right anterior lateral chest wall tenderness. No rash, ecchymosis, erythema, or flail chest. Chest palpation & inspection: normal inspection of the chest, no crepitus and tenderness Resp: Effort & Inspection: normal respiratory effort and no respiratory distress Auscultation: clear to auscultation bilaterally, no rhonchi and no wheezes Cardio: Rate: regular rate Heart sounds: S1 normal heart sound present and S2 normal heart sound present GI: Inspection: Yes normal to inspection Palpation (GI): Soft to palpation, nontender, no guarding and not rigid : General: Yes no CVA tenderness Back/Spine/Pelvis: Back: no CVA tenderness Skin: Rashes: no rashes Wounds: no wounds Neuro: General: patient oriented x3, tone normal and no meningeal signs Cranial nerves: Yes CN's II-XII intact bilaterally Gait exam (Neuro): Normal gait present Extrem: General: Yes normal to inspection and Yes no pedal edema Course Course Course Narrative: This is a Rapid Medical Examination (RME) performed by Gregg Eden PA-C in triage. Full HPI, ROS, assessment and treatment plan per primary provider in the Main ED. 58 y/o male with history of cirrhosis, GERD, anemia, opioid use disorder who presents to the ER for evaluation of 3-4 days of SOB, productive cough, and congestion. Bringing up yellow phlegm and feels like he can't get it out. Pain in the right lower lung with coughing only. Non-toxic appearing in triage, speaking in complete sentences, no resp distress. Slightly tachycardic low 100s but saturating well. Plan: CXR, covid swab XR chest 2V IMPRESSION: Unremarkable examination. No interval change -COVID and flu negative Results discussed with patient including worrisome signs and symptoms and strict return precautions, and when to return to the emergency department. They verbalized understanding and feel safe for discharge at this time. Medications Administered Discontinued Medications Generic Name Dose Route Start Last Admin Trade Name Bjq PRN Reason Stop Dose Admin Ibuprofen 800 mg 11/22/23 12:47 11/22/23 12:54 Ibuprofen 800 Mg Tablet PO 11/22/23 12:48 800 mg ONCE ONE Administration Medical Decision Making Medical Decision Making MDM Narrative: 58-year-old male with a past medical history of GERD, anemia, hepatitis-C, opiate use disorder, HTN, presenting to the ED complaining of congestion/rhinorrhea, productive cough and right-sided chest pain when coughing x3-4 days. On exam mildly tachycardic likely from coughing/discomfort, reproducible chest pain as listed above, lungs CTA, no pedal edema. Concern for viral illness vs pneumonia vs pneumothorax vs costochondritis vs rib fracture. Lower suspicion for ACS and PE. Unlikely DVT. Low suspicion for intra-abdominal pathology Plan: CXR, viral studies Please refer to course for remaining clinical decision making, interpretation of labs/imaging results, and discussions with consultants and/or family members. Differential Diagnosis Differential Diagnoses: The differential diagnosis associated with the presentation includes As above Admission/Observation Consideration of admission/observation: Escalation of care including admission/observation considered Lab Data [facility] Lab Attestation statement: I reviewed the patient's lab results. Labs: Lab Results 11/22/23 11/22/23 Range/Units 11:56 12:27 COVID-19 (THIEN) Negative (Negative) COVID-19 Clin Com See Note Influenza Type A (JUDD) Negative (Negative) Influenza Type B (JUDD) Negative (Negative) Influenza A & B Note See Note Independent Interpretation I performed an independent interpretation of an: EKG (My interpretation EKG normal sinus rhythm rate of 76. NH interval 154. QTC 396. No significant change when compared to prior) and Plain X-Ray Radiology Impression Discussion of test interpretation with radiology: I have reviewed the radiologist's reading. External Record Review External record reviewed: Inpatient record, Office record, Outpatient record, Prior outpatient labs, Prior outpatient radiology, Primary care record and Outside ED record Tests considered The following testing was considered but not selected: As above Prescription Management I considered prescription management with: Pain Medication Discharge Plan Discharge Clinical Impression: Acute viral syndrome, Acute costochondritis Patient Disposition: Home, Self-Care Instructions: Costochondritis (ED), Viral Syndrome (ED) Additional Instructions: You tested negative for COVID and flu. Her x-rays unremarkable New likely costochondritis which is inflammation of the cartilage between your ribs Naproxen as an anti-inflammatory/pain medicine take with food. Lidoderm patches or numbing patches apply to painful area Tessalon Kenny for cough, take as needed If symptoms persist or worsen return to the ED Prescriptions: New acetaminophen [Tylenol Extra Strength] 500 mg tablet 500 mg PO Q6H PRN (Reason: fever or pain) Qty: 14 0RF benzonatate 100 mg capsule 100 mg PO TID PRN (Reason: cough) Qty: 14 0RF lidocaine [Lidoderm] 5 % adhesive patch,medicated 1 patch topical DAILY MDD remove after 12 hours PRN (Reason: pain) Qty: 30 0RF Rx Instructions: leave on most painful area for up to 12 hrs naproxen 500 mg tablet 500 mg PO BID PRN (Reason: pain) 10 Days Qty: 20 0RF No Action bisacodyl [Dulcolax (bisacodyl)] 5 mg tablet,delayed release (DR/EC) 10 mg PO ONCE 1 Days Qty: 2 0RF Rx Instructions: Take 2 tablets at 12:00pm the day before your procedure, bowel prep ibuprofen 800 mg tablet 800 mg PO Q8H PRN (Reason: pain) Qty: 14 0RF doxycycline monohydrate 100 mg capsule 100 mg PO BID 8 Days Qty: 16 0RF calcium-vitamin D3-vitamin K [Citracal-D3 Soft Chew] 500 mg-1,000 unit-40 mcg tablet,chewable 1 tab PO ONCE 30 Days Qty: 30 4RF hydralazine 10 mg tablet 10 mg PO BID lisinopril 40 mg tablet 40 mg PO DAILY amlodipine-benazepril 2.5-10 mg capsule 1 cap PO DAILY omeprazole 40 mg capsule,delayed release(DR/EC) 40 mg PO DAILY buprenorphine-naloxone [Suboxone] 2-0.5 mg film 1 film sublingual BID Qty: 8 0RF Referrals: [facility] [Primary Care Provider] - Interventions: ED Discharge Assessment Last Done: 11/22/23 13:47 Discharge Date/Time: 11/22/23 13:49 Print Language: Czech
[2023-11-22 12:18] LABS: COVID-19 Test Negative (Negative); IDNOW Serial# 152EDE1D
--- NOTE | 2023-11-22 12:47 | ECG_ITS ---
Test Reason : CHEST PAIN Blood Pressure : / mmHG Vent. Rate : 076 BPM Atrial Rate : 076 BPM P-R Int : 154 ms QRS Dur : 076 ms QT Int : 352 ms P-R-T Axes : 074 079 068 degrees QTc Int : 396 ms Normal sinus rhythm Normal ECG When compared with ECG of 13-OCT-2023 09:13, No significant change was found Referred By: Rossana Burnett Electronically Signed By:JOAN BEGUM
[2023-11-22 12:50] LABS: IDNOW Serial# 08D9AD1C; Influenza A Negative (Negative); Influenza B2 Negative (Negative)
[2023-11-22] MEDS: Ibuprofen 800 MG TABLET PO (12:54)
[2023-11-22 13:47] VITALS: BP 133/73; PULSE 104; RESP 16; TEMP 37.2; O2SAT 96
== END 2023-11-22 13:49 | disposition home or self-care (01) ==
PROVIDERS: Physician Assistant; Emergency Provider Emergency Medicine
DX: B34.9 Viral infection, unspecified (principal); M94.0 Chondrocostal junction syndrome [Tietze]; R06.02 Shortness of breath; Z03.818 Encounter for observation for suspected exposure to other biological agents ruled out; I10 Essential (primary) hypertension
CPT/HCPCS: 71046; 87502; 87635; 93005; 99283; 99284

== ENCOUNTER 2023-12-08 12:18 | Outpatient (REF) | payer MEDICAID, SELFPAY ==
--- NOTE | ~2023-12-08 | XR_ITS ---
EXAMINATION: XR CHEST CLINICAL INFORMATION: Chronic cough for 4 weeks. COMPARISON: 11/22/2023. TECHNIQUE: 2 views of the chest were obtained. FINDINGS: The lungs are well-inflated. Mild dextroscoliosis of the thoracic spine with multilevel degenerative changes. No pleural effusion. XR/XR chest 2V IMPRESSION: No evidence of pneumonia. Electronically signed by: Sol Garcia MD 12/27/2023 10:41 AM EDT
[2023-12-08 13:19] LABS: MANUAL DIFF FLAG NO
[2023-12-08 13:34] LABS: Basophils Percent Auto 0.3 % (0-2); Eosinophils Percent Auto 0.3 % (0-4); Hematocrit 35.5 % (42.0-52.0); Hemoglobin 11.5 g/dl (14.0-18.0); Imm Gran Abs Auto 0.05 X10*3/uL (0.00-0.03); Imm Gran Pct Auto 0.5 % (0.0-0.4); Lymphocytes Absolute Auto 1.2 X10*3/uL (1.2-4.9); Lymphocytes Percent Auto 11.4 % (20-40); Mean Corpuscular HGB Conc 32.4 g/dl (31.0-36.0); Mean Corpuscular Hemoglobin 27.6 pg (27.0-33.0); Mean Corpuscular Volume 85.3 fL (80.0-98.0); Mean Platelet Volume 11.9 fL (9.4-12.4); Monocytes Absolute Auto 0.5 X10*3/uL (0.1-1.2); Monocytes Percent Auto 4.3 % (2-11); Neutrophils Percent Auto 83.2 % (45-73); Platelet Count 246 X10*3/uL (160-400); Red Blood Count 4.16 X10*6/uL (4.60-5.80); Red Cell Distribution Width 13.8 % (11.0-16.0); White Blood Count 10.9 X10*3/uL (4.8-10.8)
[2023-12-08 13:35] LABS: Estimated Average Glucose 114 mg/dL; Hemoglobin A1c % 5.6 % (<6.0)
[2023-12-08 14:02] LABS: HIV AB/AG Nonreactive (Nonreactive); HIV Num 1 0.05 S/CO (0.00-0.99); ~HepC Num1 8.84 S/CO (0.00-0.79); ~Hepatitis C Antibody Reactive (Nonreactive)
[2023-12-08 14:03] LABS: Alanine Aminotransferase 18 U/L (0-40); Albumin Level 4.5 g/dL (3.5-5.0); Alkaline Phosphatase 71 U/L (39-117); Anion Gap 14 (12-20); Aspartate Amino Transferase 27 U/L (5-37); Bilirubin Total 0.5 mg/dL (0.0-1.0); Blood Urea Nitrogen 40 mg/dL (9-16); Calcium 10.7 mg/dL (8.4-10.2); Carbon Dioxide 24 mmol/L (22-29); Chloride 108 mmol/L (96-108); Estimated Glomerular Filt Rate > 60; Potassium 4.2 mmol/L (3.3-5.1); Sodium 142 mmol/L (135-145); Total Protein 8.1 g/dL (6.5-8.0)
[2023-12-08 14:21] LABS: Glucose Random 56 mg/dL (60-115)
[2023-12-09 13:52] LABS: HCV Log PCR <1.18 NOT DETECTED Log IU/mL (NOT DETECTED); HepC Viral Load <15 NOT DETECTED IU/mL (NOT DETECTED)
== END 2023-12-08 12:19 | disposition home or self-care (01) ==
LOC: HO.HHCL 12:18
PROVIDERS: Visit Provider Nurse Practitioner Family
DX: R05.3 Chronic cough (principal); F17.200 Nicotine dependence, unspecified, uncomplicated; R63.4 Abnormal weight loss
CPT/HCPCS: 36415; 71046; 80053; 83036; 84443; 85025; 86803; 87389; 87522

== ENCOUNTER 2023-12-13 19:45 | Emergency (ER) | payer MEDICAID, SELFPAY ==
--- NOTE | ~2023-12-13 | XR_ITS ---
EXAMINATION: XR CHEST CLINICAL INFORMATION: Chest pain COMPARISON: Chest x-ray December 08, 2023 TECHNIQUE: 2 views of the chest were obtained. FINDINGS: No significant abnormality is noted involving the heart, lungs, mediastinum, bony thorax or soft tissues. XR/XR chest 2V IMPRESSION: Unremarkable examination. Electronically signed by: Enrique Guevara MD 12/13/2023 10:01 PM EDT RP
--- NOTE | 2023-12-13 19:47 | ECG_ITS ---
Test Reason : chest pain Blood Pressure : / mmHG Vent. Rate : 079 BPM Atrial Rate : 079 BPM P-R Int : 128 ms QRS Dur : 082 ms QT Int : 362 ms P-R-T Axes : 050 082 066 degrees QTc Int : 415 ms Normal sinus rhythm Normal ECG When compared with ECG of 22-NOV-2023 12:52, No significant change was found Referred By: Santa Wilkinson Electronically Signed By:JOAN BEGUM
[2023-12-13 19:55] VITALS: BP 124/76; PULSE 87; RESP 16; TEMP 37.2; O2SAT 99; BMI 22.1
--- NOTE | 2023-12-13 21:11 | ED.CHESTPAIN ---
HPI - Chest Pain General Chief Complaint: Chest Pain Stated Complaint: chest pain Related Data Home Medications ?Medication ?Instructions ?Recorded ?Confirmed amlodipine 2.5 mg-benazepril 10 mg 1 cap PO DAILY 01/25/20 10/21/23 capsule hydralazine 10 mg tablet 10 mg PO BID 01/25/20 10/21/23 lisinopril 40 mg tablet 40 mg PO DAILY 01/25/20 10/21/23 omeprazole 40 mg capsule,delayed 40 mg PO DAILY 01/25/20 10/21/23 release Previous Rx's ?Medication ?Instructions ?Recorded bisacodyl 5 mg tablet,delayed 10 mg (2 x 5 mg) PO ONCE Bowel 02/16/20 release (Dulcolax (bisacodyl)) Preparation 1 day #2 tabs calcium-vitamin D3-vitamin K 500 1 tab PO ONCE 30 days #30 tabs 04/25/20 mg-1,000 unit-40 mcg chewable tablet (Citracal-D3 Soft Chew) ibuprofen 800 mg tablet 800 mg PO Q8H PRN pain #14 tabs 12/08/20 buprenorphine 2 mg-naloxone 0.5 mg 1 film sublingual BID #8 ea 10/21/23 sublingual film (Suboxone) doxycycline monohydrate 100 mg 100 mg PO BID 8 days #16 caps 10/23/23 capsule acetaminophen 500 mg tablet 500 mg PO Q6H PRN fever or pain 11/22/23 (Tylenol Extra Strength) #14 tabs benzonatate 100 mg capsule 100 mg PO TID PRN cough #14 caps 11/22/23 lidocaine 5 % topical patch 1 patch topical DAILY PRN pain #30 11/22/23 (Lidoderm) ea naproxen 500 mg tablet 500 mg PO BID PRN pain 10 days #20 11/22/23 tabs Allergies Allergy/AdvReac Type Severity Reaction Status Date / Time latex [LATEX] Allergy Mild RASH Verified 12/13/23 19:55 PMFSH Past Medical History Medical History Rotator cuff dysfunction Cirrhosis of liver without ascites Anemia Periumbilical abdominal pain Chronic constipation History of Helicobacter pylori infection Hypertension Depression History of drug abuse GERD (gastroesophageal reflux disease) Hepatitis C virus infection resolved after antiviral drug therapy Surgical History Hx of endoscopy History of colonoscopy H/O removal of cyst (~06/15/13) S/P excision of lipoma (~06/2014) H/O wisdom tooth extraction History of cholecystectomy (~2010) H/O inguinal hernia repair (~1989) Hx of tonsillectomy Family History Family History Father History of high blood pressure Mother History of depression Social History Social History Household Members Other:: SISTER Unable to assess alcohol history related to: Unknown Alcohol intake: former Cigarettes Per Day: 5 Substance Use Type: Crack/Cocaine Advance Directives: No Advance Directives Information Provided: No Do you have a plan to hurt others: No Plan Current occupational status: disabled Current occupation: right handed Physical Exam Vital Signs: Vital Signs: Last Vital Signs Temp 98.9 F 12/13/23 19:55 Pulse 87 12/13/23 19:55 Resp 16 12/13/23 19:55 BP 124/76 12/13/23 19:55 Pulse Ox 99 12/13/23 19:55 O2 Del Method Room Air 12/13/23 19:55 BMI result Body Mass Index 22.1 Course Course Course Narrative: This is an RME: Additional HPI, ROS, PE not included below will be deferred to primary provider. RME assessment and note performed by: Santa Wilkinson PA-C This is a 58-year-old male who presents emergency department with complaints of left-sided chest pain which started yesterday. He also endorses upper respiratory symptoms, cough with brown sputum for the last 2 weeks. Smoked 1-2 cigarettes per day. Plan: Labs, EKG, chest x-ray, viral swabs, further ER evaluation needed. Reevaluation(s) Reevaluation #1: Patient left without completing treatment. Discharge Plan Discharge Clinical Impression: Chest pain Patient Disposition: Left W/O Completing Treatment Prescriptions: No Action bisacodyl [Dulcolax (bisacodyl)] 5 mg tablet,delayed release (DR/EC) 10 mg PO ONCE 1 Days Qty: 2 0RF Rx Instructions: Take 2 tablets at 12:00pm the day before your procedure, bowel prep ibuprofen 800 mg tablet 800 mg PO Q8H PRN (Reason: pain) Qty: 14 0RF doxycycline monohydrate 100 mg capsule 100 mg PO BID 8 Days Qty: 16 0RF acetaminophen [Tylenol Extra Strength] 500 mg tablet 500 mg PO Q6H PRN (Reason: fever or pain) Qty: 14 0RF benzonatate 100 mg capsule 100 mg PO TID PRN (Reason: cough) Qty: 14 0RF lidocaine [Lidoderm] 5 % adhesive patch,medicated 1 patch topical DAILY MDD remove after 12 hours PRN (Reason: pain) Qty: 30 0RF Rx Instructions: leave on most painful area for up to 12 hrs naproxen 500 mg tablet 500 mg PO BID PRN (Reason: pain) 10 Days Qty: 20 0RF calcium-vitamin D3-vitamin K [Citracal-D3 Soft Chew] 500 mg-1,000 unit-40 mcg tablet,chewable 1 tab PO ONCE 30 Days Qty: 30 4RF hydralazine 10 mg tablet 10 mg PO BID lisinopril 40 mg tablet 40 mg PO DAILY amlodipine-benazepril 2.5-10 mg capsule 1 cap PO DAILY omeprazole 40 mg capsule,delayed release(DR/EC) 40 mg PO DAILY buprenorphine-naloxone [Suboxone] 2-0.5 mg film 1 film sublingual BID Qty: 8 0RF Discharge Date/Time: 12/13/23 22:19
== END 2023-12-13 22:19 | disposition left against medical advice (07) ==
LOC: HO.ED 22:19
PROVIDERS: Emergency Provider Emergency Medicine
DX: R07.89 Other chest pain (principal); F14.10 Cocaine abuse, uncomplicated; Z79.899 Other long term (current) drug therapy
CPT/HCPCS: 71046; 93005; 99283

== ENCOUNTER 2023-12-27 14:15 | Outpatient (REF) | payer MEDICAID, SELFPAY ==
[2023-12-27 16:57] LABS: MANUAL DIFF FLAG NO
[2023-12-27 17:10] LABS: Basophils Percent Auto 0.2 % (0-2); Eosinophils Percent Auto 0.4 % (0-4); Hematocrit 30.8 % (42.0-52.0); Hemoglobin 10.3 g/dl (14.0-18.0); Imm Gran Abs Auto 0.03 X10*3/uL (0.00-0.03); Imm Gran Pct Auto 0.3 % (0.0-0.4); Lymphocytes Absolute Auto 1.1 X10*3/uL (1.2-4.9); Lymphocytes Percent Auto 11.8 % (20-40); Mean Corpuscular HGB Conc 33.4 g/dl (31.0-36.0); Mean Corpuscular Hemoglobin 28.1 pg (27.0-33.0); Mean Corpuscular Volume 83.9 fL (80.0-98.0); Mean Platelet Volume 11.7 fL (9.4-12.4); Monocytes Absolute Auto 0.7 X10*3/uL (0.1-1.2); Monocytes Percent Auto 7.2 % (2-11); Neutrophils Absolute Auto 7.3 x10*3/uL (2.0-8.3); Neutrophils Percent Auto 80.1 % (45-73); Platelet Count 147 X10*3/uL (160-400); Red Blood Count 3.67 X10*6/uL (4.60-5.80); Red Cell Distribution Width 13.8 % (11.0-16.0); White Blood Count 9.1 X10*3/uL (4.8-10.8)
[2023-12-27 17:33] LABS: Parathyroid Hormone Intact 112.2 pg/mL (8.7-77.1)
[2023-12-27 17:42] LABS: Anion Gap 15 (12-20); Blood Urea Nitrogen 26 mg/dL (9-16); Calcium 10.9 mg/dL (8.4-10.2); Carbon Dioxide 23 mmol/L (22-29); Chloride 107 mmol/L (96-108); Estimated Glomerular Filt Rate 54; Glucose Random 130 mg/dL (60-115); Iron 46 mcg/dL (45-160); Percent Iron Saturation 20 % (15-50); Potassium 3.9 mmol/L (3.3-5.1); Sodium 141 mmol/L (135-145); Total Iron Binding Capacity 235 mcg/dL (228-428); Unsaturated Iron Binding 189 ug/dL
[2023-12-27 17:47] LABS: Vitamin D 25-OH Total 32.3 ng/mL (>30)
[2023-12-27 17:51] LABS: Vitamin B12 508 pg/mL (200-900)
== END 2023-12-27 14:16 | disposition home or self-care (01) ==
LOC: HO.HHCL 14:15
PROVIDERS: Visit Provider Nurse Practitioner Family
DX: D64.9 Anemia, unspecified (principal); E83.52 Hypercalcemia
CPT/HCPCS: 36415; 80048; 82306; 82607; 82746; 83540; 83970; 85025

== ENCOUNTER 2024-01-27 10:08 | Outpatient (REF) | payer MEDICAID, SELFPAY ==
[2024-01-27 11:06] LABS: MANUAL DIFF FLAG NO
[2024-01-27 11:11] LABS: Basophils Percent Auto 0.2 % (0-2); Eosinophils Percent Auto 0.5 % (0-4); Hematocrit 34.1 % (42.0-52.0); Hemoglobin 11.2 g/dl (14.0-18.0); Imm Gran Abs Auto 0.02 X10*3/uL (0.00-0.03); Imm Gran Pct Auto 0.3 % (0.0-0.4); Lymphocytes Percent Auto 16.5 % (20-40); Mean Corpuscular HGB Conc 32.8 g/dl (31.0-36.0); Mean Corpuscular Hemoglobin 27.4 pg (27.0-33.0); Mean Corpuscular Volume 83.4 fL (80.0-98.0); Mean Platelet Volume 11.6 fL (9.4-12.4); Monocytes Absolute Auto 0.4 X10*3/uL (0.1-1.2); Monocytes Percent Auto 6.1 % (2-11); Neutrophils Absolute Auto 4.5 x10*3/uL (2.0-8.3); Neutrophils Percent Auto 76.4 % (45-73); Platelet Count 175 X10*3/uL (160-400); Red Blood Count 4.09 X10*6/uL (4.60-5.80); Red Cell Distribution Width 14.7 % (11.0-16.0); White Blood Count 5.9 X10*3/uL (4.8-10.8)
[2024-01-27 11:39] LABS: Estimated Average Glucose 117 mg/dL; Hemoglobin A1C 107.0658 umol/L; Hemoglobin A1c % 5.7 % (<6.0)
[2024-01-27 11:42] LABS: Alanine Aminotransferase 30 U/L (0-40); Albumin Level 4.5 g/dL (3.5-5.0); Aspartate Amino Transferase 43 U/L (5-37); Bilirubin Total 0.6 mg/dL (0.0-1.0); Estimated Glomerular Filt Rate 56
[2024-01-27 11:48] LABS: Thyroid Stimulating Hormone 0.64 uIU/mL (0.32-4.0)
[2024-01-27 11:51] LABS: HIV AB/AG Nonreactive (Nonreactive); HIV Num 1 0.05 S/CO (0.00-0.99); ~HepC Num1 9.55 S/CO (0.00-0.79); ~Hepatitis C Antibody Reactive (Nonreactive)
[2024-01-27 12:09] LABS: Syphilis Screen Nonreactive (Nonreactive)
[2024-01-27 14:46] LABS: CT PCR NOT DETECTED (Not Detect.); NG PCR NOT DETECTED (Not Detect.)
[2024-01-28 14:08] LABS: HIV RNA PCR Qn Copies NOT DETECTED copies/mL (NOT DETECTED); HIV RNA PCR Qn Log Copies NOT DETECTED (NOT DETECTED)
== END 2024-01-27 10:09 | disposition home or self-care (01) ==
LOC: HO.HHCL 10:08
PROVIDERS: Visit Provider Internal Medicine Infectious Disease
DX: B18.2 Chronic viral hepatitis C (principal); Z20.2 Contact with and (suspected) exposure to infections with a predominantly sexual mode of transmission
CPT/HCPCS: 82040; 82247; 82565; 83036; 84443; 84450; 84460; 85025; 86780; 86803; 87389; 87491; 87536; 87591

== ENCOUNTER → 2024-02-03 10:05 | Outpatient (BNV) | payer MEDICAID, SELFPAY | PROVIDERS: PCP Internal Medicine; Referring Provider Internal Medicine; Visit Provider Internal Medicine Medical Oncology | DX: D50.9 Iron deficiency anemia, unspecified (principal) | CPT/HCPCS: 99204 ==

== ENCOUNTER 2024-02-27 11:00 | Outpatient (REF) | payer MEDICAID, SELFPAY | END 2024-02-27 11:01 | disposition home or self-care (01) | LOC: HO.LNP 11:00 | PROVIDERS: Visit Provider Family Medicine | DX: R10.13 Epigastric pain (principal) | CPT/HCPCS: 87338 ==

== ENCOUNTER 2024-05-04 13:12 | Outpatient (AMB) | payer MEDICAID, SELFPAY ==
--- NOTE | 2024-05-04 13:28 | MHC.AM.SUB ---
Vital Signs 05/04/24 13:59 Height 5 ft 8.5 in Weight 128 lb BMI 19.2 BP 140/80 H Blood Pressure Location Rt brachial Position Sitting Respiration 19 Pulse 77 Pulse Source Pulse Oximeter Pulse Oximetry (%) 98 Oxygen Delivery Method Room Air Intake Visit Reasons: Restart Allergies latex [LATEX] Allergy (Mild, Verified 02/03/24 10:47) RASH HPI HPI Restart: Details: Patient presents to re-establish care for OUD Recently completed 45 days at [place] treatment facility Started Buprenorphine while there, dose 12mg daily. Last dose, 05/03-day of discharge from facility Patient reports he is tolerating buprenorphine, but would like to transition to HAIRSTON. Notes reviewed from [facility] and HAIRSTON (Sublocade) was deferred due low BMI --weight at that time was 123 lbs Omeprazole lisinopril amlodipine iron no changes to housing in terms of recovery supports plans to attend [facility] Physical Exam Vital Signs: Last Vital Signs Pulse 77 05/04/24 13:59 Resp 19 05/04/24 13:59 BP 140/80 H 05/04/24 13:59 Pulse Ox 98 05/04/24 13:59 Oxygen Delivery Method Room Air 05/04/24 13:59 BMI result Body Mass Index 20.0 Results AMB 14 Panel Urine Drug Screen Urine Marijuana (THC) Negative Last Edit by Bernadette Hancock RN on 05/04/24 15:31 Urine Cocaine Negative Last Edit by Bernadette Hancock RN on 05/04/24 15:31 Urine Morphine Negative Last Edit by Bernadette Hancock RN on 05/04/24 15:31 Urine Methamphetamine Negative Last Edit by Bernadette Hancock RN on 05/04/24 15:31 Urine Amphetamine Negative Last Edit by Bernadette Hancock RN on 05/04/24 15:31 Urine Benzodiazepine Positive Last Edit by Bernadette Hancock RN on 05/04/24 15:31 Urine Barbiturates Negative Last Edit by Bernadette Hancock RN on 05/04/24 15:31 Urine Methadone Negative Last Edit by Bernadette Hancock RN on 05/04/24 15:31 Urine Buprenorphine Positive Last Edit by Bernadette Hancock RN on 05/04/24 15:31 Urine Tricyclic Antidepressant Negative Last Edit by Bernadette Hancock RN on 05/04/24 15:31 Urine MDMA Negative Last Edit by Bernadette Hancock RN on 05/04/24 15:31 Urine Oxycodone Negative Last Edit by Bernadette Hancock RN on 05/04/24 15:31 Urine Phencyclidine Negative Last Edit by Bernadette Hancock RN on 05/04/24 15:31 Urine Propoxyphene Negative Last Edit by Bernadette Hancock RN on 05/04/24 15:31 PFSH Medical History Rotator cuff dysfunction Cirrhosis of liver without ascites Anemia Periumbilical abdominal pain Chronic constipation History of Helicobacter pylori infection Hypertension Depression History of drug abuse GERD (gastroesophageal reflux disease) Hepatitis C virus infection resolved after antiviral drug therapy Surgical History Hx of endoscopy History of colonoscopy H/O removal of cyst (~06/15/13) S/P excision of lipoma (~06/2014) H/O wisdom tooth extraction History of cholecystectomy (~2010) H/O inguinal hernia repair (~1989) Hx of tonsillectomy Family History (Updated 02/03/24 @ 10:46 by Millie Borrero) Father History of high blood pressure Mother History of depression Maternal Uncle Liver cancer Maternal Aunt Liver cancer Social History (Updated 02/03/24 @ 10:47 by Millie Borrero) Household Members: Family Household Members Other:: SISTER Unable to assess alcohol history related to: Unknown Alcohol intake: former Patient Tobacco Use Status: Current everyday Tobacco user Substance Use Type: Crack/Cocaine service: No Current occupational status: disabled Current occupation: right handed Assessment & Plan Assessment & Plan Orders: Orders AMB 14 Panel Urine Drug Screen Today Z51.81 - Encounter for therapeutic drug level monitoring Medications: New buprenorphine-naloxone 12-3 mg (Suboxone) 1 film buccal Q24H 14 ea 0RF
[2024-05-04 13:59] VITALS: BP 140/80; PULSE 77; RESP 19; O2SAT 98; BMI 19.2
--- OUTSIDE RECORDS SUMMARY | 2024-05-04 17:02 | XMS_ITS | Encounter Summary ---
Author Organization [employer] Address [address] [place] [address] Care Team Providers Care Chief Administrative Officer Name Role Phone Nelly Malik MD Primary Care Provide r Reason for Visit * Reason Comments Med Refill Encounter Details Date Type Department Care Team ([facility] st Contact Info) Description 04/26/2023 Refill [facility] MEDICINE [address] [place] [address] Soha Gómez MD [address] [place] [address] Primary hypertension Social History Tobacco Use Types Packs/Day Years Used Date Smoking Tobacco: Every Day Cigarettes Smokeless Tobacco: Never Alcohol Use Standard Drinks/Week Comments Never 0 (1 standard drink = 0.6 oz pur e alcohol) Depression Answer Date Recorded Patient Health Questionnaire-9 Score 10 04/13/2022 Housing Stability Answer Date Recorded What is your housing situation today? I have jacobvilla john 02/13/[address] you li ve. Do you have problems with any of the following? None of the above 02/13/2023 Food Insecurity Answer Date Recorded Within the past 12 months, y ou worried that your food would run out before you got money to buy more: Never True 02/13/2023 Within the past 12 months,th e food you bought just didn't last and you didn't have enough money to get more: Never True 02/2023 Transportation Answer Date Recorded In the past 12 months, has l ack of transportation kept you from medical appts, meetings, work or from getting things needed for daily living? Yes, it has kept me from medical appointments or getting medications. 01/14/2023 Utilities Answer Date Recorded In the past 12 months, has t he electric, gas, oil or water company threatened to shut off services in your home? No 02/13/2023 Depression Answer Date Recorded Patient Health Questionnaire-2 Score 4 04/13/2022 Sex and Gender Information Value Date Recorded Sex Assigned at Male 02/02/2022 10:18 AM EDT Legal Sex Male 10:18 AM EDT Gender Identity Male 02/02/2022 10:18 AM EDT Sexual Orientation Straight 02/02/2022 10 :18 AM EDT documented as of this encounter Plan of Treatment Not on file documented as of this encounter Visit Diagnoses Diagnosis Primary hypertension Unspecified essential hypertension documented in this encounter Additional Health Concerns Assessment Noted Time PHQ-9 Depression Total Score: 10 023 1:58 PM EST documented as of this encounter Care Teams Chief Administrative Officer Relationship Specialty Start Date End Date Nelly Malik MD [address] [place] [address] PCP - General Family Medicine 01/04/19 documented as of this encounter
--- OUTSIDE RECORDS SUMMARY | 2024-05-04 17:02 | XMS_ITS | Encounter Summary ---
Author Organization [email or web address] Address [address] [place] [address] [address] [place] [address] Care Team Providers Care Pharmacy Services Representative Name Role Phone Nelly Malik MD Primary Care Provide r Encounter Details Date Type Department Care Team (Latest Contact Info) Description 06/17/2020 Abstract [facility] CONVERSIONS Dental, Provider, DDS Social History Tobacco Use Types Packs/Day Years Used Date Smoking Tobacco: Never Assessed Sex and Gender Information Value Date Recorded Sex Assigned at Male 02/02/2022 10:18 AM EDT Legal Sex Male 10:18 AM EDT Gender Identity Male 02/02/2022 10:18 AM EDT Sexual Orientation Straight 02/02/2022 10 :18 AM EDT documented as of this encounter Plan of Treatment Not on file documented as of this encounter Visit Diagnoses Not on filedocumented in this encounter Care Teams Pharmacy Services Representative Relationship Specialty Start Date End Date Nelly Malik MD [address] [place] [address] PCP - General Family Medicine 01/04/19 documented as of this encounter
--- OUTSIDE RECORDS SUMMARY | 2024-05-04 17:02 | XMS_ITS | Encounter Summary ---
Author Organization [employer] Address [address] [facility] 7[address] [place] [address] Care Team Providers Care Sports Team Manager Name Role Phone Nelly Malik MD Primary Care Provide r Reason for Visit * Reason Onset Date Comments No Show 04/17/2024 Encounter Details Date Type Department Care Team ([facility] st Contact Info) Description 04/17/2024 Telephone [facility] [address] [place] [phone] Nelly Malik MD [address] [place] [address] No Show Social History Tobacco Use Types Packs/Day Years Used Date Smoking Tobacco: Every Day Cigarettes Smokeless Tobacco: Never Alcohol Use Standard Drinks/Week Comments Never 0 (1 standard drink = 0.6 oz pur e alcohol) Depression Answer Date Recorded Patient Health Questionnaire-9 Score 10 04/13/2022 Housing Stability Answer Date Recorded What is your housing situation today? I have jacob john 02/13/[address] you [...] AM EDT documented as of this encounter Miscellaneous Notes * Telephone Encounter - Kim Phillip - 04/17/2024 3:55 PM EST Pt no showed to appt on 04/17/24 documented in this encounter Plan of Treatment Not on file documented as of this encounter Visit Diagnoses Not on filedocumented in this encounter Additional Health Concerns Assessment Noted Time PHQ-9 Depression Total Score: 10 023 1:58 PM EST documented as of this encounter Care Teams Sports Team Manager Relationship Specialty Start Date End Date Nelly Malik MD [address] [place] [phone] PCP - General Family Medicine 01/04/19 documented as of this encounter
--- OUTSIDE RECORDS SUMMARY | 2024-05-04 17:02 | XMS_ITS | Clinical Summary ---
Author Organization [employer] Address [address] [facility] 7t [place] [address] Care Team Providers Care Transformation Specialist Name Role Phone Nelly Malik MD Primary Care Provide r Allergies Active Allergy Reactions Criticality Noted Date Comments Latex 02/05/2017 Medications * This document contains information received from the source organization and may not represent a complete record from that organization. albuterol 108 (90 Base) MCG/ACT inhaler Inhale 2 puffs every 4 (four) hours. 9 Active dicyclomine (Bentyl) 20 MG tablet TAKE 1 TABLET BY MOUTH FOUR TIMES A DAY NEEDED FOR CRAMPS 2 Active fluticasone (Flonase) 50 MCG/ACT nasal spray Administer 1-2 sprays into affected nostril(s) at bed time. 9 Active Amitiza 24 MCG capsule Take 24 mcg by mouth 2 times daily. 2 Active methadone (Dolophine) 10 MG tablet Take 5 tablets by mouth at bed time. Active nicotine (Nicoderm, Step 1) 21 MG/24HR patch Place 1 patch on the skin at bed time. 1 Active oxymetazoline (Afrin) 0.05 % nasal spray spray 2 spray by intranasal route 3 times every day for 3 days 0 Active sodium chloride ([place]) 0.65 % nasal spray Use 2 sprays q2 hours prn 0 Active simethicone (Mylicon,Gas-X) 125 MG capsule tyake 1 tab QID prn bloating 0 Active sodium chloride 0.9% (NS) 0.9 % flush Apply normal saline flush BID 0 Active polyethylene glycol, PEG, 3350 (Glycolax) 17 GM/SCOOP powderIndications :Constipation, unspecified constipation type Mix one scoop with water daily 507 g 3 3 Active hydrALAZINE (Apresoline) 10 MG tablet TAKE 1 TABLET BY MOUTH TWICE A DAY WITH FOOD 180 tablet 1 4 Active omeprazole (PriLOSEC) [address] capsuleIndication s:Gastroesophagea l reflux disease without esophagitis TAKE 1 CAPSULE BY MOUTH EVERY DAY BEFORE A MEAL 90 capsule 1 4 Active lisinopril 40 MG tabletIndications :Primary hypertension TAKE 1 TABLET BY MOUTH EVERY DAY IN THE MORNING 90 tablet 1 4 Active Multiple Vitamin (Daily-Naima Multivitamin) tabletIndications :Primary hypertension TAKE 1 TABLET BY MOUTH EVERY DAY IN THE MORNING 90 tablet 1 4 Active cyclobenzaprine (Flexeril) 10 MG tabletIndications :Chronic left shoulder pain TAKE 1 TABLET BY MOUTH THREE TIMES A DAY 90 tablet 4 Active nicotine (Nicoderm, Step 2) 14 MG/24HR patch Place 1 patch on the skin 1 (one) time each day at the same time. 30 patch 1 4 Active amLODIPine (Norvasc) 10 MG tabletIndications :HTN (hypertension), benign TAKE 1 TABLET BY MOUTH EVERY DAY IN THE MORNING 90 tablet 1 4 Active bismuth subsalicylate (Pepto Bismol) 262 MG chewable tabletIndications :Epigastric pain One tab po four times a day for 14 days 56 tablet 4 Active escitalopram (Lexapro) 10 MG tabletIndications :Mood disorder (CMS/HCC) TAKE 1 TABLET BY MOUTH EVERY DAY 30 tablet 1 4 Active ferrous sulfate 325 (65 Fe) MG EC tabletIndications :Anemia, unspecified type,Iron deficiency anemia, unspecified iron deficiency anemia type TAKE 1 TABLET BY MOUTH EVERY DAY. DO NOT CRUSH, CHEW OR SPLIT. 90 tablet 4 Active Active Problems Problem Noted Date Diagnosed Date Abdominal pain 02/28/2024 Assessment & Plan (02/28/2024 5:23 PM EST): PT with hx GERD and hJohnnypylori with abdominal pain since end of January. On omeprazole 40mg daily. Pt has had 7 lbs weight loss since Dec 2023. -GI referral placed 02/17/24 -H.pylori results pending -labs ordered but pt states he is not going to get them done -we discussed the importance of following up with GI specialist due to persistent pain and weight loss. Number given for him to call and check status of the appointment. -ER precautions discussed -appointment with PCP given Weight loss 02/28/2024 Erectile dysfunction 02/28/2024 Epigastric pain 02/17/2024 Assessment & Plan (02/17/2024 3:12 PM EST): Differential includes H. Pylori, diverticulosis, GI bleed, among others. ER labs reviewed. Note not available. Will check CBC, h.pylori and refer to GI. -ordered labs 02/17/24. -encouraged to go to ED, pt refused -ER precautions discussed Black tarry stools 02/17/2024 Assessment & Plan (02/17/2024 2:56 PM EST): Differential includes H. Pylori, diverticulosis, GI bleed, among others. -ordered labs 02/17/24. -encouraged to go to ED, pt refused. Hypercalcemia 12/14/2023 Chronic cough 12/08/2023 Assessment & Plan (12/08/2023 3:59 PM EDT): Pt has been seen at outside er, x-ray results reviewed, negative for pneumonia, persistent cough though pt reports it is improving somewhat on its own. Mucinex rx, repeat films today as left middle lobe with minimal aeration and pt is a custodial smoker. No stridor or wheeze noted. Weight loss, non-intentional 12/08/2023 Assessment & Plan (12/08/2023 3:55 PM EDT): Appetite changes are possibly secondary to methadone taper and viral illness, however low threshold for further work up, pt appears borderline cachectic. Opiate abuse, episodic 12/08/2023 Assessment & Plan (12/08/2023 3:57 PM EDT): Tapering off methadone denies cravings, aware of [facility] center, not interested in suboxone Bronchitis 12/07/2023 Hepatitis C virus infection resolved after antiviral drug therapy 12/07/2023 History of Helicobacter pylori infection 024 Periumbilical abdominal pain 12/07/2023 Rotator cuff dysfunction 12/07/2023 Tendonitis 12/07/2023 Cirrhosis of liver without ascites 12/07/2023 GERD (gastroesophageal reflux disease) Hypertension 12/07/2023 Periodontal disease 06/24/2022 Chronic left shoulder pain 04/13/2022 Mood disorder 04/13/2022 Assessment & Plan (12/29/2023 6:07 PM EDT): Restart esctialopram, plan to take 1/2 tablet ( 5 mg) for 1 week and then may increase to 1 tablet, follow up in 4 weeks with pcp Macular eruption 02/15/2018 Chronic hepatitis C 08/10/2017 Assessment & Plan (12/08/2023 4:04 PM EDT): Pt reports hx of hep c, unclear if has been treated, cmp and hep c with viral load ordered Anemia 06/07/2017 Assessment & Plan (12/29/2023 6:06 PM EDT): Referral to heme onc Chronic constipation 06/07/2017 Gastroesophageal reflux disease 07/21/2013 History of cholecystectomy 06/03/2012 Acquired deviated nasal septum 12/25/2011 Cirrhosis of liver 12/25/2011 Eczema 12/25/2011 HTN (hypertension) 12/25/2011 Opioid dependence 12/25/2011 Tobacco dependence syndrome 12/25/2011 Assessment & Plan (12/08/2023 3:56 PM EDT): Has been cutting down during illness. Encouraged continued reduction, nicotine patches sent Encounters Date Type Department Care Team Description 05/04/2024 Refill [facility] [address] [place] [address] Nelly Malik MD HTN (hypertension), benign; Primary hypertension 04/17/[address] [phone] Nelly Malik MD No Show 03/01/[address] [address] Ana Lilia Sheehan RN Results 02/28/2024 5:00 PM EST Office Visit [facility] [address] [address] Codie Back MD Abdominal pain, unspecified abdominal location (Primary Dx); Weight loss; Erectile dysfunction, unspecified erectile dysfunction type 02/28/2024 [facility] [address] [address] Nelly Malik MD Mood disorder ([facility]); Anemia, unspecified type; Iron deficiency anemia, unspecified iron deficiency anemia type 02/17/2024 1:40 PM EST [facility] [address] [address] Codie Back MD Epigastric pain (Primary Dx); Black tarry stools 02/17/2024 Telephone [facility] [address] [address] Gail Jett, [employer] triage 02/17/[address] [address] Ana Lilia Sheehan RN Walk in triage from Last 3 Months Immunizations Name Administration Dates Next Due Hep A, Adult 12/13/2006 Influenza injectable quadrivalent preservative f ree 05/24/2013 Influenza, Split (incl. purified surface antigen ) 12/25/2011 Pneumococcal Polysaccharide PPSV23 12/18/2009 Td (adult), 5 Lf tetanus tox oid, preservative free, adsorbed 12/01/2012 Tdap 06/07/2017 Social History Tobacco Use Types Packs/Day Years Used Date Smoking Tobacco: Every Day Cigarettes Smokeless Tobacco: Never Alcohol Use Standard Drinks/Week Comments Never 0 (1 standard drink = 0.6 oz pur e alcohol) Depression Answer Date Recorded Patient Health Questionnaire-9 Score 10 04/13/2022 Housing Stability Answer Date Recorded What is your housing situation today? I have jacob sing 02/13/[address] you li [...] Orientation Straight 02/02/2022 10 :18 AM EDT Last Filed Vital Signs Vital Sign Reading Time Taken Comments Blood Pressure 154/99 02/28/2024 4:47 PM EST Pulse 102 02/28/2024 4:47 PM EST Temperature 36.2 ??C (97.1 ??F) 02/28/2024 4:47 PM ES T Respiratory Rate 17 02/28/2024 4:47 PM EST Oxygen Saturation 98% 02/28/2024 4:47 PM EST Inhaled Oxygen Concentration - - Weight 56.2 kg (123 lb 12.8 oz) 02/28/2024 4:47 PM EST Height 175.3 cm (5' 9 ) 02/17/2024 1:56 PM EST Body Mass Index 18.28 02/17/2024 1:56 PM EST Plan of Treatment Health Maintenance Due Date Last Done Comments CT Colonography 1963 Dental Prophylaxis 1963 FIT DNA/Cologuard 1963 FIT 1963 FOBT 1963 Sigmoidoscopy 1963 Alcohol/Substance Use Screening 1975 Hepatitis A Vaccines (2 of 2 - Risk 2-dose series) 06/13/2007 12/13/2006 Pneumococcal Vaccine: 50+ Years (2 of 2 - PCV) 12/18/2010 12/18/2009 Zoster Vaccines (1 of 2) 2013 Depression Monitoring (PHQ-9) 10/11/2022, 04/13/2022 Colonoscopy 11/15/2022 11/15/2017 Colorectal Cancer Screening 11/15/2022 Dental Oral Exam 12/26/2022 06/24/2022 Depression Screening 04/13/2023 04/13/2022, 04/13/2022 SDOH Screening 04/13/2023 04/13/2022 Hepatitis B Vaccines (1 of 3 - Risk 3-dose series) 2023 RSV Patients and Patients Aged 60 years or older (1 - Risk 60-74 years 1-dose series) 2023 Dental X-Ray: Bitewings 06/26/2023 06/24/2022 COVID-19 Vaccine (2 - 2023-2 5 season) 2023 07/15/2020 Influenza Vaccine (#1) 2023 4, 12/25/2011 Diabetes: Hemoglobin A1C 01/26/2025 024, 12/08/2023, 04/23/2020 Tobacco Screening 02/27/2025 02/28/2024 Dental X-Ray: Full Mouth 06/25/2025 06/24/2022 Lipid Panel 04/13/2027 04/13/2022, 04/23/2020 DTaP/Tdap/Td Vaccines (2 - T d or Tdap) 06/08/2027 06/07/2017, 12/01/2012 HIB Vaccines Aged Out 11/28/2010 No longer eligi ble based on patient's age to complete this topic HIV Screening Completed 01/27/2024, 01/27/2024, 12/08/2023 HPV Vaccines Aged Out No longer eligi ble based on patient's age to complete this topic IPV Vaccines Aged Out No longer eligi ble based on patient's age to complete this topic Meningococcal Vaccine Aged Out No dante david eligible based on patient's age to complete this topic RSV under 20 months Aged Out No longe r eligible based on patient's age to complete this topic Rotavirus Vaccines Aged Out No longer eligible based on patient's age to complete this topic Procedures Procedure Name Priority Date/Time Associated Diagnosis Comments HELICOBACTER PYLORI AG, EIA, STOOL Routine 02/27/2024 11:00 PM EST Epigastric pain HIV 1/2 ANTIGEN/ANTIBODY, FOURTH GENERATION W/RFL Routine 01/27/2024 10:15 AM EDT HEMOGLOBIN A1C Routine 01/27/2024 10:15 AM EDT DIAGNOSTIC - DIAGNOSTIC IMAGING - INTRAORAL - COMPREHENSIVE SERIES OF RADIOGRAPHIC IMAGES Routine 06/24/2022 8:00 AM EDT PERIODIC ORAL EVALUATION - ESTABLISHED PATIENT Routine 06/24/2022 8:00 AM EDT LIPID PANEL, STANDARD Routine 04/13/2022 2:25 PM EST HM COLONOSCOPY Routine 11/15/2017 from Last 3 Months or Most Recently Relevant to Health Maintenance Results * Helicobacter pylori??Antigen, EIA, Stool (02/27/2024 11:00 PM EST) H pylori Ag Stool SEE NOTE [facility] Comment:HELICOBACTER PYLORI AG, EIA, STOOL Micro Number: [id number] Test Status: Final Specimen Source: Stool Specimen Quality: Adequate H.pylori Ag: Not Detected Antimicrobials, proton pump inhibitors, and bismuth preparations inhibit H. pylori and ingestion up to two weeks prior to testing may cause false negative results. If clinically indicated the test should be repeated on a new specimen obtained two weeks after discontinuing treatment. Reference Range: Not DetectedTHIS TEST WAS PERFORMED AT:[employer] [facility] [place] [phone] GREGORY MD Stool Rectal contents / Unknown 02/27/2024 11:00 PM EST 02/28/2024 10:49 AM EST Codie Back MD LAB BODY FLUIDS AND STOOLS ORDERABLES Final Result [facility] [address] [place] [phone] [phone] * HIV-1/2 Antigen and Antibodies, Fourth Generation, with Reflexes (01/27/2024 10:15 AM EDT) HIV AB/AG Nonreactive Nonreactive [facility] Comment:HIV-1 p24 Ag and/or HIV-1/HIV-2 Ab not detected.A test result that is nonreactive does not exclude thepossibility of exposure to or infection with HIV-1 and/orHIV-2. Nonreactive results in this assay for individualswith prior exposure to HIV-1 and/or HIV-2 may be due toantigen and antibody levels that are below the limit ofdetection of this assay.The [employer] HIV Ag/Ab Combo assay result andsupplemental assay results should be interpreted inconjunction with the patient's clinical presentation,history and other laboratory results. If the results areinconsistent with clinical evidence, additional testing issuggested to confirm the result. 01/27/2024 10:1 5 AM EDT 01/27/2024 10:59 AM EDT us Generic External Data Provider LAB BLOOD ORDERAB LES Final Result Performing Organization Address [facility] Co de Phone Number [facility] [address] [place] [address] [phone] * Hemoglobin A1c (01/27/2024 10:15 AM EDT) Hemoglobin A1c 5.7 <6.0 % [facility] Comment:Hemoglobin A1C Refer ence Range Adults: 4.8 - 6.0 % Non diabetic: < 6.0 % Goal: < 7.0 %Additional Action Suggested: > 8.0 %Note: Hemoglobin A1c results are invalid for patients with abnormal amounts of HbF. Blood transfusions may impact the HbA1c concentration in the patient sample. Estimated Average Glucose 117 mg/dL [facility] Comment:eAG = Estimated ave rage glucose which is %A1C expressed asaverage glucose, using the formula of the C9N-[id number] Glucose study (ADAG), Diabetes Care, Vol.31,#8,Nov. 2007 01/27/2024 10:1 5 AM EDT 01/27/2024 10:59 AM EDT us Generic External Data Provider LAB BLOOD ORDERAB LES Final Result [facility] [address] [place] [phone] * (ABNORMAL) Lipid Panel, Standard (04/13/2022 2:25 PM EST) [facility] Cholesterol, Total 133 <200 mg/dL [facility] HDL Cholesterol 39(L) > OR = 40 mg/dL [facility] Triglycerides 126 <150 mg/dL [facility] LDL Cholesterol 73 mg/dL (calc) [facility] Comment: Reference range: <100 Desirable range <100 mg/dL for primary prevention; ?? <70 mg/dL for patients with CHD or diabetic patients with > or = 2 CHD risk factors. LDL-C is now calculated using the Marito-Toledo calculation, which is a validated novel method providing better accuracy than the Friedewald equation in the estimation of LDL-C. Marito ORTIZ et al. SHAMA. 2013;310(19): 1604-3075 (http://education.[employer].Wholesome Pets/faq/BZB728) Chol/HDLC Ratio 3.4 <5.0 (calc) [facility] Non-HDL Cholesterol 94 <130 mg/dL (calc) [facility] Comment: For patients with diabetes plus 1 major ASCVD risk factor, treating to a non-HDL-C goal of <100 mg/dL (LDL-C of <70 mg/dL) is considered a therapeutic option. 04/13/2022 2:25 PM EST 04/13/2022 2:26 PM EST Narrative [facility] - 04/14/2022 2:17 AM EST FASTING:NO FASTING: NO us Soha Gómez MD LAB BLOOD ORDERABLES Final Res ult [facility] [address] [facility], 3rd [address], [place] [address] [facility] [address], ([address]) [place] [address] * Hm Colonoscopy (11/15/2017) Historical Provider HEALTH MAINTENANCE Final Result from Last 3 Months or Most Recently Relevant to Health Maintenance Insurance [facility] C3 DENTAL-[facility] MEDICAID STAND ADULT Care Teams Transformation Specialist Relationship Specialty Start Date End Date Nelly Malik MD [address] [place] [phone] PCP - General Family Medicine 01/04/19
--- OUTSIDE RECORDS SUMMARY | 2024-05-04 17:02 | XMS_ITS | Encounter Summary ---
Author Organization [employer] Address [address] [facility] [address] [place] [address] Care Team Providers Care Dry Kiln Burner Name Role Phone Nelly Malik MD Primary Care Provide r Encounter Details Date Type Department Care Team (Late st Contact Info) Description 04/22/2022 Orders Only [facility] MEDICINE [address] [place] [address] Soha Gómez MD [address] [place] [address] Acute kidney injury (CMS/HCC) (Primary Dx) Social History Tobacco Use Types Packs/Day Years Used Date Smoking Tobacco: Every Day Cigarettes Smokeless Tobacco: Never Alcohol Use Standard Drinks/Week Comments Never 0 (1 standard drink = 0.6 oz pur e alcohol) Depression Answer Date Recorded Patient Health Questionnaire-9 Score 10 04/13/2022 Depression Answer Date Recorded Patient Health Questionnaire-2 Score 4 04/13/2022 Sex and Gender Information Value Date Recorded Sex Assigned at Male 02/02/2022 10:18 AM EDT Legal Sex Male 10:18 AM EDT Gender Identity Male 02/02/2022 10:18 AM EDT Sexual Orientation Straight 02/02/2022 10 :18 AM EDT COVID-19 Exposure Response Date Recorded In the last 10 days, have yo u been in contact with someone who was confirmed or suspected to have Coronavirus/COVID-19? No / Unsure 04/13/2022 1:30 PM EST documented as of this encounter Plan of Treatment Scheduled Orders Name Type Priority Associated Diagnoses Orde r Schedule Basic Metabolic Panel Lab Routine Acute kidney injury (CMS/HCC) Expected: 04/22/2022 (Approximate), Expires: 04/22/2023 documented as of this encounter Procedures Procedure Name Priority Date/Time Associated Diagnosis Comments COVID-19 ID NOW (AMARO) Routine 11/29/2022 11:16 AM EDT Acute kidney injury (CMS/HCC) INFLUENZA A B2 ID NOW (AMARO) Routine 11/29/2022 10:46 AM EDT Acute kidney injury (CMS/HCC) CBC WITH AUTO DIFFERENTIAL Routine 11/29/2022 10:46 AM EDT Acute kidney injury (CMS/HCC) BASIC METABOLIC PANEL Routine 11/29/2022 10:46 AM EDT Acute kidney injury (CMS/HCC) documented in this encounter Results * COVID-19 ID NOW (AMARO) (11/29/2022 11:16 AM EDT) IDNOW SERIAL# [id number] [facility] COVID-19 TEST Negative Negative [facility] COVID-19 NOTE See Note [facility] Comment: Results are for the identification of SARS-CoV2 RNA. TheSARS-CoV2 RNA is generally detectable in respiratory samplesduring the acute phase of infection. Positive results areindicative of the presence of SARS-CoV-2 RNA; clinicalcorrelation with patient history and other diagnosticinformation is necessary to determine patient infectionstatus. Positive results do not rule out bacterial infectionor co- infection with other viruses.Testing facilities within the [facility] and itsterritories are required to report all positive results tothe appropriate public health authorities.Negative results should be treated as presumptive and, ifinconsistent with clinical signs and symptoms or necessaryfor patient management, should be tested with differentauthorized or cleared molecular tests. Negative results donot preclude SARS-CoV2 RNA infection and should not be usedas the sole basis for patient management decisions. Negativeresults should be considered in the context of a patient'srecent exposures, history and the presence of clinical signsand symptoms consistent with COVID-19.This test has been authorized by the FDA under an EmergencyUse Authorization (EUA) for use by authorized laboratories.Testing performed on the Aamro ID NOW utilizing NAAT. 11/29/2022 11:1 6 AM EDT 11/29/2022 11:19 AM EDT Result [facility] Provider LAB MOLECULAR DIAGNOSTICS ORDERABLES Final Result Performing Organization Address [facility] de Phone Number [facility] [address] [place] [address] [phone] * Influenza A B2 ID NOW (Amaro) (11/29/2022 10:46 AM EDT) Pathologist [facility] IDNOW SERIAL# [id number] [facility] Influenza A Negative Negative [facility] Influenza B2 Negative Negative [facility] Influenza A B2 Note See Note [facility] Comment:The Amaro ID NOW In fluenza A B2 test is used for thequalitative detection of influenza A and B from patientswith signs and symptoms of respiratory infection.Negative results do not preclude influenza virus infectionand should not be used as the sole basis for diagnosis,treatment or other patient management decisions.There is a risk of false negative results due to thepresence of variants in the viral targets of the assay, lowlevels of virus in the specimen and co- infection withRespiratory Syncytial Virus. 11/29/2022 10:4 6 AM EDT 11/29/2022 10:49 AM EDT Result [facility] Provider LAB MICROBIOLOGY - GENERAL ORDERABLES Final Result Performing Organization Address [facility] de Phone Number [facility] [address] [place] [address] [phone] * (ABNORMAL) Basic Metabolic Panel (11/29/2022 10:46 AM EDT) Sodium 143 135 - 145 mmol/L [facility] Potassium 3.4 3.3 - 5.1 mmol/L [facility] Chloride 106 96 - 108 mmol/L [facility] Carbon Dioxide 25 22 - 29 mmol/L [facility] Anion Gap 15 12 - 20 [facility] Urea Nitrogen (BUN) 26(H) 9 - 16 mg/dL [facility] Creatinine, Serum 1.18 0.5 - 1.4 mg/dL [facility] Creatinine Clr Calc Pharmacy 67.4 [facility] Comment:eGFR (calculated fro m the MDRD study equation) and eCrCl(calculated from the Cockcroft-Gault equation) are based ondifferent parameters and may not yield comparable results.If eCrCl result is absurd, please check patient'sheight/weight. Estimated Glomerular Filt Rate >60 [facility] Comment:NOTE: For -Am erican individuals, multiply the result by 1.210.Chronic Kidney Disease: Estimated GFR < 60 mL/min/1.75p5Cbilww Kidney Disease: Estimated GFR < 15 mL/min/1.73m2 Glucose 113 60 - 115 mg/dL [facility] Calcium 10.1 8.4 - 10.2 mg/dL [facility] 11/29/2022 10:4 6 AM EDT 11/29/2022 10:49 AM EDT [facility] External Provider LAB BLO OD ORDERABLES Final Result [facility] [address] [place] [phone] * (ABNORMAL) CBC auto differential (11/29/2022 10:46 AM EDT) White Blood Count 6.7 4.8 - 10.8 X10*3/uL [facility] Red Blood Count 4.06(L) 4.60 - 5.80 X10*6/uL [facility] Hemoglobin 11.4(L) 14.0 - 18.0 g/dl [facility] Hematocrit 34.0(L) 42.0 - 52.0 % [facility] Mean Corpuscular Volume 83.7 80.0 - 98.0 fL [facility] Mean Corpuscular Hemoglobin 28.1 27.0 - 33.0 pg [facility] Mean Corpuscular HGB Conc 33.5 31.0 - 36.0 g/dl [facility] Red Cell Distribution Width 13.8 11.0 - 16.0 % [facility] Platelet Count 126(L) 160 - 400 X10*3/uL [facility] Mean Platelet Volume 10.8 9.4 - 12.4 fL [facility] Neutrophils Percent Auto 76.2(H) 45 - 73 % [facility] Imm Gran Pct Auto 0.3 0.0 - 0.4 % [facility] Lymphocytes Percent Auto 16.1(L) 20 - 40 % [facility] Monocytes Percent Auto 6.3 2 - 11 % [facility] Eosinophils Percent Auto 1.0 0 - 4 % [facility] Basophils Percent Auto 0.1 0 - 2 % [facility] NRBC Pct Auto 0.0 0.0 - 0.2 /100WBC [facility] Neutrophils Absolute Auto 5.1 2.0 - 8.3 x10*3/uL [facility] Imm Gran Abs Auto 0.02 0.00 - 0.03 X10*3/uL [facility] Lymphocytes Absolute Auto 1.1(L) 1.2 - 4.9 X10*3/uL [facility] Monocytes Absolute Auto 0.4 0.1 - 1.2 X10*3/uL [facility] Eosinophils Absolute Auto 0.1 0.0 - 0.4 X10*3/uL [facility] Basophils Absolute Auto 0.0 0.0 - 0.2 X10*3/uL [facility] NRBC Abs Auto 0.000 0.0 - 0.012 X10*3/uL [facility] 11/29/2022 10:4 6 AM EDT 11/29/2022 10:49 AM EDT [facility] External Provider LAB BLO OD ORDERABLES Final Result [facility] [address] [place] [phone] documented in this encounter Visit Diagnoses Diagnosis Acute kidney injury (CMS/HCC)- Primary documented in this encounter Additional Health Concerns Assessment Noted Time PHQ-9 Depression Total Score: 10 023 1:58 PM EST documented as of this encounter Care Teams Dry Kiln Burner Relationship Specialty Start Date End Date Nelly Malik MD [address] [place] [address] PCP - General Family Medicine 01/04/19 documented as of this encounter
--- OUTSIDE RECORDS SUMMARY | 2024-05-04 17:03 | XMS_ITS | Encounter Summary ---
Author Organization [employer] Address [address] [facility] [address] [place] [address] Care Team Providers Care Livestock Buyer Name Role Phone Nelly Malik MD Primary Care Provide r Reason for Visit * Reason Comments Med Refill Encounter Details Date Type Department Care Team ([facility] st Contact Info) Description 01/02/2023 Refill [facility] MEDICINE [address] [place] [address] Soha Gómze MD [address] [place] [address] Primary hypertension Social History Tobacco Use Types [...] documented as of this encounter Care Teams Livestock Buyer Relationship Specialty Start Date End Date Nelly Malik MD [address] [place] [address] PCP - General Family Medicine 01/04/19 documented as of this encounter
--- OUTSIDE RECORDS SUMMARY | 2024-05-04 17:03 | XMS_ITS | Encounter Summary ---
Author Organization [employer] Address [address] [facility] [address] [place] [address] Care Team Providers Care Spud Sorter Name Role Phone Nelly Malik MD Primary Care Provide r Encounter Details Date Type Department Care Team (Late st Contact Info) Description 12/11/2022 Orders Only [facility] MEDICINE [address] [place] [address] Provider, MD Cherri Social History Tobacco Use Types Packs/Day Years [...] on file documented as of this encounter Procedures Procedure Name Priority Date/Time Associated Diagnosis Comments HIGH SENSITIVITY TROPONIN I Routine 06/02/2023 1:50 PM EST CBC WITH AUTO DIFFERENTIAL Routine 06/02/2023 1:50 PM EST PROTHROMBIN TIME-INR Routine 06/02/2023 1:50 PM EST LIPASE Routine 06/02/2023 1:50 PM EST COMPREHENSIVE METABOLIC PANEL Routine 06/02/2023 1:50 PM EST COLONOSCOPY Routine 11/15/2017 documented in this encounter Results * High Sensitivity Troponin I (06/02/2023 1:50 PM EST) [facility] TROPONIN I HIGH SENSITIVITY 2.8 <3.5 - 35.0 ng/L [facility] Comment:The Abreu high sens itivity Troponin-I results should beused in conjunction with other diagnostic information suchas ECG, clinical observations and information, and patientsymptoms to aid in the diagnosis of [place]. 06/02/2023 1:50 PM EST 06/02/2023 1:53 PM EST Generic External Data Provider LAB BLOOD ORDERAB LES Final Result Performing Organization Address [facility]/ZIP Co de Phone Number [facility] [address] [place] [phone] * Lipase (06/02/2023 1:50 PM EST) [facility] Lipase 19 8 - 78 U/L [facility] 06/02/2023 1:50 PM EST 06/02/2023 1:53 PM EST [facility] External Data Provider LAB BLOOD ORDERAB LES Final Result Performing Organization Address [facility]/ZIP Co de Phone Number [facility] [address] [place] [phone] * (ABNORMAL) Comprehensive Metabolic Panel (06/02/2023 1:50 PM EST) [facility] Sodium 140 135 - 145 mmol/L [facility] Potassium 3.9 3.3 - 5.1 mmol/L [facility] Chloride 107 96 - 108 mmol/L [facility] Carbon Dioxide 27 22 - 29 mmol/L [facility] Anion Gap 10(L) 12 - 20 [facility] Urea Nitrogen (BUN) 39(H) 9 - 16 mg/dL [facility] Creatinine, Serum 1.20 0.5 - 1.4 mg/dL [facility] Creatinine Clr Calc Pharmacy 65.4 [facility] Comment:eGFR (calculated fro m the MDRD study equation) and eCrCl(calculated from the Cockcroft-Gault equation) are based ondifferent parameters and may not yield comparable results.If eCrCl result is absurd, please check patient'sheight/weight. Estimated Glomerular Filt Rate >60 [facility] Comment:NOTE: For -Am erican individuals, multiply the result by 1.210.Chronic Kidney Disease: Estimated GFR < 60 mL/min/1.00x6Iuuxkd Kidney Disease: Estimated GFR < 15 mL/min/1.73m2 Glucose 86 60 - 115 mg/dL [facility] Calcium 10.1 8.4 - 10.2 mg/dL [facility] Bilirubin, Total 0.7 0.0 - 1.0 mg/dL [facility] Aspartate Amino Transferase 31 5 - 37 U/L [facility] Alanine Aminotransferase 26 0 - 40 U/L [facility] Total Protein 7.7 6.5 - 8.0 g/dL [facility] Albumin Level 4.6 3.5 - 5.0 g/dL [facility] Alkaline Phosphatase 77 39 - 117 U/L [facility] 06/02/2023 1:50 PM EST 06/02/2023 1:53 PM EST us Generic External Data Provider LAB BLOOD ORDERAB LES Final Result [facility] [address] [place] [phone] * Prothrombin Time-INR (06/02/2023 1:50 PM EST) Prothrombin Time 13.0 11.1 - 13.3 SEC [facility] INTERNATIONAL NORM RATIO 1.1 0.9 - 1.1 [facility] Comment:INTERNATIONAL NORMAL IZED RATIO (INR) REFERENCE RANGES Reference RangeFor patients not on anticoagulant therapy: 0.9 - 1.1INR ranges for oral anticoagulanttherapy:For prevention and treatment of venous thrombosis and pulmonary embolism: 2.0 - 3.0For acute myocardial infarction with aspirin therapy: 2.0 - 3.0For acute myocardial infarction without aspirin therapy: 3.0 - 4.0For patients with mechanical prosthetic heart valves: 2.5 - 3.5 06/02/2023 1:50 PM EST 06/02/2023 1:53 PM EST us Generic External Data Provider LAB BLOOD ORDERAB LES Final Result [facility] [address] [place] [phone] * (ABNORMAL) CBC auto differential (06/02/2023 1:50 PM EST) White Blood Count 6.6 4.8 - 10.8 X10*3/uL [facility] Red Blood Count 3.96(L) 4.60 - 5.80 X10*6/uL [facility] Hemoglobin 11.1(L) 14.0 - 18.0 g/dl [facility] Hematocrit 33.4(L) 42.0 - 52.0 % [facility] Mean Corpuscular Volume 84.3 80.0 - 98.0 fL [facility] Mean Corpuscular Hemoglobin 28.0 27.0 - 33.0 pg [facility] Mean Corpuscular HGB Conc 33.2 31.0 - 36.0 g/dl [facility] Red Cell Distribution Width 13.9 11.0 - 16.0 % [facility] Platelet Count 154(L) 160 - 400 X10*3/uL [facility] Mean Platelet Volume 10.8 9.4 - 12.4 fL [facility] Neutrophils Percent Auto 70.1 45 - 73 % [facility] Imm Gran Pct Auto 0.5(H) 0.0 - 0.4 % [facility] Lymphocytes Percent Auto 22.4 20 - 40 % [facility] Monocytes Percent Auto 6.5 2 - 11 % [facility] Eosinophils Percent Auto 0.3 0 - 4 % [facility] Basophils Percent Auto 0.2 0 - 2 % [facility] NRBC Pct Auto 0.0 0.0 - 0.2 /100WBC [facility] Neutrophils Absolute Auto 4.7 2.0 - 8.3 x10*3/uL [facility] Imm Gran Abs Auto 0.03 0.00 - 0.03 X10*3/uL [facility] Lymphocytes Absolute Auto 1.5 1.2 - 4.9 X10*3/uL [facility] Monocytes Absolute Auto 0.4 0.1 - 1.2 X10*3/uL [facility] Eosinophils Absolute Auto 0.0 0.0 - 0.4 X10*3/uL [facility] Basophils Absolute Auto 0.0 0.0 - 0.2 X10*3/uL [facility] NRBC Abs Auto 0.000 0.0 - 0.012 X10*3/uL [facility] 06/02/2023 1:50 PM EST 06/02/2023 1:53 PM EST us Generic External Data Provider LAB BLOOD ORDERAB LES Final Result [facility] [address] [place] [phone] * Hm Colonoscopy (11/15/2017) Historical Provider HEALTH MAINTENANCE Final Result documented in this encounter Visit Diagnoses Not on filedocumented in this encounter Additional Health Concerns Assessment Noted Time PHQ-9 Depression Total Score: 10 023 1:58 PM EST documented as of this encounter Care Teams Spud Sorter Relationship Specialty Start Date End Date Nelly Malik MD [address] [place] [address] PCP - General Family Medicine 01/04/19 documented as of this encounter
== END 2024-05-04 13:56 | disposition home or self-care (01) ==
PROVIDERS: PCP Internal Medicine; Visit Provider Nurse Practitioner Psychiatric/Mental Health
DX: Z51.81 Encounter for therapeutic drug level monitoring (principal)

== ENCOUNTER → 2024-05-04 13:12 | Outpatient (BNVA) | payer MEDICAID, SELFPAY | PROVIDERS: PCP Internal Medicine; Visit Provider Nurse Practitioner Psychiatric/Mental Health | DX: F11.90 Opioid use, unspecified, uncomplicated (principal); Z51.81 Encounter for therapeutic drug level monitoring | CPT/HCPCS: 80307; 99212 ==

== ENCOUNTER 2024-05-19 04:59 | Emergency (ER) | payer MEDICAID, SELFPAY ==
[2024-05-19 05:02] VITALS: BP 158/79; PULSE 75; RESP 16; TEMP 36.4; O2SAT 98; BMI 19.9
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
[2024-05-19] MEDS: Lidocaine/Racepinep/Tetracaine 3 ML GEL.PF.APP 1 ML TOPICAL (07:13)
[2024-05-19] MEDS: Diphth,Pertus(ACell),Tet Adult 0.5 ML SYRINGE IM (07:14)
[2024-05-19 08:42] VITALS: BP 152/80; PULSE 67; RESP 18; O2SAT 99
[2024-05-19 08:56] VITALS: BP 152/80; PULSE 67; RESP 18; TEMP 36.8; O2SAT 99
== END 2024-05-19 08:56 | disposition home or self-care (01) ==
PROVIDERS: Emergency Provider Emergency Medicine
DX: S01.511A Laceration without foreign body of lip, initial encounter (principal); R51.9 Headache, unspecified; Y04.2XXA Assault by strike against or bumped into by another person, initial encounter; Y93.89 Activity, other specified; Y92.89 Other specified places as the place of occurrence of the external cause; Y99.8 Other external cause status
CPT/HCPCS: 12051; 90471; 90715; 99284

== ENCOUNTER 2024-06-01 15:45 | Outpatient (AMB) | payer MEDICAID, SELFPAY ==
--- NOTE | 2024-06-01 15:49 | A.OFFVISCC_ITS ---
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--has to take the whole course again Has been attending rastafari-- supportive Review of Systems Const Reports as per HPI and Reports no additional complaints Physical Exam Const General: cooperative, healthy appearing and well groomed Nutritional Appearance: thin Orientation/consciousness: patient oriented x3 Limitations: no limitations Neuro General: patient oriented x3 Psych Appearance: well kempt Speech and movement: Normal speech and movement present Affect: normal affect Attitude: cooperative Thought process: Normal thought process present Thought content: Normal thought content present Insight: Good insight present (Psych) Judgement: Good judgement present (Psych) [facility] Medical History Rotator cuff dysfunction Cirrhosis of liver without ascites Anemia Periumbilical abdominal pain Chronic constipation History of Helicobacter pylori infection Hypertension Depression History of drug abuse GERD (gastroesophageal reflux disease) Hepatitis C virus infection resolved after antiviral drug therapy Surgical History Hx of endoscopy History of colonoscopy H/O removal of cyst (~06/15/13) S/P excision of lipoma (~06/2014) H/O wisdom tooth extraction History of cholecystectomy (~2010) H/O inguinal hernia repair (~1989) Hx of tonsillectomy Family History Father History of high blood pressure Mother History of depression Maternal Uncle Liver cancer Maternal Aunt Liver cancer Social History Household Members: Family Household Members Other:: SISTER Unable to assess alcohol history related to: Unknown Alcohol intake: former Patient Tobacco Use Status: Current everyday Tobacco user Substance Use Type: Crack/Cocaine service: No Current occupational status: disabled Current occupation: right handed Assessment & Plan Assessment & Plan (1) Opioid use disorder: Code(s): F11.90 - Opioid use, unspecified, uncomplicated Category: Medical Plan: * continue suboxone at current dose * follow up 3 weeks Medications: Refilled buprenorphine-naloxone 12-3 mg (Suboxone) 1 film buccal Q24H 21 ea 1RF
--- OUTSIDE RECORDS SUMMARY | 2024-06-01 19:05 | XMS_ITS | Encounter Summary ---
Author Organization [employer] Address [address] [place] [address] Care Team Providers Care Picking Tech Name Role Phone Nelly Malik MD Primary Care Provide r Reason for Visit * Reason Comments Med Refill Encounter Details Date Type Department Care Team ([facility] st Contact Info) Description 05/27/2024 Refill [facility] [address] [place] [address] Nelly Malik MD [address] [place] [address] Anemia, unspecified type; Iron deficiency anemia, unspecified iron deficiency anemia type Social History Tobacco Use Types Packs/Day Years [...] as of this encounter Plan of Treatment Upcoming Encounters Date Type Department Care Team (Late st Contact Info) Description 08/25/2024 3:15 PM EDT Office Visit [facility] [address] [place] [phone] Nelly Malik MD [address] [place] [phone] documented as of this encounter Visit Diagnoses Diagnosis Anemia, unspecified type Iron deficiency anemia, unspecified iron deficiency anemia type documented in this encounter Additional Health Concerns Assessment Noted Time PHQ-9 Depression Total Score: 10 023 1:58 PM EST documented as of this encounter Care Teams Picking Tech Relationship Specialty Start Date End Date Nelly Malik MD [address] [place] [id number] PCP - General Family Medicine 01/04/19 documented as of this encounter
--- OUTSIDE RECORDS SUMMARY | 2024-06-01 19:05 | XMS_ITS | Clinical Summary ---
Author Organization [facility] Address [address] [facility] [address] [place] [address] Care Team Providers Care Express Manager Name Role Phone Nelly Malik MD Primary Care Provide r Allergies Active Allergy Reactions Criticality Noted Date Comments Latex 02/05/2017 Medications * This document contains information received from the source organization and may not represent a complete record from that organization. albuterol 108 (90 Base) MCG/ACT inhaler Inhale 2 puffs every 4 (four) hours. 04/27/19 19 Active dicyclomine (Bentyl) 20 MG tablet TAKE 1 TABLET BY MOUTH FOUR TIMES A DAY NEEDED FOR CRAMPS 11/30/19 22 Active fluticasone (Flonase) 50 MCG/ACT nasal spray Administer 1-2 sprays into affected nostril(s) at bed time. 05/24/19 19 Active Amitiza 24 MCG capsule Take 24 mcg by mouth 2 times daily. 03/19/20 22 Active methadone (Dolophine) 10 MG tablet Take 5 tablets by mouth at bed time. Active nicotine (Nicoderm, Step 1) 21 MG/24HR patch Place 1 patch on the skin at bed time. 10/16/19 21 Active oxymetazoline (Afrin) 0.05 % nasal spray spray 2 spray by intranasal route 3 times every day for 3 days 02/02/20 20 Active simethicone (Mylicon,Gas-X) 125 MG capsule tyake 1 tab QID prn bloating 02/02/20 20 Active sodium chloride 0.9% (NS) 0.9 % flush Apply normal saline flush BID 02/02/20 20 Active polyethylene glycol, PEG, 3350 (Glycolax) 17 GM/SCOOP powderIndication s:Constipation, unspecified constipation type Mix one scoop with water daily 507 g 3 04/13/19 23 Active cyclobenzaprine (Flexeril) 10 MG tabletIndication s:Chronic left shoulder pain TAKE 1 TABLET BY MOUTH THREE TIMES A DAY 90 tablet 11/24/19 24 Active bismuth subsalicylate (Pepto Bismol) 262 MG chewable tabletIndication s:Epigastric pain One tab po four times a day for 14 days 56 tablet 02/17/20 24 Active citalopram (CeleXA) 10 MG tabletIndication s:Anxiety and depression Take 1 tablet (10 mg) by mouth Once per day. 30 tablet 3 05/30/19 25 2024 Active amLODIPine (Norvasc) 10 MG tabletIndication s:HTN (hypertension), benign TAKE 1 TABLET BY MOUTH EVERY DAY IN THE MORNING 90 tablet 1 05/30/19 25 Active hydrALAZINE (Apresoline) 10 MG tabletIndication s:Primary hypertension Take 1 tablet (10 mg) by mouth 2 times daily. Take with food. 180 tablet 1 05/30/19 25 Active lisinopril 40 MG tabletIndication s:Primary hypertension Take 1 tablet (40 mg) by mouth in the morning. 90 tablet 1 05/30/19 25 Active omeprazole (PriLOSEC) [address] capsuleIndicatio ns:Gastroesophag eal reflux disease without esophagitis TAKE 1 CAPSULE BY MOUTH EVERY DAY BEFORE A MEAL 90 capsule 1 05/30/19 25 Active ferrous sulfate 325 (65 Fe) MG EC tabletIndication s:Anemia, unspecified type,Iron deficiency anemia, unspecified iron deficiency anemia type TAKE 1 TABLET BY MOUTH EVERY DAY. DO NOT CRUSH, CHEW OR SPLIT. 90 tablet 05/30/19 25 Active Multiple Vitamin (Daily-Naima Multivitamin) tabletIndication s:Primary hypertension Take 1 tablet by mouth in the morning. 90 tablet 1 05/30/19 25 Active nicotine (Nicoderm, Step 2) 14 MG/24HR patchIndications :Smoker Place 1 patch on the skin 1 (one) time each day at the same time. 30 patch 1 05/30/19 25 Active sodium chloride (Hartsel) 0.65 % nasal sprayIndications :Chronic rhinitis Administer 1 spray into each nostril if needed for congestion. 30 mL 05/30/19 25 Active triamcinolone (Kenalog) 0.1 % creamIndications :Dry skin Apply topically if needed in the morning and at bedtime (pain and swelling). 30 g 2 05/30/19 25 Active sodium chloride (Hartsel) 0.65 % nasal spray Use 2 sprays q2 hours prn 02/02/202024 Discontinued(R eorder (will not trigger notification to Pharmacy)) hydrALAZINE (Apresoline) 10 MG tablet TAKE 1 TABLET BY MOUTH TWICE A DAY WITH FOOD 180 tablet 1 06/07/192024 Discontinued(R eorder (will not trigger notification to Pharmacy)) omeprazole (PriLOSEC) [address] capsuleIndicatio ns:Gastroesophag eal reflux disease without esophagitis TAKE 1 CAPSULE BY MOUTH EVERY DAY BEFORE A MEAL 90 capsule 1 09/23/192024 Discontinued(R eorder (will not trigger notification to Pharmacy)) lisinopril 40 MG tabletIndication s:Primary hypertension TAKE 1 TABLET BY MOUTH EVERY DAY IN THE MORNING 90 tablet 1 10/29/19 24 2024 Discontinued Multiple Vitamin (Daily-Naima Multivitamin) tabletIndication s:Primary hypertension TAKE 1 TABLET BY MOUTH EVERY DAY IN THE MORNING 90 tablet 1 10/29/192024 Discontinued(R eorder (will not trigger notification to Pharmacy)) nicotine (Nicoderm, Step 2) 14 MG/24HR patch Place 1 patch on the skin 1 (one) time each day at the same time. 30 patch 1 12/08/192024 Discontinued(R eorder (will not trigger notification to Pharmacy)) amLODIPine (Norvasc) 10 MG tabletIndication s:HTN (hypertension), benign TAKE 1 TABLET BY MOUTH EVERY DAY IN THE MORNING 90 tablet 1 01/31/20 24 2024 Discontinued(R eorder (will not trigger notification to Pharmacy)) escitalopram (Lexapro) 10 MG tabletIndication s:Mood disorder (CMS/HCC) TAKE 1 TABLET BY MOUTH EVERY DAY 30 tablet 1 02/28/20 24 2024 Discontinued ferrous sulfate 325 (65 Fe) MG EC tabletIndication s:Anemia, unspecified type,Iron deficiency anemia, unspecified iron deficiency anemia type TAKE 1 TABLET BY MOUTH EVERY DAY. DO NOT CRUSH, CHEW OR SPLIT. 90 tablet 02/28/20 24 2024 Discontinued lisinopril 40 MG tabletIndication s:Primary hypertension TAKE 1 TABLET BY MOUTH EVERY DAY IN THE MORNING 90 tablet 1 05/24/19 25 2024 Discontinued(R eorder (will not trigger notification to Pharmacy)) ferrous sulfate 325 (65 Fe) MG EC tabletIndication s:Anemia, unspecified type,Iron deficiency anemia, unspecified iron deficiency anemia type TAKE 1 TABLET BY MOUTH EVERY DAY. DO NOT CRUSH, CHEW OR SPLIT. 90 tablet 05/29/19 25 2024 Discontinued(R eorder (will not trigger notification to Pharmacy)) Active Problems Problem Noted Date Diagnosed Date Anxiety and depression 05/30/2024 Assessment & Plan (05/30/2024 4:50 PM EST): I will prescribe for patient citalopram 10 mg daily Counseling done today Discoloration of skin 05/30/2024 Dry skin 05/30/2024 Smoker 05/30/2024 Assessment & Plan (05/30/2024 4:51 PM EST): Counseling for smoking cessation done Nicotine patches prescribed Low-dose CT will be ordered for lung cancer screening Rhinitis 05/30/2024 Abdominal pain 02/28/2024 Assessment & Plan (02/28/2024 5:23 PM EST): PT with hx GERD and h.pylori with abdominal pain since end january. On omeprazole 40mg daily. 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 No stridor or wheeze noted. Weight loss, non-intentional 12/08/2023 Assessment & Plan (12/08/2023 3:55 PM EDT): Appetite changes are possibly secondary to methadone taper and viral illness, however low threshold for further work up, pt appears borderline cachectic. Opiate abuse, episodic 12/08/2023 Assessment & Plan (12/08/2023 3:57 PM EDT): Tapering off methadone denies cravings, aware of [facility] center, not interested in suboxone Bronchitis 12/07/2023 [...] Chronic constipation 06/07/2017 Gastroesophageal reflux disease 07/21/2013 Assessment & Plan (05/30/2024 4:50 PM EST): I advise patient to avoid NSAIDs, spicy and acid food, I advise to eat at the same time every day, I advise to elevate the head of the bed and take medications as prescribe GI referral printed and given to patient Continue with omeprazole 40 mg daily History of cholecystectomy 06/03/2012 Acquired deviated nasal septum 12/25/2011 Cirrhosis of liver 12/25/2011 Eczema 12/25/2011 HTN (hypertension) 12/25/2011 Assessment & Plan (05/30/2024 4:50 PM EST): Advise low-sodium diet Continue with: lisinopril 40 mg daily Amlodipine 10 mg daily Hydralazine 10 mg twice a day Opioid dependence 12/25/2011 Tobacco dependence syndrome 12/25/2011 Assessment & Plan (12/08/2023 3:56 PM EDT): Has been cutting down during illness. Encouraged continued reduction, nicotine patches sent Encounters Date Type Department Care Team Description 05/31/2024 Telephone [facility] [address] [place] [address] Nelly Malik MD Lungscreening 05/30/2024 1:00 PM EST Office Visit [facility] [address] [place] [phone] Nelly Malik MD Primary hypertension (Primary Dx); Anxiety and depression; HTN (hypertension), benign; Gastroesophageal reflux disease without esophagitis; Anemia, unspecified type; Iron deficiency anemia, unspecified iron deficiency anemia type; Primary hypertension; Discoloration of skin; Dry skin; Smoker; Chronic rhinitis 05/30/2024 Patient Outreach [facility] [address] [place] [phone] Nelly Malik MD Care Coordination (C3 -[facility] Blanca Millan telephone call outreach) 05/30/2024 Travel 05/27/2024 Refill [facility] [address] [place] [phone] Nelly Malik MD Anemia, unspecified type; Iron deficiency anemia, unspecified iron deficiency anemia type 05/26/2024 Orders Only [facility] [address] [place] [phone] Nelly Malik MD 05/25/2024 Telephone [facility] [address] [place] [phone] Nelly Malik MD telephone call 05/24/2024 Refill [facility] [address] [place] [phone] Nelly Malik MD Primary hypertension 05/19/2024 Patient Outreach [facility] [address] [place] [phone] Nelly Malik MD Care Coordination (C3 [facility] Blanca Millan telephone call outreach) 05/19/2024 Telephone [facility] [address] [place] [phone] Nelly Malik MD Care Management (C3- chart review) 05/04/2024 Refill [facility] [address] [place] [phone] Nelly Malik MD HTN (hypertension), benign; Primary hypertension 04/17/2024 Telephone [facility] [address] [place] [phone] Nelly Malik MD No Show 03/01/2024 Telephone [facility] [address] [place] [phone] Ana Lilia Sheehan RN Results from Last 3 Months Immunizations Name Administration Dates Next Due Hep A, Adult 12/13/2006 Influenza injectable quadrivalent preservative f ree 05/24/2013 Influenza, Split (incl. purified surface antigen ) 12/25/2011 Pneumococcal Polysaccharide PPSV23 12/18/2009 Td (adult), 5 Lf tetanus tox oid, preservative free, adsorbed 12/01/2012 Tdap 06/07/2017 Social History Tobacco Use Types Packs/Day Years Used Date Smoking Tobacco: Every Day Cigarettes Passive Smoke Exposure: Current Smokeless Tobacco: Never Tobacco Cessation:Ready to Q uit: Not Asked; Counseling Given: Not Answered Alcohol Use Standard Drinks/Week Comments Never 0 [...] Sign Reading Time Taken Comments Blood Pressure 132/75 05/30/2024 12:55 PM EST Pulse 97 05/30/2024 12:55 PM EST Temperature 36.4 ??C (97.6 ??F) 05/30/2024 1 2:55 PM EST Respiratory Rate 17 05/30/2024 12:5 5 PM EST Oxygen Saturation 98% 05/30/2024 12: 55 PM EST Inhaled Oxygen Concentration - - Weight 64.8 kg (142 lb 12.8 oz) 025 12:55 PM EST Height 175.3 cm (5' 9 ) 05/30/2024 12:5 5 PM EST Body Mass Index 21.09 05/30/2024 12:55 PM EST Plan of Treatment Upcoming Encounters Date Type Department Care Team (Late st Contact Info) Description 08/25/2024 3:15 PM EDT Office Visit [facility] [address] [place] [address] Nelly Malik MD [address] [place] [address] Health Maintenance Due Date Last Done Comments CT Colonography 1963 Dental Prophylaxis 1963 FIT DNA/Cologuard 1963 FIT 1963 FOBT 1963 Sigmoidoscopy 1963 Alcohol/Substance Use Screening 1975 Hepatitis A Vaccines (2 of 2 - Risk 2-dose series) 06/13/2007 12/13/2006 Depression Monitoring (PHQ-9) 10/11/2022, 04/13/2022 Colonoscopy 11/15/2022 [...] 07/15/2020 Influenza Vaccine (#1) 2023 4, 12/25/2011 Zoster Vaccines (2 of 2) 06/29/2024 05/04/2024 Diabetes: Hemoglobin A1C 01/26/2025 024, 12/08/2023, 04/23/2020 Tobacco Screening 05/30/2025 05/30/2024 Dental X-Ray: Full Mouth 06/25/2025 06/24/2022 Lipid Panel 04/13/2027 04/13/2022, 04/23/2020 DTaP/Tdap/Td Vaccines (3 - T d or Tdap) 05/19/2034 05/19/2024, 06/07/2017, 12/01/2012 HIB Vaccines Aged Out 11/28/2010 No longer eligi ble based on patient's age to complete this topic HIV Screening Completed 01/27/2024, 01/27/2024, 12/08/2023 Pneumococcal Vaccine: 50+ Years Completed 05/04/2024, 12/18/2009 HPV Vaccines Aged Out No longer eligi [...] Procedure Name Priority Date/Time Associated Diagnosis Comments HIV 1/2 ANTIGEN/ANTIBODY, FOURTH GENERATION W/RFL Routine 01/27/2024 10:15 AM EDT HEMOGLOBIN A1C Routine 01/27/2024 10:15 AM EDT INTRAORAL - COMPLETE SERIES OF RADIOGRAPHIC IMAGES Routine 06/24/2022 8:00 AM EDT PERIODIC ORAL EVALUATION - ESTABLISHED PATIENT Routine 06/24/2022 8:00 AM EDT LIPID PANEL, STANDARD Routine 04/13/2022 2:25 PM EST HM COLONOSCOPY Routine 11/15/2017 from Last 3 Months or Most Recently Relevant to Health Maintenance Results * HIV-1/2 Antigen and Antibodies, Fourth Generation, with Reflexes (01/27/2024 10:15 AM EDT) HIV AB/AG Nonreactive Nonreactive [facility] Comment:HIV-1 p24 Ag and/or HIV-1/HIV-2 Ab not detected.A test result that is nonreactive does not exclude thepossibility of exposure to or infection with HIV-1 and/orHIV-2. Nonreactive results in this assay for individualswith prior exposure to HIV-1 and/or HIV-2 may be due toantigen and antibody levels that are below the limit ofdetection of this assay.The [employer] HIV Ag/Ab Combo assay result andsupplemental assay results should be interpreted inconjunction with the patient's clinical presentation,history and other laboratory results. If the results areinconsistent with clinical evidence, additional testing issuggested to confirm the result. 01/27/2024 10:1 5 AM EDT 01/27/2024 10:59 AM EDT us Generic External Data Provider LAB BLOOD ORDERAB LES Final Result [facility] [address] [place] [phone] * Hemoglobin A1c (01/27/2024 10:15 AM EDT) Hemoglobin A1c 5.7 <6.0 % [facility] Comment:Hemoglobin A1C Refer ence Range Adults: 4.8 - 6.0 % Non diabetic: < 6.0 % Goal: < 7.0 %Additional Action Suggested: > 8.0 %Note: Hemoglobin A1c results are invalid for patients with abnormal amounts of HbF. Blood transfusions may impact the HbA1c concentration in the patient sample. Estimated Average Glucose 117 mg/dL [facility] Comment:eAG = Estimated ave rage glucose which is %A1C expressed asaverage glucose, using the formula of the [id number] Glucose study (ADAG), Diabetes Care, Vol.31,#8,Nov. 2007 01/27/2024 10:1 5 AM EDT 01/27/2024 10:59 AM EDT us Generic External Data Provider LAB BLOOD ORDERAB LES Final Result [facility] [address] [place] [phone] * (ABNORMAL) Lipid Panel, Standard (04/13/2022 2:25 PM EST) Cholesterol, Total 133 <200 mg/dL [facility] HDL Cholesterol 39(L) > OR = 40 mg/dL [facility] Triglycerides 126 <150 mg/dL [facility] LDL Cholesterol 73 mg/dL (calc) [facility] Comment: Reference range: <100 Desirable range <100 mg/dL for primary prevention; ?? <70 mg/dL for patients with CHD or diabetic patients with > or = 2 CHD risk factors. LDL-C is now calculated using the Marito-Paris calculation, which is a validated novel method providing better accuracy than the Friedewald equation in the estimation of LDL-C. Marito SS et al. SHAMA. 2013;310(19): 2477-7843 (http://education.Tuloko.Modabound/faq/HET501) Chol/HDLC Ratio 3.4 <5.0 (calc) [facility] Non-HDL Cholesterol 94 <130 mg/dL (calc) [facility] Comment: For patients with diabetes plus 1 major ASCVD risk factor, treating to a non-HDL-C goal of <100 mg/dL (LDL-C of <70 mg/dL) is considered a therapeutic option. 04/13/2022 2:25 PM EST 04/13/2022 2:26 PM EST Narrative [facility] - 04/14/2022 2:17 AM EST FASTING:NO FASTING: NO Soha Gómez MD LAB BLOOD ORDERABLES Final Res ult [facility] [address] [facility] [place] [address] [facility] [address], ([address]) [place] [address] * Hm Colonoscopy (11/15/2017) Historical Provider HEALTH MAINTENANCE Final Result from Last 3 Months or Most Recently Relevant to Health Maintenance Insurance [facility] C3 [facility] MEDICAID STAND ADULT Care Teams Express Manager Relationship Specialty Start Date End Date Nelly Malik MD [address] [place] [phone] PCP - General Family Medicine 01/04/19
--- OUTSIDE RECORDS SUMMARY | 2024-06-01 19:05 | XMS_ITS | Encounter Summary ---
Author Organization [employer] Address [address] [place] [address] 7 [place] [address] Care Team Providers Care Senior Project Controls Specialist Name Role Phone Nelly Malik MD Primary Care Provide r Reason for Referral * Consultation (Routine) - Authorized Specialty Diagnoses / Procedures Referred By Morgan salgado Referred To Contact Family Medicine Diagnoses Discoloration of skin Nelly Malik MD [address] [place] [phone] Phone: tel: fax: Referral ID Status Reason Start Date Expiration Date Visits Requested Visits Authorized [id number] Authorized Specialty Services Required 05/30/2024 05/30/2025 1 1 Encounter Details Date Type Department Care Team (Late st Contact Info) Description 05/30/2024 1:00 PM EST Office Visit [facility] [address] [place] [address] [phone] Nelly Malik MD [address] [place] [address] [phone] Primary hypertension (Primary Dx); Anxiety and depression; HTN (hypertension), benign; Gastroesophageal reflux disease without esophagitis; Anemia, unspecified type; Iron deficiency anemia, unspecified iron deficiency anemia type; Primary hypertension; Discoloration of skin; Dry skin; Smoker; Chronic rhinitis Social History Tobacco Use Types Packs/Day Years [...] AM EDT documented as of this encounter Last Filed Vital Signs Vital Sign Reading [...] Mass Index 21.09 05/30/2024 12:55 PM EST documented in this encounter Progress Notes * Nelly Rubio MD - 05/30/2024 1:00 PM EST SUBJECTIVE: Ervin Andrade is a 59 y.o. year old male who presents for Chronic Disease Management . Last time patient was seen by me was in 2020 Acute Concerns: Patient reports he was in detox program and when he was discharged it was prescribed for him citalopram 10 mg daily, he reports since he has been taking this medication he feels much better regardinganxiety and depression, and he was wondering if he can continue this same prescription Patient today complains of dark discoloration on his face, he would like to be referred to a corduroy cutting supervisor Patient also complaining of dry skin on his hands Social History Social History Narrative Not on file Patient Active Problem List Diagnosis Acquired deviated nasal septum Anemia Chronic constipation Chronic hepatitis C (CMS/HCC) Chronic left shoulder pain Cirrhosis of liver (CMS/HCC) Eczema Gastroesophageal reflux disease History of cholecystectomy HTN (hypertension) Macular eruption Mood disorder (CMS/HCC) Opioid dependence (CMS/HCC) Tobacco dependence syndrome Periodontal disease Bronchitis Hepatitis C virus infection resolved after antiviral drug therapy History of Helicobacter pylori infection Periumbilical abdominal pain Rotator cuff dysfunction Tendonitis Cirrhosis of liver without ascites (CMS/HCC) GERD (gastroesophageal reflux disease) Hypertension Chronic cough Weight loss, non-intentional Opiate abuse, episodic (CMS/HCC) Hypercalcemia Epigastric pain Black tarry stools Abdominal pain Weight loss Erectile dysfunction Anxiety and depression Discoloration of skin Dry skin Smoker Rhinitis No family history on file. Review of Systems Constitutional: Negative. HENT: Negative. Respiratory: Negative. Cardiovascular: Negative. Gastrointestinal: Negative. Skin: Positive for rash. Psychiatric/Behavioral: The patient is nervous/anxious. OBJECTIVE: Vitals: 05/30/24 1255 BP: 132/75 BP Location: Left arm Patient Position: Sitting BP Cuff Size: Adult Pulse: 97 Resp: 17 Temp: 97.6 ??F (36.4 ??C) TempSrc: Oral SpO2: 98% Weight: 142 lb 12.8 oz (64.8 kg) Height: 5' 9 (1.753 m) Physical Exam Constitutional: Appearance: Normal appearance. Cardiovascular: Rate and Rhythm: Normal rate and regular rhythm. Pulmonary: Effort: Pulmonary effort is normal. Breath sounds: Normal breath sounds. Abdominal: General: Abdomen is flat. Palpations: Abdomen is soft. Musculoskeletal: Right lower leg: No edema. Left lower leg: No edema. Neurological: Mental Status: He is alert. Follow Up: Follow up in about 3 months (around 08/27/2024) for chronic conditions . Current Outpatient Medications on File Prior to Visit Medication Sig Dispense Refill albuterol 108 (90 Base) MCG/ACT inhaler Inhale 2 puffs every 4 (four) hours. Amitiza 24 MCG capsule Take 24 mcg by mouth 2 times daily. bismuth subsalicylate (Pepto Bismol) 262 MG chewable tablet One tab po four times a day for 14 days56 tablet 0 cyclobenzaprine (Flexeril) 10 MG tablet TAKE 1 TABLET BY MOUTH THREE TIMES A DAY 90 tablet 0 dicyclomine (Bentyl) 20 MG tablet TAKE 1 TABLET BY MOUTH FOUR TIMES A DAY NEEDED FOR CRAMPS fluticasone (Flonase) 50 MCG/ACT nasal spray Administer 1-2 sprays into affected nostril(s) at bed time. methadone (Dolophine) 10 MG tablet Take 5 tablets by mouth at bed time. nicotine (Nicoderm, Step 1) 21 MG/24HR patch Place 1 patch on the skin at bed time. oxymetazoline (Afrin) 0.05 % nasal spray spray 2 spray by intranasal route 3 times every day for 3 days polyethylene glycol, PEG, 3350 (Glycolax) 17 GM/SCOOP powder Mix one scoop with water daily 507 g 3 simethicone (Mylicon,Gas-X) 125 MG capsule tyake 1 tab QID prn bloating sodium chloride 0.9% (NS) 0.9 % flush Apply normal saline flush BID [DISCONTINUED] amLODIPine (Norvasc) 10 MG tablet TAKE 1 TABLET BY MOUTH EVERY DAY IN THE MORNING 90tablet 1 [DISCONTINUED] escitalopram (Lexapro) 10 MG tablet TAKE 1 TABLET BY MOUTH EVERY DAY 30 tablet 1 [DISCONTINUED] ferrous sulfate 325 (65 Fe) MG EC tablet TAKE 1 TABLET BY MOUTH EVERY DAY. DO NOT CRUSH, CHEW OR SPLIT. 90 tablet 0 [DISCONTINUED] ferrous sulfate 325 (65 Fe) MG EC tablet TAKE 1 TABLET BY MOUTH EVERY DAY. DO NOT CRUSH, CHEW OR SPLIT. 90 tablet 0 [DISCONTINUED] hydrALAZINE (Apresoline) 10 MG tablet TAKE 1 TABLET BY MOUTH TWICE A DAY WITH FOOD 180 tablet 1 [DISCONTINUED] lisinopril 40 MG tablet TAKE 1 TABLET BY MOUTH EVERY DAY IN THE MORNING 90 tablet 1 [DISCONTINUED] lisinopril 40 MG tablet TAKE 1 TABLET BY MOUTH EVERY DAY IN THE MORNING 90 tablet 1 [DISCONTINUED] Multiple Vitamin (Daily-Naima Multivitamin) tablet TAKE 1 TABLET BY MOUTH EVERY DAY IN THE MORNING 90 tablet 1 [DISCONTINUED] nicotine (Nicoderm, Step 2) 14 MG/24HR patch Place 1 patch on the skin 1 (one) time each day at the same time. 30 patch 1 [DISCONTINUED] omeprazole (PriLOSEC) [address] capsule TAKE 1 CAPSULE BY MOUTH EVERY DAY BEFORE A MEAL 90 capsule 1 [DISCONTINUED] sodium chloride ([place]) 0.65 % nasal spray Use 2 sprays q2 hours prn No current facility-administered medications on file prior to visit. Problem List Items Addressed This Visit Hypertension - Primary Relevant Medications hydrALAZINE (Apresoline) 10 MG tablet lisinopril 40 MG tablet Multiple Vitamin (Daily-Naima Multivitamin) tablet Anxiety and depression I will prescribe for patient citalopram 10 mg daily Counseling done today Relevant Medications citalopram (CeleXA) 10 MG tablet Gastroesophageal reflux disease I advise patient to avoid NSAIDs, spicy and acid food, I advise to eat at the same time every day, I advise to elevate the head of the bed and take medications as prescribe GI referral printed and given to patient Continue with omeprazole 40 mg daily Relevant Medications omeprazole (PriLOSEC) [address] capsule Anemia Relevant Medications ferrous sulfate 325 (65 Fe) MG EC tablet HTN (hypertension) Advise low-sodium diet Continue with: lisinopril 40 mg daily Amlodipine 10 mg daily Hydralazine 10 mg twice a day Relevant Medications hydrALAZINE (Apresoline) 10 MG tablet lisinopril 40 MG tablet Multiple Vitamin (Daily-Naima Multivitamin) tablet Discoloration of skin Relevant Orders Referral to [facility] Derm Skin Adult Dry skin Relevant Medications triamcinolone (Kenalog) 0.1 % cream Smoker Counseling for smoking cessation done Nicotine patches prescribed Low-dose CT will be ordered for lung cancer screening Relevant Medications nicotine (Nicoderm, Step 2) 14 MG/24HR patch Rhinitis Relevant Medications sodium chloride ([place]) 0.65 % nasal spray Other Visit Diagnoses HTN (hypertension), benign Relevant Medications amLODIPine (Norvasc) 10 MG tablet documented in this encounter Miscellaneous Notes * Assessment & Plan Note - Nelly Rubio MD - 05/30/2024 4:51 PM EST Associated Problem(s): Smoker Counseling for smoking cessation done Nicotine patches prescribed Low-dose CT will be ordered for lung cancer screening * Assessment & Plan Note - Nelly Rubio MD - 05/30/2024 4:50 PM EST Associated Problem(s): Anxiety and depression I will prescribe for patient citalopram 10 mg daily Counseling done today * Assessment & Plan Note - Nelly Rubio MD - 05/30/2024 4:50 PM EST Associated Problem(s): Gastroesophageal reflux disease I advise patient to avoid NSAIDs, spicy and acid food, I advise to eat at the same time every day, I advise to elevate the head of the bed and take medications as prescribe GI referral printed and given to patient Continue with omeprazole 40 mg daily * Assessment & Plan Note - Nelly Rubio MD - 05/30/2024 4:50 PM EST Associated Problem(s): HTN (hypertension) Advise low-sodium diet Continue with: lisinopril 40 mg daily Amlodipine 10 mg daily Hydralazine 10 mg twice a day documented in this encounter Plan of Treatment Upcoming Encounters Date Type Department Care Team (Late st Contact Info) Description 08/25/2024 3:15 PM EDT Office Visit [facility] [address] [place] [address] Nelly Malik MD [address] [place] [address] Scheduled Referrals Name Type Priority Associated Diagnoses Orde r Schedule Referral to [facility] Derm Skin Adult Outpatient Referral Routine Discoloration of skin Expected: 05/30/2024 (Approximate), Expires: 05/30/2025 documented as of this encounter Visit Diagnoses Diagnosis Primary hypertension- Primary Unspecified essential hypertension Anxiety and depression HTN (hypertension), benign Essential hypertension, benign Gastroesophageal reflux disease without esophagitis Esophageal reflux Anemia, unspecified type Iron deficiency anemia, unspecified iron deficiency anemia type Discoloration of skin Dyschromia, unspecified Dry skin Other symptoms involving skin and integumentary tissues Smoker Tobacco use disorder Chronic rhinitis documented in this encounter Additional Health Concerns Assessment Noted Time PHQ-9 Depression Total Score: 10 023 1:58 PM EST documented as of this encounter Care Teams Senior Project Controls Specialist Relationship Specialty Start Date End Date Nelly Malik MD [address] [place] [address] PCP - General Family Medicine 01/04/19 documented as of this encounter
--- OUTSIDE RECORDS SUMMARY | 2024-06-01 19:05 | XMS_ITS | Encounter Summary ---
Author Organization [employer] Address [address] [facility] 7t [place] [address] Care Team Providers Care Nurse Special Name Role Phone Nelly Malik MD Primary Care Provide r Reason for Visit * Reason Onset Date Comments telephone call 05/25/2024 Encounter Details Date Type Department Care Team ([facility] st Contact Info) Description 05/25/2024 Telephone [facility] [address] [place] [address] Nelly Malik MD [address] [place] [address] telephone call Social History Tobacco Use Types Packs/Day Years [...] as of this encounter Miscellaneous Notes * Addendum Note - Wolf Squires RN - 05/29/2024 10:54 AM ESTAddended by: WOLF SQUIRES on: 05/29/2024 10:54 AM Modules accepted: Orders * Telephone Encounter - Wolf Squires RN - 05/29/2024 10:51 AM EST Noted. Per chart review, lexapro medication 10mg last RX's 01/28/24 by PCP qty 30 and 02/28/24 alsoby PCP for qty 30. RN called patient [phone] and advised him he needs an appointment with PCP to discuss lexapro medication as PCP has NOT seen patient since 2020. Patient agreed to an appointment for tomorrow 05/30/24 at 1pm. Patient to f/u PRN. * Addendum Note - Daniel Lira RN - 05/25/2024 3:36 PM ESTAddended by: DANIEL LIRA on: 05/25/2024 03:36 PM Modules accepted: Orders * Telephone Encounter - Daniel Lira RN - 05/25/2024 3:22 PM EST Tc to pt in regards to going to [facility] pharmacy yesterday and only received one tablet of rx Lisinopril 40 mg yesterday. Pt reports since they onlye had one they took that pill today but now has no pills left. Pt advised we'll call pharmacy to find out and call back with updates. Pt verbalized understanding and tc to [facility] who reports pt has never picked up their lisinopril and it is ready for pickle cutter. Tc to pt to let them know pt reports that they were requesting refill since yesterday [facility] needs to send in a new script. Pt also reports they came back [facility] to informof refill request for lisinopril and Escitalopram. Pt advised we'll send a message to PCP regarding refill request but to still pickle cutter their Lisonpril to take it as rx. Pt verbalized understanding and refill request sent to PCP for review. * Telephone Encounter - Kim hPillip - 05/25/2024 12:23 PM EST Pt walked in stating he went to [facility] for his medication Lisinopril 40mg but when he went they only gave him one pill he is wondering why didn't they give him his normal amount. documented in this encounter Plan of Treatment Upcoming Encounters Date Type Department Care Team (Late st Contact Info) Description 08/25/2024 3:15 PM EDT Office Visit [facility] MED[facility]INE [address] [place] [phone] Nelly Malik MD [address] [place] [phone] documented as of this encounter Visit Diagnoses Diagnosis Mood disorder (CMS/HCC) Unspecified episodic mood disorder documented in this encounter Additional Health Concerns Assessment Noted Time PHQ-9 Depression Total Score: 10 023 1:58 PM EST documented as of this encounter Care Teams Nurse Special Relationship Specialty Start Date End Date Nelly Malik MD [address] [place] [phone] PCP - General Family Medicine 01/04/19 documented as of this encounter
--- OUTSIDE RECORDS SUMMARY | 2024-06-01 19:05 | XMS_ITS | Encounter Summary ---
Author Organization [employer] [facility] Address [address] [facility] 7 [place] [address] Care Team Providers Care Doughnut Maker Name Role Phone Nelly Malik MD Primary Care Provide r Encounter Details Date Type Department Care Team (Late Contact Info) Description 12/11/2022 Orders Only [facility] MEDICINE [address] [place] [phone] ProviderCherri MD Social History Tobacco Use Types Packs/Day Years [...] 3:15 PM EDT Office Visit [facility] MED[facility] [address] [place] [address] [phone] Nelly Malik MD [address] [place] [address] [phone] documented as of this encounter Procedures Procedure Name Priority Date/Time Associated Diagnosis Comments HIGH SENSITIVITY TROPONIN I Routine 06/02/2023 1:50 PM EST CBC WITH AUTO DIFFERENTIAL Routine 06/02/2023 1:50 PM EST PROTHROMBIN TIME-INR Routine 06/02/2023 1:50 PM EST LIPASE Routine 06/02/2023 1:50 PM EST COMPREHENSIVE METABOLIC PANEL Routine 06/02/2023 1:50 PM EST HM COLONOSCOPY Routine 11/15/2017 documented in this encounter Results * High Sensitivity Troponin I (06/02/2023 1:50 PM EST) Pathologist [facility] TROPONIN I HIGH SENSITIVITY 2.8 <3.5 - 35.0 ng/L [facility] Comment:The Abreu high sens itivity Troponin-I results should beused in conjunction with other diagnostic information suchas ECG, clinical observations and information, and patientsymptoms to aid in the diagnosis of [place]. 06/02/2023 1:50 PM EST 06/02/2023 1:53 PM EST us Generic External Data Provider LAB BLOOD ORDERAB LES Final Result Performing Organization Address [facility] Co de Phone Number [facility] [address] [place] [phone] * Lipase (06/02/2023 1:50 PM EST) Pathologist [facility] Lipase 19 8 - 78 U/L [facility] 06/02/2023 1:50 PM EST 06/02/2023 1:53 PM EST Generic External Data Provider LAB BLOOD ORDERAB LES Final Result Performing Organization Address [facility] Co de Phone Number [facility] [address] [place] [phone] * (ABNORMAL) Comprehensive Metabolic Panel (06/02/2023 1:50 PM EST) Pathologist [facility] Sodium 140 135 - 145 mmol/L [facility] Potassium 3.9 3.3 - 5.1 mmol/L [facility] Chloride 107 96 - 108 mmol/L [facility] Carbon Dioxide 27 22 - 29 mmol/L [facility] Anion Gap 10(L) 12 - 20 [facility] Urea Nitrogen (BUN) 39(H) 9 - 16 mg/dL [facility] Creatinine, Serum 1.20 0.5 - 1.4 mg/dL [facility] Creatinine Clr Calc Pharmacy 65.4 [facility] Comment:eGFR (calculated fro m the MDRD study equation) and eCrCl(calculated from the Cockcroft-Gault equation) are based ondifferent parameters and may not yield comparable results.If eCrCl result is absurd, please check patient'sheight/weight. Estimated Glomerular Filt Rate >60 [facility] Comment:NOTE: For -Am erican individuals, multiply the result by 1.210.Chronic Kidney Disease: Estimated GFR < 60 mL/min/1.79l1Inbpdk Kidney Disease: Estimated GFR < 15 mL/min/1.73m2 Glucose 86 60 - 115 mg/dL [facility] Calcium 10.1 8.4 - 10.2 mg/dL [facility] Bilirubin, Total 0.7 0.0 - 1.0 mg/dL [facility] Aspartate Amino Transferase 31 5 - 37 U/L [facility] Alanine Aminotransferase 26 0 - 40 U/L [facility] Total Protein 7.7 6.5 - 8.0 g/dL [facility] Albumin Level 4.6 3.5 - 5.0 g/dL [facility] Alkaline Phosphatase 77 39 - 117 U/L [facility] 06/02/2023 1:50 PM EST 06/02/2023 1:53 PM EST us Generic External Data Provider LAB BLOOD ORDERAB LES Final Result [facility] [address] [place] [phone] [phone] * Prothrombin Time-INR (06/02/2023 1:50 PM EST) Pathologist [facility] Prothrombin Time 13.0 11.1 - 13.3 SEC [facility] INTERNATIONAL NORM RATIO 1.1 0.9 - 1.1 [facility] Comment:INTERNATIONAL NORMAL IZED RATIO (INR) REFERENCE [...] ORDERAB LES Final Result Performing Organization Address City/State/[facility] Co de Phone Number [facility] [address] [place] [address] [phone] * (ABNORMAL) CBC auto differential (06/02/2023 1:50 PM EST) Pathologist [facility] White Blood Count 6.6 4.8 - 10.8 X10*3/uL [facility] Red Blood Count 3.96(L) 4.60 - 5.80 X10*6/uL [facility] Hemoglobin 11.1(L) 14.0 - 18.0 g/dl [facility] Hematocrit 33.4(L) 42.0 - 52.0 % [facility] Mean Corpuscular Volume 84.3 80.0 - 98.0 fL [facility] Mean Corpuscular Hemoglobin 28.0 27.0 - 33.0 pg [facility] Mean Corpuscular HGB Conc 33.2 31.0 - 36.0 g/dl [facility] Red Cell Distribution Width 13.9 11.0 - 16.0 % [facility] Platelet Count 154(L) 160 - 400 X10*3/uL [facility] Mean Platelet Volume 10.8 9.4 - 12.4 fL [facility] Neutrophils Percent Auto 70.1 45 - 73 % [facility] Imm Gran Pct Auto 0.5(H) 0.0 - 0.4 % [facility] Lymphocytes Percent Auto 22.4 20 - 40 % [facility] Monocytes Percent Auto 6.5 2 - 11 % [facility] Eosinophils Percent Auto 0.3 0 - 4 % [facility] Basophils Percent Auto 0.2 0 - 2 % [facility] NRBC Pct Auto 0.0 0.0 - 0.2 /100WBC [facility] Neutrophils Absolute Auto 4.7 2.0 - 8.3 x10*3/uL [facility] Imm Gran Abs Auto 0.03 0.00 - 0.03 X10*3/uL [facility] Lymphocytes Absolute Auto 1.5 1.2 - 4.9 X10*3/uL [facility] Monocytes Absolute Auto 0.4 0.1 - 1.2 X10*3/uL [facility] Eosinophils Absolute Auto 0.0 0.0 - 0.4 X10*3/uL [facility] Basophils Absolute Auto 0.0 0.0 - 0.2 X10*3/uL [facility] NRBC Abs Auto 0.000 0.0 - 0.012 X10*3/uL [facility] 06/02/2023 1:50 PM EST 06/02/2023 1:53 PM EST us Generic External Data Provider LAB BLOOD ORDERAB LES Final Result [facility] [address] [place] [phone] [phone] * Hm Colonoscopy (11/15/2017) us Historical Provider HEALTH MAINTENANCE Final Result documented in this encounter Visit Diagnoses Not on filedocumented in this encounter Additional Health Concerns Assessment Noted Time PHQ-9 Depression Total Score: 10 023 1:58 PM EST documented as of this encounter Care Teams Doughnut Maker Relationship Specialty Start Date End Date Nelly Malik MD [address] [place] [address] PCP - General Family Medicine 01/04/19 documented as of this encounter
--- OUTSIDE RECORDS SUMMARY | 2024-06-01 19:05 | XMS_ITS | Encounter Summary ---
Author Organization [employer] Address [address] [facility] [address]t [place] [address] Care Team Providers Care Rigger Supervisor Name Role Phone Nelly Malik MD Primary Care Provide r Reason for Visit * Reason Comments Med Refill Encounter Details Date Type Department Care Team ([facility] st Contact Info) Description 04/26/2023 Refill [facility] [address] [place] [address] Soha Gómez MD [address] [place] [address] Primary hypertension Social History Tobacco Use Types [...] Description 08/25/2024 3:15 PM EDT Office Visit [facility] [address] [place] [address] Nelly Malik MD [address] [place] [phone] documented as of this encounter Visit Diagnoses Diagnosis Primary hypertension Unspecified essential hypertension documented in this encounter Additional Health Concerns Assessment Noted Time PHQ-9 Depression Total Score: 10 023 1:58 PM EST documented as of this encounter Care Teams Rigger Supervisor Relationship Specialty Start Date End Date Nelly Malik MD [address] [place] [phone] PCP - General Family Medicine 01/04/19 documented as of this encounter
--- OUTSIDE RECORDS SUMMARY | 2024-06-01 19:05 | XMS_ITS | Encounter Summary ---
Author Organization [employer] Address [address] [facility] 7t [place] [address] Care Team Providers Care Calendar Control Clerk Blood Bank Name Role Phone Nelly Malik MD Primary Care Provide r Encounter Details Date Type Department Care Team (Late st Contact Info) Description 05/26/2024 Orders Only [facility] [address] [place] [address] Nelly Malik MD [address] [place] [address] Social History Tobacco Use Types Packs/Day Years [...] Description 08/25/2024 3:15 PM EDT Office Visit [facility] [address] [place] [address] Nelly Malik MD [address] [place] [phone] documented as of this encounter Visit Diagnoses Not on filedocumented in this encounter Additional Health Concerns Assessment Noted Time PHQ-9 Depression Total Score: 10 023 1:58 PM EST documented as of this encounter Care Teams Calendar Control Clerk Blood Bank Relationship Specialty Start Date End Date Nelly Malik MD [address] [place] [phone] PCP - General Family Medicine 01/04/19 documented as of this encounter
--- OUTSIDE RECORDS SUMMARY | 2024-06-01 19:05 | XMS_ITS | Encounter Summary ---
Author Organization [employer] Address 75 [facility] 7t [place] [address] Care Team Providers Care Psychology Fellow Name Role Phone Nelly Malik MD Primary Care Provide r Reason for Visit * Reason Comments Med Refill Encounter Details Date Type Department Care Team ([facility] st Contact Info) Description 05/24/2024 Refill [facility] [address] [place] [address] Nelly Malik MD 230 [place] [address] Primary hypertension Social History Tobacco Use Types [...] Description 08/25/2024 3:15 PM EDT Office Visit [facility] [address] [place] [address] Nelly Malik MD [address] [place] [phone] documented as of this encounter Visit Diagnoses Diagnosis Primary hypertension Unspecified essential hypertension documented in this encounter Additional Health Concerns Assessment Noted Time PHQ-9 Depression Total Score: 10 023 1:58 PM EST documented as of this encounter Care Teams Psychology Fellow Relationship Specialty Start Date End Date Nelly Malik MD [address] [place] [phone] PCP - General Family Medicine 01/04/19 documented as of this encounter
--- OUTSIDE RECORDS SUMMARY | 2024-06-01 19:05 | XMS_ITS | Encounter Summary ---
Author Organization [employer] Address 75 [facility] 7t [place] [address] Care Team Providers Care Snake Charmer Name Role Phone Nelly Malik MD Primary Care Provide r Reason for Visit * Reason Comments Care Coordination [facility] nielsen telephone call outreach Encounter Details Date Type Department Care Team (Latest Contact Info) Description 05/30/2024 Patient Outreach [facility] [address] [place] [address] Nelly Malik MD 230 [place] [address] Care Coordination (C3 ANASTASIA Millan telephone call outreach) Social History Tobacco Use Types Packs/Day Years Used Date Smoking Tobacco: Every Day Cigarettes Passive Smoke Exposure: Current Smokeless Tobacco: Never Alcohol Use Standard Drinks/Week [...] AM EDT documented as of this encounter Progress Notes * Blanca Millan - 05/30/2024 2:29 PM EST CHW Blanca Millan called patient to introduce Adult Complex Care Program. Patient's name, and Address was confirmed. Program information was provided to the patient. Patient declined to participatein program. Provided patient with direct contact information for future reference. documented in this encounter Plan of Treatment Upcoming Encounters Date Type Department Care Team (Late st Contact Info) Description 08/25/2024 3:15 PM EDT Office Visit [facility] MED[facility] [address] [place] [address] Nelly Malik MD [address] [place] [address] documented as of this encounter Visit Diagnoses Not on filedocumented in this encounter Additional Health Concerns Assessment Noted Time PHQ-9 Depression Total Score: 10 023 1:58 PM EST documented as of this encounter Care Teams Snake Charmer Relationship Specialty Start Date End Date Nelly Malik MD [address] [place] [phone] PCP - General Family Medicine 01/04/19 documented as of this encounter
--- OUTSIDE RECORDS SUMMARY | 2024-06-01 19:05 | XMS_ITS | Encounter Summary ---
Author Organization [employer] Address 75 [facility] 7t [place] [address] Care Team Providers Care Reviewer Sales Name Role Phone Nelly Malik MD Primary Care Provide r Reason for Visit * Reason Comments Care Coordination [facility]ielsen telephone call outreach Encounter Details Date Type Department Care Team (Latest Contact Info) Description 05/19/2024 Patient Outreach [facility] [address] [place] [address] Nelly Malik MD 230 [place] [address] Care Coordination (C3 ANASTASIA Millan telephone call [...] encounter Progress Notes * Blanca Millan - 05/19/2024 10:58 AM EST CHW Blanca Millan, placed outbound call to patient in regard to offer services. CHW introducing herself from [facility] CM Department with CHW's name, department and direct contact number requesting call back. Will re-attempt to contact within 5 days. and address not confirmed documented in this encounter Plan of Treatment Upcoming Encounters Date Type Department Care Team (Late st Contact Info) Description 08/25/2024 3:15 PM EDT Office Visit [facility] [address] [place] [phone] Nelly Malik MD 230 [place] [address] documented as of this encounter Visit Diagnoses Not on filedocumented in this encounter Additional Health Concerns Assessment Noted Time PHQ-9 Depression Total Score: 10 023 1:58 PM EST documented as of this encounter Care Teams Reviewer Sales Relationship Specialty Start Date End Date Nelly Malik MD [address] [place] [phone] PCP - General Family Medicine 01/04/19 documented as of this encounter
--- OUTSIDE RECORDS SUMMARY | 2024-06-01 19:05 | XMS_ITS | Encounter Summary ---
Author Organization [employer] Address 75 [facility] 7t [place] [address] Care Team Providers Care Prototype Fabricator Name Role Phone Nelly Malik MD Primary Care Provide r Reason for Visit * Reason Comments Med Refill Encounter Details Date Type Department Care Team ([facility] st Contact Info) Description 05/04/2024 Refill [facility] [address] [place] [address] Nelly Malik MD 230 [place] [address] HTN (hypertension), benign; Primary hypertension Social History Tobacco Use Types [...] Description 08/25/2024 3:15 PM EDT Office Visit [facility] [address] [place], [place] [phone] Nelly Malik MD 230 [place] [address] documented as of this encounter Visit Diagnoses Diagnosis HTN (hypertension), benign Essential hypertension, benign Primary hypertension Unspecified essential hypertension documented in this encounter Additional Health Concerns Assessment Noted Time PHQ-9 Depression Total Score: 10 023 1:58 PM EST documented as of this encounter Care Teams Prototype Fabricator Relationship Specialty Start Date End Date Nelly Malik MD 230 [place] [address] PCP - General Family Medicine 01/04/19 documented as of this encounter
--- OUTSIDE RECORDS SUMMARY | 2024-06-01 19:05 | XMS_ITS | Encounter Summary ---
Author Organization [facility] Address 75 [facility] 7t [place] [address] Care Team Providers Care Financial Foundations Associate Name Role Phone Nelly Malik MD Primary Care Provide r Encounter Details Date Type Department Care Team (Latest Contact Info) Description 06/17/2020 Abstract [facility] CONVERSION[facility] Dental, Provider, DDS Social History [...] Description 08/25/2024 3:15 PM EDT Office Visit [facility] [address] [place] [address] Nelly Malik MD 230 [place] [address] documented as of this encounter Visit Diagnoses Not on filedocumented in this encounter Care Teams Financial Foundations Associate Relationship Specialty Start Date End Date Nelly Malik MD 230 [place], [place] [phone] PCP - General Family Medicine 01/04/19 documented as of this encounter
--- OUTSIDE RECORDS SUMMARY | 2024-06-01 19:05 | XMS_ITS | Encounter Summary ---
Author Organization [employer] Address 75 [facility] 7t [place] [address] Care Team Providers Care Etcher Photoengraving Name Role Phone Nelly Malik MD Primary Care Provide r Encounter Details Date Type Department Care Team (Latest Contact Info) Description 05/30/2024 Travel Social History Tobacco Use Types Packs/Day Years Used Date Smoking Tobacco: Every Day Cigarettes Passive Smoke Exposure: Current Smokeless Tobacco: Never Alcohol Use Standard Drinks/Week Comments Never 0 (1 standard drink = 0.6 oz pur e alcohol) Depression Answer Date Recorded Patient Health Questionnaire-9 Score 10 04/13/2022 Housing Stability Answer Date Recorded What is your housing situation today? I have jacob alvaro 02/13/[address] you li [...] Description 08/25/2024 3:15 PM EDT Office Visit [facility]IC[facility] [address] [place] [address] Nelly Malik MD 230 [place] [address] documented as of this encounter Visit Diagnoses Not on filedocumented in this encounter Additional Health Concerns Assessment Noted Time PHQ-9 Depression Total Score: 10 023 1:58 PM EST documented as of this encounter Care Teams Etcher Photoengraving Relationship Specialty Start Date End Date Nelly Malik MD [address] [place] [phone] PCP - General Family Medicine 01/04/19 documented as of this encounter
--- OUTSIDE RECORDS SUMMARY | 2024-06-01 19:05 | XMS_ITS | Encounter Summary ---
Author Organization [employer] Address 75 [facility] 7t [place] [address] Care Team Providers Care Director Of Optimization Name Role Phone Nelly Malik MD Primary Care Provide r Encounter Details Date Type Department Care Team ([facility] Contact Info) Description 04/22/2022 Orders Only [facility] MEDICINE [address] [place] [phone] Soha Gómez MD 230 [place], [place] [phone] Acute kidney injury (CMS/HCC) (Primary Dx) Social [...] Upcoming Encounters Date Type Department Care Team ([facility] Contact Info) Description 08/25/2024 3:15 PM EDT Office Visit [facility] 230 [place], [place] [phone] Nelly Malik MD [address] [place] [address] Scheduled Orders Name Type Priority Associated Diagnoses [...] (AMARO) (11/29/2022 11:16 AM EDT) IDNOW SERIAL# [id number] [facility] COVID-19 TEST Negative Negative [facility] COVID-19 NOTE See Note [facility] Comment: Results are for the identification of SARS-CoV2 RNA. TheSARS-CoV2 RNA is generally detectable in respiratory samplesduring the acute phase of infection. Positive results areindicative of the presence of SARS-CoV-2 RNA; clinicalcorrelation with patient history and other diagnosticinformation is necessary to determine patient infectionstatus. Positive results do not rule out bacterial infectionor co- infection with other viruses.Testing facilities within the [facility] and itsterritories are required to report all [...] use by authorized laboratories.Testing performed on the Amaro ID NOW utilizing NAAT. 11/29/2022 11:1 6 AM EDT 11/29/2022 11:19 AM EDT [facility] [employer] Exter nal Provider LAB MOLECULAR DIAGNOSTICS ORDERABLES Final Result Performing Organization Address [facility] Co de Phone Number [facility] [address] [place] [phone] * Influenza A B2 ID NOW ([place]ib[place]ater) (11/29/2022 10:46 AM EDT) IDNOW SERIAL# [id number] [facility] Influenza A Negative Negative [facility] Influenza B2 Negative Negative [facility] Influenza A B2 Note See Note [facility] Comment:The Amaro ID NOW In fluenza [...] 6 AM EDT 11/29/2022 10:49 AM EDT [facility] Exter nal Provider LAB MICROBIOLOGY - GENERAL ORDERABLES Final Result Performing Organization Address [facility] Co de Phone Number [facility] [address] [place] [phone] * (ABNORMAL) Basic Metabolic Panel (11/29/2022 10:46 AM EDT) Sodium 143 135 - 145 mmol/L [facility] Potassium 3.4 3.3 - 5.1 mmol/L [facility] Chloride 106 96 - 108 mmol/L [facility] Carbon Dioxide 25 22 - 29 mmol/L [facility] Anion Gap 15 12 - 20 [facility] Urea Nitrogen (BUN) 26(H) 9 - 16 mg/dL [facility] Creatinine, Serum 1.18 0.5 - 1.4 mg/dL [facility] Creatinine Clr Calc Pharmacy 67.4 [facility] Comment:eGFR (calculated fro m the MDRD study equation) and eCrCl(calculated from the Cockcroft-Gault equation) are based ondifferent parameters and may not yield comparable results.If eCrCl result is absurd, please check patient'sheight/weight. Estimated Glomerular Filt Rate >60 [facility] Comment:NOTE: For -Am erican individuals, multiply the result by 1.210.Chronic Kidney Disease: Estimated GFR < 60 mL/min/[id number] Kidney Disease: Estimated GFR < 15 mL/min/1.73m2 Glucose 113 60 - 115 mg/dL [facility] Calcium 10.1 8.4 - 10.2 mg/dL [facility] 11/29/2022 10:4 6 AM EDT 11/29/2022 10:49 AM EDT [facility] [facility] [employer] External Provider LAB BLO OD ORDERABLES Final Result [facility] [address] [place] [phone] * (ABNORMAL) CBC auto differential (11/29/2022 10:46 AM EDT) White Blood Count 6.7 4.8 - 10.8 X10*3/uL [facility] Red Blood Count 4.06(L) 4.60 - 5.80 X10*6/uL [facility] Hemoglobin 11.4(L) 14.0 - 18.0 g/dl [facility] Hematocrit 34.0(L) 42.0 - 52.0 % [facility] Mean Corpuscular Volume 83.7 80.0 - 98.0 fL [facility] Mean Corpuscular Hemoglobin 28.1 27.0 - 33.0 pg [facility] Mean Corpuscular HGB Conc 33.5 31.0 - 36.0 g/dl [facility] Red Cell Distribution Width 13.8 11.0 - 16.0 % [facility] Platelet Count 126(L) 160 - 400 X10*3/uL [facility] Mean Platelet Volume 10.8 9.4 - 12.4 fL [facility] Neutrophils Percent Auto 76.2(H) 45 - 73 % [facility] Imm Gran Pct Auto 0.3 0.0 - 0.4 % [facility] Lymphocytes Percent Auto 16.1(L) 20 - 40 % [facility] Monocytes Percent Auto 6.3 2 - 11 % [facility] Eosinophils Percent Auto 1.0 0 - 4 % [facility] Basophils Percent Auto 0.1 0 - 2 % [facility] NRBC Pct Auto 0.0 0.0 - 0.2 /100WBC [facility] Neutrophils Absolute Auto 5.1 2.0 - 8.3 x10*3/uL [facility] Imm Gran Abs Auto 0.02 0.00 - 0.03 X10*3/uL [facility] Lymphocytes Absolute Auto 1.1(L) 1.2 - 4.9 X10*3/uL [facility] Monocytes Absolute Auto 0.4 0.1 - 1.2 X10*3/uL [facility] Eosinophils Absolute Auto 0.1 0.0 - 0.4 X10*3/uL [facility] Basophils Absolute Auto 0.0 0.0 - 0.2 X10*3/uL [facility] NRBC Abs Auto 0.000 0.0 - 0.012 X10*3/uL [facility] 11/29/2022 10:4 6 AM EDT 11/29/2022 10:49 AM EDT us [facility] External Provider LAB BLO OD ORDERABLES Final Result [facility] [address] [place] [phone] documented in this encounter Visit Diagnoses Diagnosis Acute kidney injury (CMS/HCC)- Primary documented in this encounter Additional Health Concerns Assessment Noted Time PHQ-9 Depression Total Score: 10 023 1:58 PM EST documented as of this encounter Care Teams Director Of Optimization Relationship Specialty Start Date End Date Nelly Malik MD [address] [place] [phone] PCP - General Family Medicine 01/04/19 documented as of this encounter
--- OUTSIDE RECORDS SUMMARY | 2024-06-01 19:05 | XMS_ITS | Encounter Summary ---
Author Organization [employer] Address 75 [facility] 7t [place] [address] Care Team Providers Care Material Man Name Role Phone Nelly Malik MD Primary Care Provide r Reason for Visit * Reason Onset Date Comments Lungscreening 05/31/2024 Encounter Details Date Type Department Care Team ([facility] st Contact Info) Description 05/31/2024 Telephone [facility] [address] [place] [address] Nelly Malik MD [address] [place] [address] Lungscreening Social History Tobacco Use Types Packs/Day Years [...] encounter Miscellaneous Notes * Telephone Encounter - Karthik Nazario [place] - 05/31/2024 10:22 AM EST TC- FYI form fax and scanned in chart. documented in this encounter Plan of Treatment Upcoming Encounters Date Type Department Care Team (Late st Contact Info) Description 08/25/2024 3:15 PM EDT Office Visit [facility] [address] [place] [address] Nelly Malik MD [address] [place] [address] documented as of this encounter Visit Diagnoses Not on filedocumented in this encounter Additional Health Concerns Assessment Noted Time PHQ-9 Depression Total Score: 10 023 1:58 PM EST documented as of this encounter Care Teams Material Man Relationship Specialty Start Date End Date Nelly Malik MD [address] [place], [place] [phone] PCP - General Family Medicine 01/04/19 documented as of this encounter
--- OUTSIDE RECORDS SUMMARY | 2024-06-01 19:05 | XMS_ITS | Encounter Summary ---
Author Organization [employer] Address [address] [facility] 7t [place] [address] Care Team Providers Care Coder Name Role Phone Nelly Malik MD Primary Care Provide r Reason for Visit * Reason Onset Date Comments Care Management 05/19/2024 [facility]- chart revi ew Encounter Details Date Type Department Care Team ([facility] st Contact Info) Description 05/19/2024 Telephone [facility] MEDICINE [address] [place] [address] Nelly Malik MD [address] [place] [address] Care Management (CM- chart review) Social History Tobacco Use Types Packs/Day Years [...] encounter Miscellaneous Notes * Telephone Encounter - Jose Cota RN - 05/19/2024 9:51 AM EST LYNDA Cota RN, performed chart review, in anticipation of initial assessment with patient, aspatient has stratified for C3 Adult Complex Care through the ADT feed. History significant for acquired deviated nasal septum, anemia, chronic constipation, chronic hep c, chronic left shoulder pain, cirrhosis of liver, eczema, gastroesophageal reflux disease, HTN (hypertension), mood disorder, opioid dependence, tobacco dependence syndrome, periodontal disease, rotator cuff dysfunction, chronic cough. Specialists include [facility], [facility] hematology [facility]ology, [facility] dental, behavioralhealth, [facility] comprehensive care center[facility] ED visits within the last 12 months include [facility] 05/18/24 ([place]), [facility] 12/13/23, [facility] 11/22/23, [facility] 10/13/23, [facility] 09/04/23, [facility] 06/02/23. Last appointment in PCP office on02/28/24. No future appointment scheduled. documented in this encounter Plan of Treatment Upcoming Encounters Date Type Department Care Team (Late st Contact Info) Description 08/25/2024 3:15 PM EDT Office Visit [facility] MED[facility] [address] [place] [address] Nelly Malik MD [address] [place] [address] documented as of this encounter Visit Diagnoses Not on filedocumented in this encounter Additional Health Concerns Assessment Noted Time PHQ-9 Depression Total Score: 10 023 1:58 PM EST documented as of this encounter Care Teams Coder Relationship Specialty Start Date End Date Nelly Malik MD [address] [place] [phone] PCP - General Family Medicine 01/04/19 documented as of this encounter
--- OUTSIDE RECORDS SUMMARY | 2024-06-01 19:05 | XMS_ITS | Encounter Summary ---
Author Organization [facility] Address 75 [facility] 7t [place] [address] Care Team Providers Care Bake Room Worker Name Role Phone Nelly Malik MD Primary Care Provide r Reason for Visit * Reason Comments Med Refill Encounter Details Date Type Department Care Team (Late st Contact Info) Description 01/02/2023 Refill [facility] [address] [place] [phone] Soha Gómez MD [address] [place], [place] [phone] Primary hypertension Social History Tobacco Use Types [...] Description 08/25/2024 3:15 PM EDT Office Visit [facility] [address] [place] [phone] Nelly Malik MD [address] [place], [place] [phone] documented as of this encounter Visit Diagnoses Diagnosis Primary hypertension Unspecified essential hypertension documented in this encounter Additional Health Concerns Assessment Noted Time PHQ-9 Depression Total Score: 10 023 1:58 PM EST documented as of this encounter Care Teams Bake Room Worker Relationship Specialty Start Date End Date Nelly Malik MD [address] [place] [address] PCP - General Family Medicine 01/04/19 documented as of this encounter
== END 2024-06-01 16:42 | disposition home or self-care (01) ==
PROVIDERS: PCP Internal Medicine; Visit Provider Nurse Practitioner Psychiatric/Mental Health
DX: F11.90 Opioid use, unspecified, uncomplicated (principal)
CPT/HCPCS: 99213

== ENCOUNTER → 2024-06-01 15:45 | Outpatient (BNVA) | payer MEDICAID, SELFPAY | PROVIDERS: PCP Internal Medicine; Visit Provider Nurse Practitioner Psychiatric/Mental Health | DX: F11.20 Opioid dependence, uncomplicated (principal) | CPT/HCPCS: 99212 ==

== ENCOUNTER → 2024-06-21 13:50 | Outpatient (BNVA) | payer MEDICAID, SELFPAY | PROVIDERS: PCP Internal Medicine; Visit Provider Nurse Practitioner Psychiatric/Mental Health ==

== ENCOUNTER 2024-07-14 09:56 | Outpatient (AMB) | payer MEDICAID, SELFPAY ==
--- NOTE | 2024-07-14 10:09 | A.OFFVIS_ITS ---
Vital Signs 07/14/24 10:26 Height 5 ft 9 in Weight 137 lb BMI 20.2 Pulse 84 Pulse Source Pulse Oximeter Pulse Oximetry (%) 95 Oxygen Delivery Method Room Air Intake Visit Reasons: MAT Allergies latex [LATEX] Allergy (Mild, Verified 07/14/24 10:27) RASH HPI HPI MAT: Details: He says he borrowed a cigarette from neighbor four days ago and tasted funny. He has screen positive opiates and buprenorphine He thinks there was cocaine in cigarette also. He is studying for [employer] and hasnt passed written exam yet. [facility] Medical History Rotator cuff dysfunction Cirrhosis of liver without ascites Anemia Periumbilical abdominal pain Chronic constipation History of Helicobacter pylori infection Hypertension Depression History of drug abuse GERD (gastroesophageal reflux disease) Hepatitis C virus infection resolved after antiviral drug therapy Surgical History Hx of endoscopy History of colonoscopy H/O removal of cyst (~06/15/13) S/P excision of lipoma (~06/2014) H/O wisdom tooth extraction History of cholecystectomy (~2010) H/O inguinal hernia repair (~1989) Hx of tonsillectomy Family History Father History of high blood pressure Mother History of depression Maternal Uncle Liver cancer Maternal Aunt Liver cancer Social History Household Members: Family Household Members Other:: SISTER Unable to assess alcohol history related to: Unknown Alcohol intake: former Patient Tobacco Use Status: Current everyday Tobacco user Substance Use Type: Crack/Cocaine service: No Current occupational status: disabled Current occupation: right handed Review of Systems Const All systems reviewed & are unremarkable except as noted in HPI and below Physical Exam Vital Signs: Last Vital Signs Pulse 84 07/14/24 10:26 Pulse Ox 95 07/14/24 10:26 Oxygen Delivery Method Room Air 07/14/24 10:26 BMI result Body Mass Index 20.2 Const General: cooperative Results AMB 14 Panel Urine Drug Screen Urine Marijuana (THC) Negative Last Edit by Reilly Marte CMA on 07/14/24 10:29 Urine Cocaine Negative Last Edit by Reilly Marte CMA on 07/14/24 10:29 Urine Morphine Positive Last Edit by Reilly Marte CMA on 5 10:29 Urine Methamphetamine Negative Last Edit by Reilly Marte CMA on 07/14/24 10:29 Urine Amphetamine Negative Last Edit by Reilly Marte CMA on 07/14/24 10:29 Urine Benzodiazepine Negative Last Edit by Reilly Marte CMA on 07/14/24 10:29 Urine Barbiturates Negative Last Edit by Reilly Marte CMA on 07/14/24 10:29 Urine Methadone Negative Last Edit by Reilly Marte CMA on 10:29 Urine Buprenorphine Positive Last Edit by Reilly Marte CMA on 07/14/24 10:29 Urine Tricyclic Antidepressant Negative Last Edit by Reilly Marte CMA on 07/14/24 10:29 Urine MDMA Negative Last Edit by Reilly Marte CMA on 07/14/24 10 :29 Urine Oxycodone Negative Last Edit by Reilly Marte CMA on 10:29 Urine Phencyclidine Negative Last Edit by Reilly Marte CMA on 07/14/24 10:29 Urine Propoxyphene Negative Last Edit by Reilly Marte CMA on 07/14/24 10:29 Results Reviewed Results Reviewed: Laboratory Last Values POC Urine Buprenorphine Positive 07/14/24 10:27 POC Urine Morphine Positive 07/14/24 10:27 POC Urine Oxycodone Negative 07/14/24 10:27 POC Urine Methadone Negative 07/14/24 10:27 POC Urine Propoxyphene Negative 07/14/24 10:27 POC Urine Barbiturates Negative 07/14/24 10:27 POC U Tricyclic Antidpr Negative 07/14/24 10:27 POC Urine PCP Negative 07/14/24 10:27 POC Ur Amphetamines Negative 07/14/24 10:27 POC Ur Methamphetamine Negative 07/14/24 10:27 POC Urine MDMA Negative 07/14/24 10:27 POC Ur Benzodiazepine Negative 07/14/24 10:27 POC Urine Cocaine Negative 07/14/24 10:27 POC Ur Marijuana (THC) Negative 07/14/24 10:27 Assessment & Plan Assessment & Plan (1) Opioid use disorder: Comment: He has used opioids and did use by mistake from neighbor four days ago he says He has no depression Code(s): F1.90 - Opioid use, unspecified, uncomplicated Category: Medical Plan: One month followup. He declines counseling or peer support. He says 12/ enough daily Check HIV and recheck Hepatitis C (he was treated in 2007 with resolution). Orders: Orders Hepatitis C Viral Load Today - Opioid use, unspecified, uncomplicated Syphilis Screen Today - Opioid use, unspecified, uncomplicated Hepatitis B Surface Antibody Today - Opioid use, unspecified, uncomplicated Hepatitis B Surface Antigen Today - Opioid use, unspecified, uncomplicated T Spot TB Today - Opioid use, unspecified, uncomplicated Liver Fibrosis Pnl Today F1 - Opioid use, unspecified, uncomplicated Liver Panel Today F1 - Opioid use, unspecified, uncomplicated AMB 14 Panel Urine Drug Screen Today Z51.81 - Encounter for therapeutic drug level monitoring Prothrombin Time INR Today - Opioid use, unspecified, uncomplicated Complete Blood Count Auto Diff Today - Opioid use, unspecified, uncomplicated Basic Metabolic Panel Today F190 - Opioid use, unspecified, uncomplicated Medications: New buprenorphine-naloxone 12-3 mg 1 film sublingual DAILY 30 days 30 ea 0RF Coding Level of Care Code Est Pt Level 4 (09905) Diagnoses Opioid use disorder
[2024-07-14 10:26] VITALS: PULSE 84; O2SAT 95; BMI 20.2
== END 2024-07-14 10:51 | disposition home or self-care (01) ==
LOC: HO.HCC 09:57
PROVIDERS: PCP Internal Medicine; Visit Provider Internal Medicine
DX: Z51.81 Encounter for therapeutic drug level monitoring (principal); F11.90 Opioid use, unspecified, uncomplicated
CPT/HCPCS: 99214

== ENCOUNTER → 2024-07-14 09:56 | Outpatient (BNVA) | payer MEDICAID, SELFPAY | PROVIDERS: PCP Internal Medicine; Visit Provider Internal Medicine | DX: F11.20 Opioid dependence, uncomplicated (principal) | CPT/HCPCS: 80307; 99212 ==